=== PATIENT | female | born 1935 | race Caucasian/White ===

== ENCOUNTER 2017-10-27 17:59 | Emergency (ER) | payer MEDICARE ==
[~2017-10-27] VITALS: Ht 165.1 cm; Wt 65.8 kg
[~2017-10-27 17:59] MED LIST: ATENOLOL25 MG PO; CALCIUM + VITA1 EACH PO; MULTIVITAMINS1 EAC7 PO; NORCO 5-325 TA1 EACH PO; SIMVASTATIN10 MG PO; VISION VITAMIN1 EACH PO; VITAMIN B COMP1 EACH PO; VITAMIN C500 M1 PO; VITAMIN E100 UNI1 PO
== END 2017-10-27 19:15 | disposition home or self-care (01) ==
LOC: ED 17:59
DX: M79.605 Pain in left leg (principal); I10 Essential (primary) hypertension; Z87.891 Personal history of nicotine dependence; Z88.8 Allergy status to other drugs, medicaments and biological substances; Z79.899 Other long term (current) drug therapy
CPT/HCPCS: 93971; 99283

== ENCOUNTER 2018-04-17 13:00 | Inpatient (IN) | payer MEDICARE ==
[~2018-04-17] VITALS: Ht 165.1 cm; Wt 85.5 kg
[~2018-04-17 13:00] MED LIST changes: +ADULT ASPIRIN81 MG PO
--- OUTSIDE RECORDS SUMMARY | 2018-04-17 13:04 | XMS ---
PreManage Notification: ROBBIN TAYLOR Security Pasta Maker Events No recent Security Events currently on file CRITERIA MET - [facility] - 2 Visits in 30 Days CARE PROVIDERS Ollie Singletary Treatment Current MD PHONE: Unknown Lian has no Care Guidelines for this patient. [place] VISIT COUNT (12 MO.) 3 [facility] TOTAL 3 NOTE: Visits indicate total known visits. ED/UCC VISIT TRACKING (12 MO.) 04/17/2018 13:00 [facility] TYPE: Emergency COMPLAINT: - SOB 04/05/2018 11:09 [facility] TYPE: Emergency COMPLAINT: - SOB DIAGNOSES: - Other longterm (current) drug therapy - Personal history of transient ischemic attack (TIA), and cerebral infarction without residual deficits - terminal operator (current) use of aspirin - Unspecified atrial fibrillation - Essential (primary) hypertension - Personal history of nicotine dependence - Hyperlipidemia, unspecified - Allergy status to other drugs, medicaments and biological substances status - Shortness of breath 10/27/2017 17:59 [facility] [place] TYPE: Emergency COMPLAINT: - POSS BLOOD CLOT DIAGNOSES: - Allergy status to other drugs, medicaments and biological substances status - Essential (primary) hypertension - Other watermelon inspector (current) drug therapy - Personal history of nicotine dependence - Pain in left leg INPATIENT VISIT TRACKING (12 MO.) No inpatient visits to display in this time frame [id number]
[2018-04-17] MEDS ORDERED: WARFARIN SODIUM5 MG PO (13:14)
--- NOTE | 2018-04-17 16:57 | NUR ---
REPORT FROM ED NURSE GISELL DOUGHERTY. WAITING PTS ARRIVAL
[2018-04-17] MEDS ORDERED: SIMVASTATIN20 MG PO (17:12)
--- NOTE | 2018-04-17 17:30 | NUR ---
PT ARRIVES TO CCU ROOM 130. PT TRANSFERS TO BSC THEN BED. STEADY ON FEET
--- NOTE | 2018-04-17 18:11 | NUR ---
PT ORIENTED TO NEW ROOM. DECLINES DINNER AT THIS TIME. NEW IV SITE TO RIGHT HAND. PT GIVEN PHONE TO CALL FAMILY. DENIES NEEDS AT THIS TIME.
--- NOTE | 2018-04-17 18:39 | NUR ---
PT UP TO BEDSIDE COMMODE TO VOID. PT VERY SOB WITH EXERTION. INCREASED WORK OF BREATHING, TACHYPNIC UP TO 40 AND PULSE UP TO 160. PT RECOVERED WHEN BACK TO BED, THOUGH NOT COMPLETELY WITH OUT RESTING FOR A LONG TIME. WILL DISCUSS WITH DR BRADY
--- NOTE | 2018-04-17 18:55 | NUR ---
FULLER PLACED AFTER SPEAKING WITH DR BRADY. IMMIDEIATE RETURN OF 320 ML.
--- NOTE | 2018-04-17 18:55 | NUR ---
DILT DRIP TITRATED UP 10 MG/HR.
--- NOTE | 2018-04-17 19:22 | NUR ---
REPORT GIVEN TO JOEL
--- NOTE | 2018-04-17 19:59 | NUR ---
PATIENT RESTING IN BED WITH HOB ELEVATED, APPEARS SOB. SPO2 IS 97% ON ROOM AIR, RR IS 30. REPOSITIONED PATIENT IN BED, PATIENT STATES IT FEELS BETTER ONCE SITTING IN BETTER POSITION. STATES SHE CONTINUES TO FEEL MILDLY SOB. WHEN SITTING UP TO LISTEN TO LUNG SOUNDS, PATIENT'S SOB WORSENS, IMPROVES QUICKLY AT REST. DENIES NEEDS AT THIS TIME, DENIES PAIN. HEART RATE WELL CONTROLLED, BP WNL, CARDIZEM GTT AT 10 MG/HR. PERIPHERAL PULSES WELL FELT, HAS 1+ EDEMA IN BLE. CALL LIGHT WITHIN REACH.
--- NOTE | 2018-04-17 21:20 | NUR ---
PATIENT RESTFUL WITH EYES CLOSED, BREATHING APPEARS UNLABORED, RR IS 25, SPO2 95% ON ROOM AIR. CARDIZEM GTT AT 7.5 MG/HR, HEART RATE BETWEEN 80 AND 95. CALL LIGHT WITHIN REACH.
--- NOTE | 2018-04-17 23:47 | NUR ---
CARDIZEM GTT TITRATED TO 7.5 MG/HRR.
--- NOTE | 2018-04-17 23:55 | NUR ---
DR. BRADY NOTIFIED ABOUT PATIENT'S TACHYPNEA AND COARSE CRACKLES IN BLL OF LUNGS. X1 DOSE OF 40 MG IV LASIX ORDERED. ALSO NOTIFIED MD THAT BLOOD NOTED IN URINE AND THAT SMALL CLOTS ARE PRESENT. NO NEW ORDERS AT THIS TIME.
--- NOTE | 2018-04-18 00:20 | NUR ---
CARDIZEM GTT TITRATED TO 5 MG/HR DUE TO HEART RATE OF 73. 40 MG IV LASIX GIVEN X1. PATIENT IS RESTFUL, DENIES NEEDS. CALL LIGHT WITHIN REACH.
--- NOTE | 2018-04-18 01:34 | NUR ---
PATIENT PLACED ON 2L O2 VIA NC DUE TO SPO2 DOWN TO 85% WHILE ASLEEP.
--- NOTE | 2018-04-18 03:00 | NUR ---
PATIENT RESTFUL IN BED, BREATHING IS EVEN AND UNLABORED ON 2L O2, SPO2 95%. CARDIZEM GTT TURNED OFF. CALL LIGHT WITHIN REACH.
--- NOTE | 2018-04-18 04:00 | NUR ---
PATIENT RESTING WITH EYES CLOSED. BREATHING IS EVEN AND UNLABORED, SPO2 93% ON 2L O2. LUNG SOUNDS IMPROVED AFTER LASIX ADMINISTRATION, MINIMAL CRACKLES HEART IN LEFT LOWER LUNG. PATIENT DENIES NEEDS AT THIS TIME. CALL LIGHT WITHIN REACH.
--- NOTE | 2018-04-18 06:12 | NUR ---
PATIENT ASSISTED TO BEDSIDE COMMODE TO HAVE BM, SBA. UNABLE TO HAVE BM, NOW BACK IN BED. RR INCREASED TO 30 WITH ACTIVITY, PATIENT REPORTS FEELING MILDLY SOB. QUICKLY RECOVERS ONCE IN BED. DENIES FURTHER NEEDS. CALL LIGHT WITHIN REACH.
--- NOTE | 2018-04-18 07:16 | EKG ---
[facility] [address] [place] [address] Signed Atrial fibrillation with rapid ventricular response Left axis deviation Nonspecific intraventricular block Cannot rule out Septal infarct , age undetermined Abnormal ECG When compared with ECG of 05-APR-2018 11:26, Minimal criteria for Septal infarct are now present Confirmed by CLYDE BRADY MD ([id number]) on 04/18/2018 7:16:15 AM Electronically Signed By: CLYDE BRADY MD 04/18/18 0716 PATIENT NAME: ROBBIN TAYLOR Electrocardiogram DATE OF : 39 PHYSICIAN: CLYDE BRADY MD REPORT #: [id number] REPORT IS CONFIDENTIAL AND NOT TO BE RELEASED WITHOUT AUTHORIZATION
--- NOTE | 2018-04-18 07:30 | NUR ---
REPORT RC'D FROM NETWORK FIELD ENGINEER NURSES VIJI. REPORTS CARDIZEM GTT DC'D AT 0300, HR WELL CONTROLLED. PT CURRENTLY RESTING IN BED, RESPIRATIONS EVEN AND UNLABORED, NO ACUT DISTRESS NOTED.
--- NOTE | 2018-04-18 09:00 | NUR ---
PT UP IN BED AND REQUESTING BREAKFAST. PT A&O X4 AND RESPONDING APPROPRIATELY. CARDIZEM GTT DC'D, HR IN LOW 100'S, CONTINUE TO MONITOR. BUL CLEAR, CRACKLES TO RLL, LLL CLEAR, ON ROOOM AIR, OCCANSIONAL COUGH. TOLERATING CARDIAC DIET, DENIES NAUSEA. FULLER CATH IN PLACE DRAINING TEA COLORED URINE, BROWN SEDIMENT NOTED. PT DUE FOR BM. +1 EDEMA NOTED TO BLE. EDUCATION PROVIDED ON NEW MEDICATIONS AND POSSIBLE SIDE EFFECTS, ALL QUESTIONS ANSWERED, VERBALIZED UNDERSTANDING. PT TO TRANSFER TO MEDICAL FLOOR LATE THIS MORNING.
--- NOTE | 2018-04-18 10:20 | NUR ---
REPORT GIVEN TO MEDICAL FLOOR NURSE FRANKIE. PT SBA TO CHAIR, TOELRATED WELL. PT TRANSFERED VIA CHAIR WITH JUAN MAZARIEGOS TO MEDICAL FLOOR.
--- NOTE | 2018-04-18 10:31 | NUR ---
PT ARRIVED TO UNIT VIA CHAIR. ALERT AND ORIENTED TO ALL. DENIES PAIN OR SOB AT REST. IV SL, FLUSHES WELL, DRESSING INTACT. FULLER PATENT PUTTING OUT DARK YELLOW URINE. ASSESSMENT COMPLETED. CALL LIGHT WITHIN REACH.
--- NOTE | 2018-04-18 13:30 | NUR ---
PT SITTING UP IN CHAIR. ATE 100% OF LUNCH, FREDA WELL. PT SBA TO RESTROOM TO BRUSH HER TEETH. CAPPS BUT STATES "IT'S BETTER THAN IT WAS BEFORE." AMB BACK TO RECLINER. CALL LIGHT WITHIN REACH.
[2018-04-18] MEDS ORDERED: OMEGA 3-6-9 11200 M1 PO (13:45)
--- NOTE | 2018-04-18 14:35 | NUR ---
PATIENT IN CHAIR. FRESH WATER GIVEN. CALL LIGHT IN REACH. NO FURTHER NEEDS AT THIS TIME.
--- NOTE | 2018-04-18 14:42 | NUR ---
PT REPORTS NEED TO HAVE BM. HAS BEEN TWO DAYS SINCE PAST BM. SHE SAID SHE USUALLY EATS SOMETHING GREASY AT HOME. RN ASKED IF PRUNE JUICE MIGHT HELP, PT SAID, "YES, THAT JUST MIGHT WORK." RN ORDERED FROM KITCHEN.
--- NOTE | 2018-04-18 16:07 | NUR ---
PT IN RECLINER SLEEPING SOUNDLY. RESP EVEN AND UNLABORED.
--- NOTE | 2018-04-18 17:47 | NUR ---
PATIENT SITING UP IN CHAIR. PATIENT STANDS UP TO USE BASE COMMODE. ONE PERSON ASSISTING. PATIENT BACKS TO BED. VITAL SIGNS AND I&O DONE. CALL LIGHT WITHIN REACH. NO OTHER NEEDS AT THIS TIME
--- NOTE | 2018-04-18 17:48 | NUR ---
CALLED DUE TO SUSTAINED TACHYCARDIA 120'S 160'S HEART RATE AT REST. MD SAID SHE WOULD PUT IN ORDER
--- NOTE | 2018-04-18 18:31 | NUR ---
CHARGE NURSE NOTIFIED THIS RN THAT PT WAS HAVING ELEVATED HR 140-150. PT ASSESSED. ASYMPTOMATIC, VS WITHING NORMAL RANGE FOR PT (SEE DOCUMENTED VS). DR. BRADY NOTIFED AND NEW ORDERS WRITTEN. MEDS ADMINISTERED AT THIS TIME. PT SITTING IN BED. CALL LIGHT WITHIN REACH. WILL CONT TO MONITOR CLOSELY.
--- NOTE | 2018-04-18 19:30 | NUR ---
RECEIVED REPORT FROM DAY SHIFT RN. PATIENT IS RESTING IN BED. PATIENT DENIES ANY NEEDS AT THIS TIME. CALL LIGHT IN REACH.
--- NOTE | 2018-04-18 20:20 | NUR ---
PATIENT ASSESMENT COMPLETED. VITALS TAKEN AND RECORDED. PATIENTS EVENING MEDICATIONS GIVEN PER ORDER. PATIENT IS RESTING IN BED. PATIENT DENIES ANY SOB AT THIS TIME. PATIENT IS ON TELE #4, IRREFGULAR RHYTHM, HR 83. PATIENT DENIES ANY COMMENTS, QUESTIONS, OR CONCERNS. NO NEEDS NOTED. CALL LIGHT IN REACH.
--- NOTE | 2018-04-18 22:59 | NUR ---
PATIENT IS RESTING IN BED WITH EYES CLOSED. PATIENTS BREATHING IS EVEN AND UNLABORED. TELE #4, IRREGULAR RHYTM, HR 91. CALL LIGHT IN REACH.
--- NOTE | 2018-04-19 00:08 | NUR ---
PATIENT IS RESTING IN BED WITH EYES CLSOED, RR 17. TELE #4, HR 88. CALL LIGHT IN REACH.
--- NOTE | 2018-04-19 02:33 | NUR ---
PATIENTS VITALS TAKEN AND RECORDED. PATIENTS FULLER EMPTIED. PATIENTS 0200 MEDICATIONS GIVEN PER ORDER. PATIENT DENIES ANY FURTHER NEEDS. CALL LIGHT IN REACH.
--- NOTE | 2018-04-19 03:52 | NUR ---
PATIENT IS RESTING IN BED WITH EYES CLSOED, RR 18. TELE #4, IRREGULAR RHYTHM, HR 81. CALL LIGHT IN REACH.
--- NOTE | 2018-04-19 05:37 | NUR ---
PATIENT RESTED WELL THROUHGOUT THE SHIFT. PATIENT IS ON A CARDIAC DIET AND IS TOLERATING IT WELL, NO COMPLAINTS OF NAUSEA. PATIENT IS ON RA. FULLER IN PLACE-NOT CHRONIC. PATIENT IS A SBA AND IS STEADY ON HER FEET. PATIENT IS SL AND IV FLUSHES WELL. PATIENT IS ON TELE #4, IRREGULAR RHYTHM, HR IN BETWEEN 90-105. PATIENT IS AAOX3 AND USES CALL LIGHT APPROPRIATELY.
--- NOTE | 2018-04-19 06:02 | NUR ---
PATIENTS VITALS TAKEN AND RECORDED. PATIENTS DAILY WEIGHT TAKEN AND RECORDED. FULLER EMPTIED. PATIENTS ICE WATER REFILLED. PATIENT DENIES ANY FURTHER NEEDS. PATIENT REMAINS ON TELE #4, IRREGULAR, HR 88. NO NEEDS NOTED. CALL LIGHT IN REACH.
--- NOTE | 2018-04-19 07:35 | NUR ---
Patient was awake, face washed, call light n reach and fresh water given. Patient will take a shower after Breakfast.
--- NOTE | 2018-04-19 08:46 | NUR ---
PATIENT WAS UP TO THE BATHROOM WHEN I ENTERED THE ROOM, SHE HAD A LOOSE BM SO SHE REFUSED THE STOOL SOFTNERS AND MIRALAX ORDERED THIS AM. SHE IS STEADY ON HER FEET AND WAS ABLE TO WALK FROM THE BATHROOM TO THE CHAIR WITHOUT ANY ASSISTANCE. SHE HAS NO C/O CHEST PAIN OR FEELING OF HEART RACING ALTHOUGHT THE TELE PER CCU STATES THAT HR IN THE BR IS 180 DOCTOR CAITLYN NOTIFIED AND AM MEDICATION GIVEN. PATIENT VITALS DONE AND SHE IS UP TO THE CHAIR.
--- NOTE | 2018-04-19 08:48 | NUR ---
FULLER REMOVED, 200 MLS EMPTIED OF YELLOW URINE.
--- NOTE | 2018-04-19 09:53 | NUR ---
PATIENT ASLEEP UP IN THE CHAIR, CALL LIGHT IN HER LAP, TELE #4 ON HR 108
--- NOTE | 2018-04-19 10:52 | NUR ---
PATIENT BACK TO BED AFTER TAKING A SHOWER WITH THE ASSIST OF THE BOILING TUB OPERATOR. PATIENT STATES THAT SHE FEELS 100% BETTER AFTER SHOWERING. HOB ELEVATED AND SHE REMAINS ON RA. NO C/O PAIN OR SOB AT THIS TIME
[2018-04-19] MEDS ORDERED: CEPHALEXIN250 MG PO (11:43)
[2018-04-19] MEDS ORDERED: COUMADIN2 MG PO (11:43)
[2018-04-19] MEDS ORDERED: DILTIAZEM 24HR120 MG PO (11:44)
[2018-04-19] MEDS ORDERED: COREG3.125 MG PO (11:44)
--- NOTE | 2018-04-19 11:56 | NUR ---
Patient ate breakfast than wanted a shower,patient did her own oral care, and did most of her body wash. Patient is STB A. Patient is now back in her bed. call light in reach.
[2018-04-19] MEDS ORDERED: WARFARIN SODIUM1 MG PO (11:58)
--- NOTE | 2018-04-19 12:03 | NUR ---
PATIENT'S IV IN THE RIGHT HAND DC'D TIP INTACT, TELE ALSO DC'D PATIENT DENIES OTHER NEEDS AT THIS TIME
--- NOTE | 2018-04-19 12:52 | NUR ---
PATIENT GIVEN D/C INSTRUCTIONS, QUESTIONS ANSWERED AND CAREGIVER WEB SITE INSTRUCTIONS FOR [place] GIVEN TO HER FOR HELP AT HOME PER HER REQUEST. PATIENT REMAINS STEADY ON HER FEET WITHOUT ANY CHEST PAIN.
--- NOTE | 2018-04-20 12:24 | NUR ---
Heart failure follow up call #1 DC diagnosis of heart failure likely reduced EF, echo was deferred due to holiday. To follow up with Dr. Jensen today at 1345. Spoke to patient concerning heart failure home care and DC orders. She states she has stopped one BB and started the new one. Has all of her new medications. She does not have a working scale. Does not feel she understands what she is suppose to eat on low salt diet. She lives alone and her sister will be bringing her to today's cardiology visit. I have taken a Medline digital scale and heart failure packet, including low sodium shopping list and lower salt dining options, to Dr. Jensen's office for patient to corn picker today.
[2018-04-21] MEDS ORDERED: FUROSEMIDE20 MG PO (11:53)
[2018-04-28] MEDS ORDERED: WARFARIN SODIUM5 MG PO (09:13)
[2018-05-10] MEDS ORDERED: WARFARIN SODIU2.5 MG PO (13:23)
[2018-05-31] MEDS ORDERED: AMIODARONE HCL200 MG PO (10:09)
== END 2018-04-19 15:11 | disposition home or self-care (01) | DRG 291 ==
LOC: ED 13:00 → CCU 16:41 → MS 16:41
PROVIDERS: ADMIT Internal Medicine
DX: I11.0 Hypertensive heart disease with heart failure (principal); I50.21 Acute systolic (congestive) heart failure; D68.9 Coagulation defect, unspecified; N39.0 Urinary tract infection, site not specified; I48.91 Unspecified atrial fibrillation; E78.5 Hyperlipidemia, unspecified; I44.7 Left bundle-branch block, unspecified; B96.20 Unspecified Escherichia coli [E. coli] as the cause of diseases classified elsewhere; E55.9 Vitamin D deficiency, unspecified; T45.515A Adverse effect of anticoagulants, initial encounter; Z79.01 Long term (current) use of anticoagulants; Z86.73 Personal history of transient ischemic attack (TIA), and cerebral infarction without residual deficits; Z79.82 Long term (current) use of aspirin; Z87.891 Personal history of nicotine dependence
CPT/HCPCS: 36415; 71045; 80048; 80053; 81001; 83735; 83880; 84484; 85025; 85610; 85730; 87077; 87088; 87186; 93005; 93010; 99285-25

== ENCOUNTER 2018-05-25 13:03 | Emergency (ER) | payer MEDICARE ==
[~2018-05-25] VITALS: Ht 165.1 cm; Wt 85.5 kg
[~2018-05-25 13:03] MED LIST changes: +CEPHALEXIN250 MG PO; +COREG3.125 MG PO; +COUMADIN2 MG PO; +DILTIAZEM 24HR120 MG PO; +FUROSEMIDE20 MG PO; +OMEGA 3-6-9 11200 M1 PO; +SIMVASTATIN20 MG PO; +WARFARIN SODIU2.5 MG PO; +WARFARIN SODIUM1 MG PO; +WARFARIN SODIUM5 MG PO
--- OUTSIDE RECORDS SUMMARY | 2018-05-25 13:06 | XMS ---
PreManage Notification: ROBBIN TAYLOR Security Gas Station Manager Events No recent Security Events currently on file CRITERIA MET - [facility] - Has Care Guidelines CARE PROVIDERS DIVINE SOLITARIO [facility] 04/27/2018-Current PHONE: [phone] Chandan Solitario Internal Medicine: Pulmonary Disease 04/20/2018-Current PHONE: Unknown Ollie Singletary Current PHONE: Unknown Lian has no Care Guidelines for this patient. Care History Medical/Surgical 04/20/2018 [facility] - Patient is currently established with [facility]. If patient is seen in the ED during business hours. Please contact CHWs at [facility]. Care Recommendation: This patient has had 5 or more Emergency Department visits in the last 12 months.\T\nbsp; Patient requires education on the scope and purpose of the ED as an acute care provider not a Primary Care Provider and should not be utilized for chronic conditions.\T\nbsp; These are guidelines and the provider should exercise clinical judgment when providing care. E.D. VISIT COUNT (12 MO.) 4 [facility] TOTAL 4 NOTE: Visits indicate total known visits. ED/UCC VISIT TRACKING (12 MO.) 05/25/2018 13:04 [facility] TYPE: Emergency COMPLAINT: - CHEST PAIN 04/17/2018 13:00 [facility] TYPE: Emergency COMPLAINT: - SOB 04/05/2018 11:09 [facility] TYPE: Emergency COMPLAINT: - SOB DIAGNOSES: - Other nursing home (current) drug therapy - Personal history of transient ischemic attack (TIA), and cerebral infarction without residual deficits - half-way (current) use of aspirin - Unspecified atrial [...] status - Essential (primary) hypertension - Other terminal computer operator (current) drug therapy - Personal history of nicotine dependence - Pain in left leg INPATIENT VISIT TRACKING (12 MO.) 04/17/2018 16:[address] [facility] [place] TYPE: Medical Surgical COMPLAINT: - A-FIB,RVR,COAGULOPATHY DIAGNOSES: - Coagulation defect, unspecified - Personal history of nicotine dependence - buttermaker continuous churn (current) use of aspirin - Adverse effect of anticoagulants, initial encounter - Hypertensive heart disease with heart failure - Unspecified atrial fibrillation - Left bundle-branch block, unspecified - Acute systolic (congestive) heart failure - Urinary tract infection, site not specified - Hyperlipidemia, unspecified - Vitamin D deficiency, unspecified - Personal history of transient ischemic attack (TIA), and cerebral infarction without residual deficits - buttermaker continuous churn (current) use of anticoagulants - Unspecified Escherichia coli [E. coli] as the cause of diseases classified elsewhere [email or web address]
--- NOTE | 2018-05-26 00:33 | EKG ---
[facility] [address] [place] [address] Signed Atrial fibrillation with rapid ventricular response Left axis deviation Left bundle branch block Abnormal ECG When compared with ECG of 17-APR-2018 13:06, No significant change was found Confirmed by MIKKI JONAS MD ([id number]) on 05/26/2018 12:33:49 AM Electronically Signed By: MIKKI JONAS MD 05/26/18 0033 PATIENT NAME: CLAUDIAROBBIN RACHEL Electrocardiogram DATE OF : 39 PHYSICIAN: MIKKI JONAS MD REPORT #: [id number] REPORT IS CONFIDENTIAL AND NOT TO BE RELEASED WITHOUT AUTHORIZATION
--- NOTE | 2018-05-26 00:34 | EKG ---
[facility] [address] [place] [address] Signed Atrial fibrillation Left axis deviation Left bundle branch block Abnormal ECG When compared with ECG of 25-MAY-2018 13:12, (Unconfirmed) Vent. rate has decreased BY 70 BPM Confirmed by MIKKI JONAS MD ([id number]) on 05/26/2018 12:33:57 AM Electronically Signed By: MIKKI JONAS MD 05/26/18 0034 PATIENT NAME: ROBBIN TAYLOR Electrocardiogram DATE OF : 39 PHYSICIAN: MIKKI JONAS MD REPORT #: [id number] REPORT IS CONFIDENTIAL AND NOT TO BE RELEASED WITHOUT AUTHORIZATION
--- NOTE | 2018-05-26 00:34 | EKG ---
[facility] [address] [place] [address] Signed Normal sinus rhythm Left axis deviation Left bundle branch block Abnormal ECG When compared with ECG of 25-MAY-2018 13:49, (Unconfirmed) Sinus rhythm has replaced Atrial fibrillation Confirmed by MIKKI JONAS MD ([id number]) on 05/26/2018 12:34:08 AM Electronically Signed By: MIKKI JONAS MD 05/26/18 0034 PATIENT NAME: ROBBIN TAYLOR Electrocardiogram DATE OF : 39 PHYSICIAN: MIKKI JONAS MD REPORT #: [id number] REPORT IS CONFIDENTIAL AND NOT TO BE RELEASED WITHOUT AUTHORIZATION
[2018-05-31] MEDS ORDERED: AMIODARONE HCL200 MG PO (10:09)
== END 2018-05-25 16:57 | disposition home or self-care (01) ==
LOC: ED 13:03
DX: I48.91 Unspecified atrial fibrillation (principal); I10 Essential (primary) hypertension; E78.5 Hyperlipidemia, unspecified; Z87.891 Personal history of nicotine dependence; Z88.8 Allergy status to other drugs, medicaments and biological substances; Z79.899 Other long term (current) drug therapy; Z79.01 Long term (current) use of anticoagulants; Z79.82 Long term (current) use of aspirin
CPT/HCPCS: 80048; 84484; 85025; 85610; 85730; 93005; 93010; 96374; 96375; 99152; 99285-25; J0282; J2704; J7060

== ENCOUNTER 2019-07-18 08:50 | Emergency (ER) | payer MEDICARE ==
[~2019-07-18] VITALS: Ht 165.1 cm; Wt 85.3 kg
[~2019-07-18 08:50] MED LIST changes: +ACYCLOVIR400 MG PO; +AMIODARONE HCL200 MG PO; +CARVEDILOL12.5 MG PO; +CARVEDILOL6.25 MG PO
--- OUTSIDE RECORDS SUMMARY | 2019-07-18 08:52 | XMS ---
PreManage Notification: ROBBIN OJEDA Security Log Check Scaler Events No recent Security Events currently on file CRITERIA MET - [facility] - Has Care Guidelines CARE PROVIDERS DIVINE COOPER [facility] 04/27/2018-Current PHONE: [phone] ALLISON ALVAREZ Internal Medicine: Pulmonary Disease 04/20/2018-Current PHONE: Unknown Ollie Singletary Current PHONE: Unknown Lian has no Care Guidelines for this patient. Care History Medical/Surgical 04/20/2018 [facility] - Patient is currently established with [facility]. If patient is seen in the ED during business hours. Please contact CHWs at [facility]. Care Recommendation: This patient has had 5 [...] providing care. E.D. VISIT COUNT (12 MO.) 1 [facility] TOTAL 1 NOTE: Visits indicate total known visits. ED/C VISIT TRACKING (12 MO.) 07/18/2019 08:50 [facility] TYPE: Emergency COMPLAINT: - RAPID HEART BEAT INPATIENT VISIT TRACKING (12 MO.) No inpatient visits to display in this time frame [email or web address]
== END 2019-07-18 10:44 | disposition home or self-care (01) ==
LOC: ED 08:50
DX: I48.0 Paroxysmal atrial fibrillation (principal); I10 Essential (primary) hypertension; E78.5 Hyperlipidemia, unspecified; Z87.891 Personal history of nicotine dependence; Z79.899 Other long term (current) drug therapy
CPT/HCPCS: 80053; 83735; 84484; 85025; 85610; 99285-25

== ENCOUNTER 2020-05-22 11:31 | Emergency (ER) | payer MEDICARE ==
[~2020-05-22] VITALS: Ht 165.1 cm; Wt 85.3 kg
[~2020-05-22 11:31] MED LIST changes: +ADULT ASPIRIN R81 MG PO; +AMIODARONE HCL100 MG PO; -CARVEDILOL6.25 MG PO; +VITAMIN D325 MCG; +VITAMIN D325 MCG PO
--- OUTSIDE RECORDS SUMMARY | 2020-05-22 11:34 | XMS ---
PreManage Notification: ROBBIN OJEDA Security Stuntman Events No recent Security Events currently on file CRITERIA MET - [facility] - Has Care Guidelines CARE PROVIDERS DIVIEN SOLITARIO [facility] 04/27/2018-Current PHONE: [phone] ALLISON ALVAREZ Internal Medicine: Pulmonary Disease 04/20/2018-Current PHONE: Unknown Lian has no Care Guidelines for this patient. Care History Medical/Surgical 07/19/2019 [facility] Patient has scheduled appointment with Dr. Solitario on 08/16/2019.\T\nbsp; Patient stated she was not able to get in earlier for follow up visit as PCP is booked.\T\nbsp; Sent request for 7-10 day follow up visit. 04/20/2018 [facility] - Patient is currently established with [facility]. If patient is seen in the ED during business hours. Please contact CHWs at [facility]. Care Recommendation: This patient has had [...] providing care. E.D. VISIT COUNT (12 MO.) 2 [facility] TOTAL 2 NOTE: Visits indicate total known visits. ED/UCC VISIT TRACKING (12 MO.) 05/22/2020 11:32 [facility] [place] TYPE: Emergency COMPLAINT: - CHEST PAIN 07/18/2019 08:[address] [facility] [place] TYPE: Emergency COMPLAINT: - RAPID HEART BEAT DIAGNOSES: - Hyperlipidemia, unspecified - Unspecified atrial fibrillation - Paroxysmal atrial fibrillation - Personal history of nicotine dependence - Other buttermaker (current) drug therapy - Essential (primary) hypertension - Paroxysmal atrial fibrillation INPATIENT VISIT TRACKING (12 MO.) No inpatient visits to display in this time frame [id number]
--- NOTE | 2020-05-22 23:53 | EKG ---
[facility] [address] [place] [address] Signed Sinus bradycardia Left axis deviation Left bundle branch block Abnormal ECG When compared with ECG of 22-MAY-2020 11:39, (Unconfirmed) Vent. rate has decreased BY 70 BPM Confirmed by CLYDE BRADY MD ([id number]) on 05/22/2020 11:53:40 PM Electronically Signed By: CLYDE BRADY MD 05/22/20 2353 PATIENT NAME: ROBBIN OJEDA Electrocardiogram DATE OF : 39 PHYSICIAN: CLYDE BRADY MD REPORT #: [id number] REPORT IS CONFIDENTIAL AND NOT TO BE RELEASED WITHOUT AUTHORIZATION
--- NOTE | 2020-05-22 23:53 | EKG ---
[facility] [address] [place] [address] Signed Sinus tachycardia Left axis deviation Left bundle branch block Abnormal ECG Confirmed by CLYDE BRADY MD ([id number]) on 05/22/2020 11:53:15 PM Electronically Signed By: CLYDE BRADY MD 05/22/20 2353 PATIENT NAME: SEGUNDO ROBBIN BOWEN Electrocardiogram DATE OF : 39 PHYSICIAN: CLYDE BRADY MD REPORT #: [id number] REPORT IS CONFIDENTIAL AND NOT TO BE RELEASED WITHOUT AUTHORIZATION
--- NOTE | 2020-05-23 16:46 | NUR ---
ED follow up call completed. Feb 2020 echocardiogram EF 60%. She is feeling, just a little short of breath. Reports her heart seems to be beating regularly. Home BP 126/72 HR 56 and upon recheck 117/62 HR 59. No dizziness. Has all of her medications and knows what furosemide is for. Has a cardiology appointment on July 10. I encouraged her to make an appointment with Dr Solitario for ED follow up.
[2020-07-30] MEDS ORDERED: CARVEDILOL3.125 MG PO (13:21)
[2020-08-09] MEDS ORDERED: TORSEMIDE10 MG PO (20:17)
[2020-08-27] MEDS ORDERED: SOTALOL80 MG PO (13:07)
[2020-08-27] MEDS ORDERED: SPIRONOLACTONE25 MG PO (13:07)
[2020-08-27] MEDS ORDERED: MAG-OXIDE400 MG PO (13:08)
[2020-08-27] MEDS ORDERED: KLOR-CON M1010 MEQ PO (13:09)
[2020-08-27] MEDS ORDERED: MOMETASONE FURO15 GM TOP (13:17)
== END 2020-05-22 14:45 | disposition home or self-care (01) ==
LOC: ED 11:31
DX: I48.0 Paroxysmal atrial fibrillation (principal); I10 Essential (primary) hypertension; E78.5 Hyperlipidemia, unspecified; Z87.891 Personal history of nicotine dependence; Z88.8 Allergy status to other drugs, medicaments and biological substances; Z79.899 Other long term (current) drug therapy; Z79.01 Long term (current) use of anticoagulants
CPT/HCPCS: 71045; 80053; 83735; 83880; 84484; 85025; 85610; 85730; 93005; 93010; 96374; 99285-25

== ENCOUNTER 2020-07-07 03:09 | Inpatient (IN) | payer MEDICARE ==
[~2020-07-07] VITALS: Ht 165.1 cm; Wt 72.7 kg
--- OUTSIDE RECORDS SUMMARY | 2020-07-07 05:19 | XMS ---
PreManage Notification: ROBBIN TAYLOR Security Steel Analyst Events No recent Security Events currently on file CRITERIA MET - Group Notification - [facility] - Has Care Guidelines CARE PROVIDERS DIVINE SOLITARIO [facility] 05/23/2020-Current PHONE: [phone] ALLISON ALVAREZ Internal Medicine: Pulmonary Disease 04/20/2018-Current PHONE: Unknown Lian has no Care Guidelines for this patient. Care History Medical/Surgical 07/19/2019 [facility] Patient has scheduled appointment with Dr. Solitario on 08/16/2019.\T\nbsp; Patient stated she was not able to get in earlier for follow up visit as PCP is booked.\T\nbsp; Sent request for 7-10 day follow up visit. 04/20/2018 [facility] - Patient is currently established with [facility]. If patient is seen in the ED during business hours. Please contact CHWs at [facility]. Care Recommendation: This patient has had [...] providing care. E.D. VISIT COUNT (12 MO.) 3 [facility] TOTAL 3 NOTE: Visits indicate total known visits. ED/UCC VISIT TRACKING (12 MO.) 07/07/2020 03:10 [facility] TYPE: Emergency COMPLAINT: - SOB 05/22/2020 11:32 [facility] TYPE: Emergency COMPLAINT: - CHEST PAIN DIAGNOSES: - Other keno terminal operator (current) drug therapy - Personal history of nicotine dependence - Chest pain, unspecified - Allergy status to other drugs, medicaments and biological substances - Paroxysmal atrial fibrillation - shelter (current) use of anticoagulants - Essential (primary) hypertension - Hyperlipidemia, unspecified 07/18/2019 08:50 [facility] [place] TYPE: Emergency COMPLAINT: - RAPID HEART BEAT DIAGNOSES: - Hyperlipidemia, unspecified - Unspecified atrial fibrillation - Paroxysmal atrial fibrillation - Personal history of nicotine dependence - Other keno terminal operator (current) drug therapy - Essential (primary) hypertension - Paroxysmal atrial fibrillation INPATIENT VISIT TRACKING (12 MO.) No inpatient visits to display in this time frame [id number]
--- NOTE | 2020-07-07 05:46 | NUR ---
PATIENT ARRIVED FROM ER VIA STRETCHER WITH RN TRANSPORTING. PATIENT IS BREATHING BETTER AFTER THE LASIX FROM THE ER. PATIENT'S LUNGS ARE CLEAR, BOWEL TONES ACTIVE, VS STABLE. PATIENT IS HARD OF HEARING, BUT HAS NO HEARING AIDES, USES NO AMBULATION DEVICES, IS STEADY ON HER FEET IN THE ROOM, BUT HAS DYSPNEA WITH EXERTION. PATIENT RESTING IN BED, TAUGHT ABOUT THE USE OF THE CALL LIGHT, BED CONTROLS, AND TV REMOTE. PATIENT HAS ICE WATER AND SOME POP SHE REQUESTED. CALL LIGHT IS IN REACH.
--- NOTE | 2020-07-07 06:27 | NUR ---
PT ARRIVED TO THE FLOOR VIA STRETCHER AT 0546. ORIENTED PT TO ROOM AND CALL LIGHT. PT STATES HER BREATHING IS ALREADY MUCH BETTER AFTER RECEIVING LASIX. SHE USED THE [facility] SBA. COMPLETED ADMISSTION HX WITH PT AND SHE HAS TELE IN PLACE. [place] AT BEDSIDE. PT USED RESTROOM AGAIN AND DENIES SOB WITH AMBULATION. CALL LIGHT IS CLOSE AND PT DENIES FURTHER NEEDS.
--- NOTE | 2020-07-07 07:06 | NUR ---
RN ROUNDING ON PT DUE TO ELEVATED HR ON TELE MONITOR, PT FOUND STANDING IN ROOM THIS COIN ROLLING MACHINE OPERATOR IN TO ASST PT AND GET PT WEIGHT VIA STANDING SCALE, NO FURTHER NEEDS
--- NOTE | 2020-07-07 07:15 | NUR ---
REPORT TO ERASTO MILLER RN.
--- NOTE | 2020-07-07 09:47 | NUR ---
PATIENT IS SITTING UP IN HER CHAIR. VITALS AND I&OS ARE DONE AND DOCUMENTED. FRESH WATER GIVEN. CALL LIGHT IS IN REACH. NO FURHTER NEEDS AT THIS TIME.
--- NOTE | 2020-07-07 10:30 | NUR ---
Patient resting in bed, alert and oriented x4. Patient denies pain and or chest pain. No needs. Personal supplies and call light within reach. Bed alarm intact.
--- NOTE | 2020-07-07 12:36 | EKG ---
[facility] [address] [place] [address] Signed Atrial fibrillation with rapid ventricular response Left axis deviation Left bundle branch block Abnormal ECG Confirmed by CLYDE BRADY MD ([id number]) on 07/07/2020 12:36:09 PM Electronically Signed By: CLYDE BRADY MD 07/07/20 1236 PATIENT NAME: ROBBIN TAYLOR Electrocardiogram DATE OF : 39 PHYSICIAN: CLYDE BRADY MD REPORT #: [id number] REPORT IS CONFIDENTIAL AND NOT TO BE RELEASED WITHOUT AUTHORIZATION
--- NOTE | 2020-07-07 14:05 | NUR ---
FRESH WATER GIVEN. VITALS AND I&OS ARE DONE AND DOCUMENTED. CALL LIGHT IS IN REACH. NO FURTHER NEEDS AT THIS TIME.
--- NOTE | 2020-07-07 14:25 | NUR ---
Patient in bed resting, eyes closed with no notable distress. Call light within reach.
--- NOTE | 2020-07-07 17:33 | NUR ---
PATIENT SITTING UP IN BED. FRESH WATER GIVEN. VITALS AND I&OS ARE DONE AND DOCUMENTED. CALL LIGHT IS IN REACH. NO FURTHER NEEDS AT THIS TIME.
--- NOTE | 2020-07-07 18:53 | NUR ---
Patient tachycardic with ambulation to the restroom. Heart rate increased to 155bpm per tele, sustained 120-130's. Patient reports sob with activity, denies chest pain. Pt back to bed. Dr. Aries robledoied; new order obtained for one time dose of lopressor 5mg IVP.
--- NOTE | 2020-07-07 19:37 | NUR ---
PATIENT RESTING IN BED AND WATCHING TV. HR=92 IN A-FIB ON THE TELE. PATIENT HAS NO CURRENT CARE NEEDS.
--- NOTE | 2020-07-07 20:18 | NUR ---
PATIENT HAVING NO PAIN AT THIS TIME. VS ARE STABLE, PATIENT'S ICE WATER REFILLED. ASSESSMENT COMPLETE. NO OTHER CARE NEEDS AT THIS TIME. CALL LIGHT IN REACH.
--- NOTE | 2020-07-07 21:20 | NUR ---
WENT INTO THE ROOM TO CHECK PATIENT'S TELE. PATIENT NEEDED TO USE THE BEDSIDE COMMODE. 1 PA. PATIENT VOIDED SCANT URINE AROUND 25CC. PATIENT IS BACK IN BED. WARM BLANKET PROVIDED. BED ALARM ON FOR SAFETY.
--- NOTE | 2020-07-07 22:05 | NUR ---
PATIENT CALLED AND FELT THE NEED TO HAVE A BOWEL MOVEMENT. UP TO BEDSIDE COMMODE WITH 1PSBA. PATIENT HAD A MEDIUM BROWN STOOL. BACK TO BED 1PSBA. PATIENT'S ICE WATER REFILLED. NO OTHER NEEDS AT THIS TIME. CALL LIGHT IN REACH.
--- NOTE | 2020-07-07 23:54 | NUR ---
PATIENT RESTING QUIETLY ON HER LEFT SIDE, EYES CLOSED, RESPIRATIONS REGUALR AND EVEN, CALL LIGHT IN REACH.
--- NOTE | 2020-07-08 00:10 | NUR ---
CALL LIGHT ANSWERED. 1 PA TO BEDSIDE COMMODE. PATIENT IS BACK IN BED. DECAF COFFEE PROVIDED PER PATIENT'S REQUEST.
--- NOTE | 2020-07-08 02:12 | NUR ---
PT UP TO BSC TO VOID. SM BM AND UNMEASURED URINE. PT ASSISTED BACK TO BED. REPORTS SOME NAUSEA AND REQUESTS SALTINE CRACKERS. EMESIS BAG PROVIDED. VITALS PERFORMED. TELE READS A-FIB RHYTHM AND HR 100-130. DECAF COFFEE PROVIDED; CALL LIGHT WITHIN REACH.
--- NOTE | 2020-07-08 03:18 | NUR ---
pt C/O NAUSEA. NIO NAUSEA MEDICATION ADMINISTERED. EDUCATION PROVIDED TO pt. QUESTIONS ANSWERED. SPRITE PROVIDED REQUESTED. CALL LIGHT IN REACH.
--- NOTE | 2020-07-08 03:20 | NUR ---
SBA. BEDSIDE COMMODE. PATIENT IS BACK IN BED. HOSE BUILDER CAESAR WAS WITH PATIENT. CALL LIGHT WITHIN REACH.
--- NOTE | 2020-07-08 06:19 | NUR ---
IN ROOM FOR MORNING VITALS AND DAILY WEIGHT. VSS EXCEPT HR WHICH REMAINS TACHYCARDIC, AFIB RHYTHYM. PT IS ALERT, ORIENTED AND IN GOOD SPIRITS TODAY. PT IS EXPERIENCING URINE FREQUENCY WITH SMALL OUPUT AMOUNTS. BODY COMPONENT ENGINEER IN ROOM THIS NURSE LEFT ROOM.
--- NOTE | 2020-07-08 07:27 | NUR ---
Patient resting in bed, alert and oriented x4. Patient's heart rate is 100-120bpm, afib. Patient denies chest pain, sob and palpitations. Patient reports she is doing fine at this time. Bed alarm intact.
--- NOTE | 2020-07-08 09:20 | NUR ---
PATIENT IN BED RESTING. WARM WASHCLOTH GIVEN. FRESH WATER GIVEN. VITALS AND I&O'S CHARTED. CALL LIGHT IN REACH. NO FURTHER NEEDS AT THIS TIME. PATIENT WANTS TO USE WARM BATH WIPES TONIGHT BEFORE BED.
--- NOTE | 2020-07-08 09:20 | NUR ---
Pt states she lives alone in a 1 story house with a weiner dog. She does not use dme except for a shower bench. Sons live out of state. Older sister lives in town and the check on each other. They both drive. She would like some help in the home to mop and do cleaning. Helping hands brochure given. Denies other needs. Pt states she has been referred for pace maker to [facility], but has not gone as she cannot afford the cost of transportation. Spoke with Belen Piper. She suggests to ask if pt belongs to a gnosticist, if not they may be able to assist pt with cost of transportation, if her gnosticist is unable to do so.
--- NOTE | 2020-07-08 12:10 | NUR ---
Certified Heart Failure Nurse Notes: Diagnosis: Atrial fibrillation and CHF Billing Representative Dr Jensen- pt reports having a visit scheduled this 07/10/20 at 1415 PCP: Dr Solitario EF 49% per Nuc Stress test record October 2018 Admit Wt.: 81.4 kg Admit BNP: Social support system: Lives alone. Reports neighbors don't check on her. Weight monitoring: Scale present in home. Discussed how to weigh daily/ identifies when to notify PCP. Patient recognizes that she was gaining weight but did not associate it with heart failure at the time. Symptom management: Addressed monitoring and reporting changes in weight or symptoms. Transportation mode: Drives self. Reports that lately it felt as if her feet were slipping of pedals. She assumes it is from feet swelling that she was not acknowledging. Diet: Patient reports cooking very little fresh foods. Eats lunch meats and TV dinners (lean cuisine). She does read the label on the frozen dinners but is not diligent about looking at other process foods. Does not use table salt, does use a lot of pepper. Encouraged patient to read labels and become familiar with foods she usually buys for sodium content. Usual physical activity: Self-care and housework. Reports having difficulty with housekeeping tasks requiring higher METS such as mopping or vacuuming. She may consider having someone come in to assist with those. She has asked about exercise to keep her strength. Recommended, after acute issues resolved, to initiate slow progressive walks (start at 5 minutes several times a day) and add on minutes weekly. She has resistance bands at home and will consider getting them back out to use while watching TV. Medication routine: Declines using 7 day reminder box, states it is too much trouble. She has her own method and denies problems remembering or running out of medications. Has been counseled on minimizing/avoiding use of NSAIDs Advanced directive: Not discussed at this visit Recommendations prior to discharge: Document ambulation oxygen saturations prior to discharge Absence of orthostatic hypotension. Discharge weight less than admit weight. Discharge BNP less than admit (as per [facility] Heart Failure DC Bundle) Perhaps physical therapy due to self-reporting multiple falls in her yard over the past year. Follow-up plans: Conferred with fiber heel piece shaper. Patient agrees to receive follow up call from this service. Patient does not currently qualify for cardiac rehabilitation but would be welcome for complimentary outpatient heart failure education. Teaching materials given today: [facility] contact information Low Sodium Shopping list. Frozen meals what to look for.
--- NOTE | 2020-07-08 13:01 | NUR ---
Patien alert and oriented x4. Patient sitting up eating lunch at this time. Patient denies sob at rest. No needs. Call light within reach.
--- NOTE | 2020-07-08 13:47 | NUR ---
PATIENT IN BED RESTING. VITALS AND I&O'S CHARTED. CALL LIGHT IN REACH. NO FURTHER NEEDS AT THIS TIME.
--- NOTE | 2020-07-08 15:26 | NUR ---
Assisted patient to bedside commode for an attempted bm. Patient voided and back to bed. Patient reports sob with activity.
--- NOTE | 2020-07-08 18:27 | NUR ---
PATIENT IN BED RESTING. VITALS AND I&O'S CHARTED. WANTS WARM BATHWIPES BEFORE BED. CALL LIGHT IN REACH. NO FURTHER NEEDS AT THIS TIME.
--- NOTE | 2020-07-08 19:17 | NUR ---
SHIFT REPORT FROM NURSE MAURER. PT LAYING IN BED, TALKING ON THE PHONE. NO APPARENT NEEDS AT THIS TIME. CALL LIGHT WITHIN REACH.
--- NOTE | 2020-07-08 19:35 | NUR ---
SBA TO BEDSIDE COMMODE. PATIENT VOIDED 3OO ML. PATIENT IS BACK IN BED. CALL LIGHT WITHIN REACH.
--- NOTE | 2020-07-08 21:16 | NUR ---
CALL LIGHT ANSWERED, pt DIAPHORETIC. COOL CLOTH PROVIDED, TEMPERATURE IN ROOM ADJUSTED. pt STATES "I DON'T FEEL RIGHT, I FEEL WEAK LIKE I'M GOING TO PASS OUT AND SICK TO MY STOMACH". PRIMARY RN IN ROOM ASSESSING pt CBG, VS. pt UP TO BSC AT THIS TIME.
--- NOTE | 2020-07-08 21:33 | NUR ---
CALL LIGHT ANSWERED. PT REPORTS FEELING "SWEATY AND SICK". PT IS FOUND TO BE DIAPHORETIC LAYING IN BED. PT REQUESTS TO USE COMMODE. PT WAS ASSISTED BY JUAN ACUNA TO COMMODE. VS 121/74 MAP84, SPO2 96% T 97.6ORALLY, HR 90S RR 30S. THIS NURSE PERFORMED CBG WHICH WAS 172. PT REPORTS FEELING BETTER WHEN SITTING UPRIGHT, NO LONGER FEELING SWEATY. LUNG SOUNDS CLEAR, BOWEL TONES ACTIVE. TELE READS IN AN AFIB RHYTHYM. CALL IN TO DR JONAS TO UPDATE HIM. PER DR JONAS CONTINUE TO MONITOR.
--- NOTE | 2020-07-08 22:28 | NUR ---
CHECKED ON PT, PT SITTING UP IN BED WATCHING TV. REPORTS NO PROBLEMS AT THIS TIME. TELE MONITOR SHOWS HR LOW 90S, AFIB RHYTHM. CALL LIGHT WITHIN REACH.
--- NOTE | 2020-07-08 23:11 | NUR ---
CALL LIGHT ANSWERED. PT UP TO BSC. PT REPORTS A "STOMACHACHE" ALTHOUGH OVERALL FEELS BETTER. PT PASSES A LOT OF GAS ON BSC. PT HAS A MED/LARGE SOFT BM. PT TO SINK TO BRUSH TEETH AND RETURNS TO BED. CALL LIGHT WITHIN REACH
--- NOTE | 2020-07-09 00:15 | NUR ---
SBA. PATIENT WAS UP TO BEDSIDE COMMODE. PATIENT HAD MEDIUM SOFT BOWEL MOVEMENT. PATIENT IS BACK IN BED. 3 CRACKERS PROVIDED PER REQUEST. CALL LIGHT WITHIN REACH.
--- NOTE | 2020-07-09 00:37 | NUR ---
IN ROOM FOR SCHEDULED MEDS. PT AWAKE AND WATCHING TV. VSS. PT DENIES FURTHER NEEDS AT THIS TIME.
--- NOTE | 2020-07-09 02:33 | NUR ---
CALL LIGHT ANSWERED. PT REQUESTS HOT PACK FOR ABDOMEN. FRESH HOT PACK PROVIDED. PT DECLINES NEEDS FOR PRN PAIN MEDS AT THIS TIME. STATES HER STOMACH FEELS "ACIDY".
--- NOTE | 2020-07-09 03:14 | NUR ---
PT CONTINUES TO C/O LOWER ABDOMINAL PAIN. WHEN ASKED TO POINT TO THE MOST PAINFUL AREA, PT POINTS TO LLQ, NEARLY GROIN. PT REQUESTS ANOTHER WARM PACK FOR HER ABDOMEN STATING THAT THE HOT PACK DOES RELIEVE SOME OF THE DISCOMFORT. PT DECLINES TRYING TYLENOL FOR THE PAIN. WITH FURTHER DISCUSSION, PT REPORTS THAT SHE ALSO HAS BEEN TOLD BY A PREVIOUS DOCTOR THAT SHE HAS INTERNAL HEMORRHOIDS. CALL LIGHT WITHIN REACH, HOT PACK TO ABDOMEN
--- NOTE | 2020-07-09 04:20 | NUR ---
JUAN ACUNA NOTED THAT PT HAS NOT HAD URINE OUTPUT THIS SHIFT. BLADDER SCAN REVEALS 457ML. CALL IN TO DR JONAS; ORDER FOR ONE TIME STRAIGHT CATH. STRAIGHT CATH PERFORMED. APPROX 500ML DARK YELLOW URINE DRAINED. PT IMMEDIATELY FELT RELIEF FROM LOWER ABDOMINAL PAIN. PT RETURNED TO BED, CALL LIGHT WITHIN REACH.
--- NOTE | 2020-07-09 06:39 | NUR ---
IN ROOM FOR MORNING MANUFACTURING CHIEF ENGINEER. PT REPORTS STILL A BIT OF NAUSEA AND SOB THAT IS UNCHANGED. HR 90S. CALL LIGHT WITHIN REACH.
--- NOTE | 2020-07-09 07:21 | NUR ---
Spoke with JANI High for assist with transportation funds. She has worked with pt in the past and attempted to set up with Senior Artillery Officer. She also suggests for pt to contact her advent for assistance. Will review with pt.
--- NOTE | 2020-07-09 08:10 | NUR ---
Patient resting on side, respirations even and non labored. Patient has no notable distress. Personal supplies and call light within reach.
--- NOTE | 2020-07-09 09:12 | NUR ---
Patient walked 150ft in hallway standby assist. Patient took several breaks, she reported shortness of breath with ambulation. Highest heart rate noted to be 114bpm per tele. Back to bed. No chest pain reported. Call light within reach.
--- NOTE | 2020-07-09 10:47 | NUR ---
PATIENT IN BED RESTING. VITALS AND I&O'S CHARTED. WARM WASH CLOTH GIVEN EARLIER. CALL LIGHT IN REACH. NO FURTHER NEEDS AT THIS TIME.
--- NOTE | 2020-07-09 14:15 | NUR ---
PATIENT SITTING UP IN CHAIR VISITING WITH VISITOR. CALL LIGHT IN REACH. NO FURTHER NEEDS AT THIS TIME.
--- NOTE | 2020-07-09 14:44 | NUR ---
VISITED WITH LADONNA ARRIAZA REGARDING TRANSPORTATION TO [facility] IN [place]. WILL WORK TOGETHER ON OPTIONS TO GET PT THERE.
--- NOTE | 2020-07-09 15:00 | NUR ---
Spoke with Ramandeep and her sister. Per pt she will stay 2-3 more days. Discussed need to go to [facility] for work up. Pt does not belong to a jew. I did speak with Zeus from Spiritual care and he will also check for resources for transportation so pt can get further treatment.
--- NOTE | 2020-07-09 16:11 | NUR ---
Zofran 4mg odt admin for reports of nausea.
--- NOTE | 2020-07-09 18:52 | NUR ---
PATIENT IN BED TALKING ON PHONE. VITALS AND I&O'S CHARTED. BED BATH GIVEN. NEW GOWN PROVIDED. LINENS CHANGED. CALL LIGHT IN REACH. NO FURTHER NEEDS AT THIS TIME.
--- NOTE | 2020-07-09 19:21 | NUR ---
REPORT RECEIVED FROM DAY SHIFT RN. PT LYING IN BED ALERT AND ORIENTED. DENIES NEEDS AT THIS TIME. WHITE BOARD UPDATED. CALL LIGHT IN REACH.
--- NOTE | 2020-07-09 20:34 | NUR ---
EVENING ASSESSMENT COMPLETE. VS WNL. PT DENIES CP OR SOB. DENIES PAIN. C/O SLIGHT NAUSEA THAT HAS BEEN ONGOING FOR SEVERAL DAYS. WILL MEDICATE WITH PRN WHEN AVAILABLE. EDEMA NOTED IN BLE, FEET ELEVATED AT THIS TIME. TELE #5 AFIB. HR 90'S-LOW 100'S. PT DENIES QUESTIONS OR CONCERNS. CALL LIGHT IN REACH.
--- NOTE | 2020-07-09 20:55 | NUR ---
CALL LIGHT ANSWERED. PT REPORTS GETTING UP TO BR INDEPENDENTLY TO HAVE LARGE FORMED BM AND BACK TO BED. SOB NOTED. DISCUSSED WITH PT TO USE NURSE CALL LIGHT FOR SAFETY. PT VERBALIZES UNDERSTANDING. REPORTS NAUSEA SLIGHTLY IMPROVED AFTER BM. BED ALARM FOR SAFETY. CALL LIGHT IN REACH.
--- NOTE | 2020-07-09 22:42 | NUR ---
BED ALARM SOUNDING. PT SITTING ON SIDE OF BED. SBA TO BR TO ATTEMPT A VOID BUT NOT SUCCESSFUL. GAIT STEADY. BACK TO BED, FREDA WELL. SLIGHT CAPPS NOTED. HOB ELEVATED. BED ALARM FOR SAFETY.
--- NOTE | 2020-07-10 00:33 | NUR ---
CALL LIGHT ANSWERED. PT UP TO BR WITH MINIMAL SBA TO HAVE AN UNMEASURED VOID. BACK TO BED, FREDA WELL. SCHEDULED MEDS ADMINISTERED. AT REST PT HR 80'S, UP TO 90'S-100'S WITH AMBULATION. INCREASED RESPIRATIONS NOTED WITH ACTIVITY. PT DENIES CP OR SOB. BED ALARM FOR SAFETY.
--- NOTE | 2020-07-10 01:09 | NUR ---
CHECKED PATIENT'S TELE. PATIENT IS AWAKE. PATIENT NEEDS TO USE THE BATHROOM. BEDSIDE COMMODE PROVIDED. PATIENT VOIDED 1OO ML. PATIENT IS BACK IN BED. CALL LIGHT WITHIN REACH. BED ALARM ON.
--- NOTE | 2020-07-10 02:33 | NUR ---
ACCOMPANIED PATIENT AMBULATE 1 LAP FROM ROOM TO HALLWAY X1. PATIENT STATED SHE IS OKAY. PATIENT NOTICED A LITTLE SHORT OF BREATH. PATIENT DID A "STOP AND GO" WALK. PATIENT'S HEART RATE MOSTLY IN UPPER 90'S AND THE HIGHEST WAS 110. PATIENT IS BACK IN BED. BED ALARM ON FOR SAFETY.
--- NOTE | 2020-07-10 02:43 | NUR ---
PT WALKED FROM ROOM TO FBC DOORS, TO BACK NURSES STATION, AND THEN BACK TO ROOM WITH SBA FROM CNC LATHE MACHINE OPERATOR. PT TOOK OCCASIONAL BREAK, CAPPS NOTED. HR 80'S TO 110 BEING THE HIGHEST NOTED ON MONITOR.
--- NOTE | 2020-07-10 04:14 | NUR ---
PT RESTING IN BED WITH EYES CLOSED, NAD.
--- NOTE | 2020-07-10 06:05 | NUR ---
PT UP TO BSC TO VOID 15 ML. REPORTS SHE FELT LIKE SHE NEEDED TO GO. AFTER VOID DOES NOT FEEL THE URGE TO VOID MORE. BLADDER SCANNED FOR 527 ML. PT DENIES PRESSURE OR THE URGE TO VOID. 0630- PT UP TO BR TO VOID 100 ML YELLOW URINE AND HAVE SMALL BM. DENIES PAIN OR BURNING WITH URINATION. DENIES PRESSURE OR THE URGE TO VOID. URINE IS NOTED TO BE CLOUDY AND HAVE SLIGHT ODOR.
--- NOTE | 2020-07-10 07:30 | NUR ---
SHIFT REPORT FROM NURSE BLANCO. PT AWAKE AND SITTING UP IN BED. REPORTS HUNGER, NO NAUSEA AT THIS TIME. DENIES NEEDS AT THIS TIME. CALL LIGHT WITHIN REACH.
--- NOTE | 2020-07-10 08:14 | NUR ---
PATIENT EATING BREAKFAST IN BED. CALL LIGHT WITHIN REACH NO FUTHER NEEDS AT THIS TIME.
--- NOTE | 2020-07-10 09:17 | NUR ---
PATIENT UP IN CHAIR. LINENS CHANGED. I&O'S DOCUMENTED AND VITAL SIGNS CALL LIGHT WITHIN REACH NO FUTHER NEEDS AT THIS TIME.
--- NOTE | 2020-07-10 10:00 | NUR ---
ASSESSMENT COMPLETE. PT UP IN CHAIR; BREAKFAST FINISHED. APPETITE IMPROVING. PT REPORTS FEELING SOB STILL ALTHOUGH FEELS THAT IT IS BETTER THAN WHEN SHE GOT ADMITTED. TELE STATES THAT HR IS IN 80-90S. BLE EDEMA 2+. PT REPORTS NO PAIN, SLIGHT NAUSEA, OVERALL PT STATES SHE IS TIRED. IV LASIX ADMINISTERED AT INCREASED ORDERED DOSE. PT DENIES FURTHER NEEDS AT THIS TIME. CALL LIGHT WITHIN REACH.
--- NOTE | 2020-07-10 12:00 | NUR ---
IN TO CLEAR PT LUNCH TRAY. PT ATE APPROX 75-80% LUNCH; NO REPORTED NAUSEA. PT WOULD LIKE TO TAKE AN UNINTERUPPTED NAP. NAP SIGN HUNG ON DOOR. NO FURTHER NEEDS AT THIS TIME. CALL LIGHT WITHIN REACH.
--- NOTE | 2020-07-10 12:31 | NUR ---
ADMINISTERED SCHEDULED MEDS. PT HAD JUST BEEN UP TO RESTROOM. TOLERATED WELL. HR BOUNCING BETWEEN 46-92. BP STABLE.
--- NOTE | 2020-07-10 13:06 | NUR ---
Pt sitting chair. Will not dc today. Spiritual care is working to find transportation for this pt to cardiology at [facility].
--- NOTE | 2020-07-10 13:28 | NUR ---
AFTER CONNECTING WITH IVY ARRIAZA, I HAD A GOOD VISIT WITH PT. SHE SAID SHE IS FEELING SOMEWHAT BETTER, BUT SEEMED TO BE STRESSING OVER GETTING TO TRICITIES TO KEEP APPTS. PT GAVE PERMISSION TO CONTACT A LOCAL SIKH TO SEE IF THEY CAN ASSIST. THE SIKH MAY BE ABLE TO HELP-NEED DATES TO HELP ARRANGE. I WILL LET SIKH KNOW SOON WE KNOW. HAD PRAYER WITH PT AND LEFT A G.POST. WILL FOLLOW NEEDED
--- NOTE | 2020-07-10 14:41 | NUR ---
PATIENT GETTING READY TO SHOWER. VITAL SIGNS DOCUMENTED AND I&O'S. CALL LIGHT WITHIN REACH NO FUTHER NEEDS AT THIS TIME.
--- NOTE | 2020-07-10 14:45 | NUR ---
PT PREPARING FOR A SHOWER. SCHEDULED IV MEDS ADMINISTERED. PT REPORTS HAVING A GOOD NAP. JUAN CANALES IN ROOM WITH PT. NO FURTHER NEEDS AT THIS TIME.
--- NOTE | 2020-07-10 16:39 | NUR ---
IN ROOM FOR SCHEDULED MEDS. PT TAKING A NAP BUT AWAKES FOR MACHINE CLOTHING MAN. ASSESSMENT COMPLETE. URINE OUTPUT INCREASING.; NO FURTHER NEEDS AT THIS TIME. CALL LIGHT WITHIN REACH.
--- NOTE | 2020-07-10 17:54 | NUR ---
PATIENT DONE WITH DINNER RESTING IN BED. VITAL SIGNS AND I&O'S DOCUMENTED. CALL LIGHT WITHIN REACH NO FUTHER NEEDS AT THIS TIME.
--- NOTE | 2020-07-10 19:15 | NUR ---
RECEIVED REPORT, PT IS IN RESTROOM AT THIS TIME.
--- NOTE | 2020-07-10 20:40 | NUR ---
IN ROOM TO ASSESS PT. SHE DENIES PAIN AND DENIES SOB AT THIS TIME. SHE STATES SHE HAS SOME SOB WHILE UP AND GOING TO THE BATHROOM. SHE DENIES DIZZINES WHILE AMBULATING TO THE RESTROOM. PT CONTINUES TO HAVE PITTING EDEMA IN BILAT FEET AND EDEMA IN BILAT LE. SHE IS ON TELE #5 IN A-FIB. PT DENIES FURTHER NEEDS AT THIS TIME. CALL LIGHT IS CLOSE.
--- NOTE | 2020-07-11 00:25 | NUR ---
ASSISTED PT TO RESTROOM AND BACK TO BED. SHE HAS VOIDED 1000MLS SINCE LAST RECORDED I&O'S. ADMINISTERED METOPROLOL, PT'S HR WHILE UP TO THE RESTROOM WAS IN THE 80'S. PT DENIES FURTHER NEEDS AT THIS TIME. CALL LIGHT IS CLOSE.
--- NOTE | 2020-07-11 02:47 | NUR ---
PT IS RESTING WITH EYES CLOSED, RR IS EVEN AND NONLABORED. CALL LIGHT IS CLOSE HR ON TELE IS 71.
--- NOTE | 2020-07-11 03:51 | NUR ---
PT AWAKE IN BED, REQUESTED COFFEE FROM JUAN SOLITARIO. DENIES FURTHER NEEDS.
--- NOTE | 2020-07-11 05:48 | NUR ---
IN ROOM TO ADMINISTER LOPRESSOR, VS AND I&O'S ENTERED. DAILY WEIGHT DOWN 2.7KG TODAY FROM YESTERDAY. PT CONTINUES TO HAVE EDEMA BILAT LE'S AND SOB WHILE UP UP TO THE RESTROOM. PT DENIES NEEDS AT THIS TIME CALL LIGHT IS CLOSE.
--- NOTE | 2020-07-11 07:30 | NUR ---
SHIFT REPORT FROM NURSE TONY. PT AWAKE AND SITTING UP IN BED. PT DENIES NEEDS AT THIS TIME. REPORTS THAT SHE IS FEELING BETTER. TELE HR 70-80S. CALL LIGHT WITHIN REACH.
--- NOTE | 2020-07-11 09:00 | NUR ---
ASSESSMENT COMPLETE. PT SITTING UP IN BED EATING BREAKFAST. PT REPORTS STILL SOME MALAISE/LIGHT NAUSEA HOWEVER IS ABLE TO EAT MEALS NOW. DENIES NEEDS FOR ANTIEMETICS. URINE OUTPUT REMAINS GOOD. PT FOLLOWS FLUID RESTRICTION WELL. TELE HR 70-90S AT REST. BLE EDEMA REMAINS. LUNG SOUNDS CLEAR. NO FURTHER NEEDS AT THIS TIME. CALL LIGHT WITHIN REACH.
--- NOTE | 2020-07-11 09:55 | NUR ---
in room for emergency medical dispatcher. pt up in bed, talking on phone. takes meds willingly. no further needs at this time. call light within reach
--- NOTE | 2020-07-11 10:30 | NUR ---
Spoke with Ramandeep and discussed appt yesterday which was cancelled. She states Cristiana [facility] the [facility] rescheduled and brought her a letter. New appt is for 07/17/20 at 0930. Copied letter and left for clerk Michaela. We also discussed her appt for a pace maker. She states this is what her appt with Dr. Jensen is for on the . Discussed with pt, spiritual care is attempting to find transport for her if she needs to go to [facility]. Asked her to please call Zeus Kulkarni when she has a date set. She states they have been friends for years and she will call him.
--- NOTE | 2020-07-11 12:00 | NUR ---
IN ROOM FOR UPDATED MANAGER SHIPPING. PT GETTING READY FOR LUNCH. STATES SHE FEELS WELL AND IS PLANNING HER LOW SODIUM DIET FOR AT HOME. URINE HATS EMPTIED 1200ML CLEAR YELLOW URINE. CALL LIGHT WITHIN REACH.
--- NOTE | 2020-07-11 13:24 | NUR ---
PT HAD FINISHED AMBULATING IN [place], SITTING IN BED RESTING AND WATCHING TV. PT HAS FIRST APPT WITH [facility] HERE NEXT WEEK. INSTRUSTED TO CALL IF SHE IS IN NEED OF HELP FOR RIDES-SHE ACKNOWLEDGED. GAVE BLESSING
--- NOTE | 2020-07-11 14:30 | NUR ---
IN ROOM FOR ELEMENTARY VOCAL MUSIC TEACHER. PT NAPPING, LAYING RIGHT LATERAL. AWAKES FOR ELEMENTARY VOCAL MUSIC TEACHER AND NOW WANTS TO NAP. NAP TIME CARD PUT ON DOOR. CALL LIGHT WITHIN REACH.
--- NOTE | 2020-07-11 15:23 | NUR ---
PATIENT SET UP IN THE CHAIR FOR A LITTLE BIT THIS MORNING WHILE I CHANGED THE SHEETS SHE ALSO WANTS TO TAKE A SHOWER SOMETIME TODAY.
--- NOTE | 2020-07-11 16:40 | NUR ---
in room for medical administrative and assessment. pt leg edema appears to be improving. pt up to shower at this time with dilshad grimes. lung sounds clear. urine output excellent.
--- NOTE | 2020-07-11 19:28 | NUR ---
SHIFT REPORT RECEIVED FROM CORRINA DOUGHERTY. PT RESTING IN BED. NO NEEDS AT THIS TIME. CALL LIGHT IN REACH.
--- NOTE | 2020-07-11 21:44 | NUR ---
ASSESSMENT COMPLETED. GCS 15,A&O X4. LUNGS CLEAR, HEART TONES IRREGULAR. ABD SOFT, NONTENDER, PT STATES NORMAL, BOWEL TONES ACTIVE. CMS INTACT. BLE EDEMA 2+. IV WNL, CDI, FLUSHED WELL. NO OTHER NEEDS AT THIS TIME. CALL LIGHT IN REACH.
--- NOTE | 2020-07-11 22:25 | NUR ---
SCHEDULED MEDS PROVIDED.
--- NOTE | 2020-07-11 23:41 | NUR ---
SCHEDULED MED PROVIDED.
--- NOTE | 2020-07-12 00:05 | NUR ---
PT RESTIN GIN BED, IV MED INFUSING. NO NEEDS AT THIS TIME. CALL LIGHT IN REACH.
--- NOTE | 2020-07-12 01:41 | NUR ---
CALL LIGHT ON, IN TO PLUG CALL LIGHT BACK IN TO THE WALL AFTER GETTING PULLED
--- NOTE | 2020-07-12 02:32 | NUR ---
ASSESSMENT COMPLETED. LUNGS CLEAR, HEART TONES REGULAR. ABD SOFT, NONTENDER, BOWEL TONES ACTIVE. PT DENIES SOB WITH WALKING TO BR AND BACK. CMS INTACT. 2+ BLE EDEMA. NO OTHER NEEDS AT THIS TIME. CALL LIGHT IN REACH.
--- NOTE | 2020-07-12 04:20 | NUR ---
PT RESTING IN BED, EYES CLOSED. RR EVEN, UNLABORED. CALL LIGHT IN REACH.
--- NOTE | 2020-07-12 06:05 | NUR ---
IN TO GET PT VITALS, DAILY WEIGHT TAKEN, ABLE TO PROVIDE PT WITH 150 MLs OF COFFEE TO TIDE PT OVER TILL BREAKFAST
--- NOTE | 2020-07-12 06:34 | NUR ---
PT DID NOT SLEEP UNTIL AFTER 0100 DUE TO MEDICATION ADMINISTRATION. IVs WNL. NO NAUSEA OR PAIN. BLE 2+ EDEMA. NO SOB NOTED WHEN GOING TO BR AND BACK TO BED. DW 75.3kg. PT TOLERATED FLUID RESTRICTION FAIR. VSS. UOS.
--- NOTE | 2020-07-12 07:57 | NUR ---
PT AWAKE SITTING UP IN BED W/ BREAKFAST. IN TO GIVE MORNING MEDICATIONS. LUNG SOUNDS CLEAR BUL, DIMINISHED IN BASES W/ CRACKLES IN LEFT LOWER LOBE. BLE EDEMA HAS IMPROVED TO 1+. PT DENIES PAIN OR NAUSEA THIS MORNING. HR 70'S AND IRREGULAR. 200 MG PO METOPROLOL GIVEN. BP 115/54. PT HAS NO OTHER NEEDS AT THIS TIME. CALL LIGHT IN REACH.
--- NOTE | 2020-07-12 10:50 | NUR ---
DR JONAS IN TO SEE PT. NEW ORDERS FOR 250 MG DIAMOX IV, 60 MG IV LASIX, AND PO POTASSIUM 20 MEQ. MEDICATIONS GIVEN BY THIS RN. PT UP TO WALK WITH DAMARIS MARTINEZ.
--- NOTE | 2020-07-12 11:00 | NUR ---
SPOKE WITH PATIENT IN ROOM. PATIENT IS VERY PLEASANT, [place]. PATIENT IS HOPING TO GO HOME, BUT STATES "IT DEPENDS ON MY POTASSIUM TODAY". WE SPOKE AT LENGTH ABOUT HER LIFE, SHE STATES THE APPOINTMENT WITH DR MULLINS ON THE IS IN [place] SO SHE WILL BE ABLE TO GET THERE WITHOUT PROBLEMS HER FAMILY CAN TAKE HER LOCALLY. SHE STATES SHE ISN'T SURE HOW TO GET THERE FOR SURGERY AND HOME. I DISCUSSED THAT OUR CASE MANAGEMENT TEAM IS GOING TO TRY AND HELP HER FIGURE THAT OUT. SHE IS GLAD FOR THE HELP. WILL ASK HALLEY GUNTER TO LOOK AT THIS NEXT WEEK. EMAIL SENT TO HER.
--- NOTE | 2020-07-12 11:50 | NUR ---
PATIENT ON A 2 GRAM SODIUM. SHE IS EATING WELL. SHE STATES JOHN CAME IN TO TALK TO HER ABOUT A LOW SODIUM DIET. PATIENT SHOWED ME THE HANDOUTS SHE RECEIVED ON A LOW SODIUM DIET. SHE HAS MADE NOTES ON THEM AND HAS BEEN READING THEM. SAID SHE MAY TAKE THEM TO THE GROCERY STORE WHEN SHE GOES. SHE SAID IT WILL TAKE HER SOME TIME TO LEARN IT, BUT SHE WILL KEEP TRYING. SHE GROCERY SHOPS TWICE A MONTH. I SAID THAT'S GOOD THAT SHE IS LEARNING. EATING LOWER SODIUM FOODS WILL HELP PREVENT FLUID ACCUMULATION. SHE SAID SHE REALIZES THAT. LUNCH ARRIVED AND PATIENT NEEDED TO GO TO THE BATHROOM. I HELPED HER CHANGE INTO A DIFFERENT GOWN WITH PANTS PER HER REQUEST. WILL CONTINUE TO BE AVAILABLE FOR ANY NUTRITION NEEDS.
--- NOTE | 2020-07-12 12:00 | NUR ---
PT UP TO BATHROOM TO VOID. 2 HATS EMPTIED OF 1400 MLS. SITTING UP TO EAT LUNCH. PT EATING AND DRINKING WELL. DENIES SOB W/ ACTIVITY. CALL LIGHT IN REACH.
--- NOTE | 2020-07-12 12:10 | NUR ---
WILLI NURSE ORTHOPAEDIC IN WITH PT. WILL CHECK BACK
--- NOTE | 2020-07-12 14:22 | NUR ---
IN TO ADMINISTER IV LASIX AND PO POTASSIUM. PT ALSO GIVEN LACTULOSE FOR CONSTIPATION PER NEW ORDER FROM DR. JONAS. PT WAS C/O NEED TO HAVE BM, STATES SHE HAS NOT HAD ONE FOR A COUPLE DAYS WHICH IS NOT NORMAL FOR HER. VITALS TAKEN, STABLE. PT UP TO BATHROOM TO VOID 900 MLS. HAT EMPTIED. PT SITTING UP IN CHAIR. TALKING ON TELEPHONE. CALL LIGHT IN REACH.
--- NOTE | 2020-07-12 17:27 | NUR ---
PT C/O ABDOMINAL CRAMPING SINCE RECEIVING LACTULOSE THIS AFTERNOON. STATES SHE HAS BEEN "RUNNING TO THE TOILET" WITH SMALL BM'S AND FEELS NO RELIEF. STATES "I DON'T WANT THAT MEDICATION EVER AGAIN". PT GIVEN HER EVENING MEDS W/ NGOC ANDRES TO AIDE IN STOMACH RELIEF. SITTING UP ON SIDE OF BED TO EAT DINNER. BACK TO BATHROOM TO HAVE ANOTHER BM.
--- NOTE | 2020-07-12 18:45 | NUR ---
C. DIFF STOOL SAMPLE OBTAINED AND SENT TO LAB. PT GIVEN IMODIUM. TOLERATED DINNER WELL SO FAR. PT REPORTS PAIN IS MINIMAL AT THIS TIME AND DOES NOT REQUIRE MEDICATION. AMBULATED 2 LAPS THIS EVENING, SBA. LR DECREASED TO 60 MLS/HR. IN ROOM TO VISIT. NO OTHER NEEDS AT THIS TIME. CALL [place] IN REACH.
--- NOTE | 2020-07-12 19:00 | NUR ---
PT BACK IN BED RESTING. ABD PAIN HAS SUBSIDED FOR NOW. PT DID NOT EAT HER DINNER D/T ABD PAIN. CALL LIGHT IN REACH. HOB ELEVATED.
--- NOTE | 2020-07-12 19:05 | NUR ---
SHIFT REPORT RECIEVED FROM THANG DOUGHERTY. PT RESTING IN BED. CALL LIGHT IN REACH.
--- NOTE | 2020-07-12 20:42 | NUR ---
FUEL CONVERSION TECHNICIAN ROUNDING NOTE. PT UTILIZES GIACOMO LIGHT, REQUESTS FRESH PILLOW CASE, PROVIDED. PT REPOTS HAVING HAD LG BM AFTER LACTULOSE. DOGMAN/WOMAN NOTED BM AND EMPTIED STOOL COLLECTION HAT. PT DENIES FURTHER NEEDS AT THIS TIME. CALL LIGHT IN REACH. WHITE BOARD UPDATED.
--- NOTE | 2020-07-13 | NUR ---
PT RESTING IN BED, EYES CLOSED. RR EVEN, UNLABORED. CALL LIGHT IN REACH.
--- NOTE | 2020-07-13 04:01 | NUR ---
PT AWAKE IN ROOM. ASSESSMENT COMPLETED. GCS 15, A&OX4 BUT FORGETFUL AT TIMES. LUNGS CLEAR, HEART TONES IRREGULAR. ABD SOFT, NONTENDER, PT STATES NORMAL, BOWEL TONES ACTIVE. CMS INTACT. NO EDEMA NOTED. NO OTHER NEEDS. CALL LIGHT IN REACH.
--- NOTE | 2020-07-13 04:11 | NUR ---
IN TO CHART PT OUTPUT, CHANGED PT LINENS ON BED, DAILY WEIGHT DONE, VITALS DONE, NO FURTHER NEEDS AT THIS TIME
--- NOTE | 2020-07-13 07:00 | NUR ---
BEDSIDE HANDOFF REPORT RECEIVED FROM DIRECTOR OPERATIONS BROADCAST RN. PT SLEEPING, LEFT UNDISTURBED.
--- NOTE | 2020-07-13 09:15 | NUR ---
PT WALKING AROUND ROOM, INDEPENDENT. PT ON ROOM AIR, DENEIS SOB, LUNG SOUNDS CLEAR. PT DENIES DIZZINESS. PT WITH TRACE TO 1+ EDEMA IN BLE. PT WITH GOOD APPETITE, FOLLOWING FLUID RESTRICTION, BOWEL TONES ACTIVE. CMS INTACT. VSS. PT DENIES OTHER NEEDS AT THIS TIME.
--- NOTE | 2020-07-13 09:58 | NUR ---
DR. JONAS TO BEDSIDE TO EVALUATE PT. PLAN FOR DISCHARGE TODAY.
[2020-07-13] MEDS ORDERED: TORSEMIDE10 MG PO (10:03)
[2020-07-13] MEDS ORDERED: POTASSIUM CHLO10 MEQ PO (10:04)
[2020-07-13] MEDS ORDERED: METOPROLOL SUC200 MG PO (10:05)
[2020-07-13] MEDS ORDERED: MAGNESIUM OXID400 M1 PO (10:06)
--- NOTE | 2020-07-13 12:30 | NUR ---
DISCHARGE INSTRUCTIONS COMPLETD WITH PT. DETAILED REVIEW IF MEDICATIONS. PT GOING TO EAT LUNCH AND WANTS TO SHOWER BEFORE DISCHARGE.
--- NOTE | 2020-07-15 12:53 | NUR ---
Heart failure follow up call. DC'd 07/13 , States was up all night with ill dog whom she had to take to vet this am. She did get blood work done on way home. But she did take her pills late today. Went shopping with friend this weekend and read labels. Purchased some low sodium Aimees soups. She is looking forward to f/u with Dr Jensen on . She agrees to call this service PRN.
== END 2020-07-13 14:50 | disposition home or self-care (01) | DRG 308 ==
LOC: ED 03:09 → MS 03:11
PROVIDERS: ADMIT Internal Medicine; ATTEND Internal Medicine
DX: I48.21 Permanent atrial fibrillation (principal); I50.33 Acute on chronic diastolic (congestive) heart failure; I11.0 Hypertensive heart disease with heart failure; Z20.822 Contact with and (suspected) exposure to COVID-19; I44.7 Left bundle-branch block, unspecified; E78.5 Hyperlipidemia, unspecified; E55.9 Vitamin D deficiency, unspecified; R73.03 Prediabetes; Z87.891 Personal history of nicotine dependence; Z88.1 Allergy status to other antibiotic agents; Z86.73 Personal history of transient ischemic attack (TIA), and cerebral infarction without residual deficits
CPT/HCPCS: 36415; 51798; 71045; 80048; 80053; 80076; 81001; 83735; 83880; 84484; 85025; 85610; 93005; 93010; C9803; J1120; J1940; J2405; J3475; J3480; U0003

== ENCOUNTER 2020-12-27 10:39 | Inpatient (IN) | payer OTHER, MEDICARE ==
[~2020-12-27] VITALS: Ht 165.1 cm; Wt 90.8 kg
[~2020-12-27 10:39] MED LIST changes: +CARVEDILOL3.125 MG PO; +KLOR-CON M1010 MEQ PO; +MAG-OXIDE400 MG PO; +MAGNESIUM OXID400 M1 PO; +METOPROLOL SUC200 MG PO; +MOMETASONE FURO15 GM TOP; +POTASSIUM CHLO10 MEQ PO; +SOTALOL80 MG PO; +SPIRONOLACTONE25 MG PO; +TORSEMIDE10 MG PO
--- OUTSIDE RECORDS SUMMARY | 2020-12-27 10:44 | XMS ---
PreManage Notification: ROBBIN TAYLOR Security Cq Developer Events No recent Security Events currently on file CRITERIA MET - Group Notification - [facility] - Has Care Guidelines [facility]Current PHONE: [phone] ALLISON ALVAREZ Internal Medicine: Pulmonary Disease 04/20/2018-Current PHONE: Unknown Lian has no Care Guidelines for this patient. Care History Medical/Surgical 07/31/2020 [facility] - PATIENT HAS AN APT WITH [facility] DR BELTRE 09/04/2020. - PATIENT HAS BEEN REFERRED TO DR CONTRERAS FOR PACEMAKER. - PATIENT HAS DECLINED RECENT HOME VISIT WITH CHW AND CARDIAC GUEST EXPERIENCE MANAGER. ATTEMPTS TO RESCHEDULE HAS BEEN MADE. - PATIENT HAS AN APT WITH DR SOLITARIO ON 07/29/2020 BUT MISSED THE APT DUE TO SLEEPING- PATIENT BLAMES DROWSINESS ON MEDICATIONS. 07/19/2019 [facility] Patient has scheduled appointment with Dr. Solitario on 08/16/2019.\T\nbsp; Patient stated she was not able to get in earlier for follow up visit as PCP is booked.\T\nbsp; Sent request for 7-10 day follow up visit. 04/20/2018 [facility] - Patient is currently established with [facility]. If patient is seen in the ED during business hours. Please contact CHWs at [facility]. Care Recommendation: This patient has had 5 [...] care. E.D. VISIT COUNT (12 MO.) 4 [facility]. TOTAL 4 NOTE: Visits indicate total known visits. ED/UCC VISIT TRACKING (12 MO.) 12/27/2020 10:40 [facility] TYPE: Emergency COMPLAINT: - FALL 08/09/2020 19:54 [facility] TYPE: Emergency COMPLAINT: - DIARRHEA DIAGNOSES: - Noninfective gastroenteritis and colitis, unspecified - Other detention (current) drug therapy - meterman (current) use of anticoagulants - Essential (primary) hypertension - Unspecified atrial fibrillation - Hyperlipidemia, unspecified - Allergy status to other drugs, medicaments and biological substances - Diarrhea, unspecified 07/07/2020 03:10 [facility] TYPE: Emergency COMPLAINT: - SOB 05/22/2020 11:32 [facility] TYPE: Emergency COMPLAINT: - CHEST PAIN DIAGNOSES: - Other detention (current) drug therapy - Personal history of nicotine dependence - Chest pain, unspecified - Allergy status to other drugs, medicaments and biological substances - Paroxysmal atrial fibrillation - retirement (current) use of anticoagulants - Essential (primary) hypertension - Hyperlipidemia, unspecified INPATIENT VISIT TRACKING (12 MO.) 07/07/2020 07:53 [facility] TYPE: Medical Surgical COMPLAINT: - A-FIB / CHF DIAGNOSES: - Acute on chronic diastolic (congestive) heart failure - Allergy status to other antibiotic agents - Hypertensive heart disease with heart failure - Acute on chronic diastolic (congestive) heart failure - Hyperlipidemia, unspecified - Personal history of transient ischemic attack (TIA), and cerebral infarction without residual deficits - Left bundle-branch block, unspecified - Prediabetes - Paroxysmal atrial fibrillation - Permanent atrial fibrillation - Personal history of transient ischemic attack (TIA), and cerebral infarction without residual deficits - Personal history of nicotine dependence - Hyperlipidemia, unspecified - Hypertensive heart disease with heart failure - Prediabetes - Allergy status to other antibiotic agents - Vitamin D deficiency, unspecified - Permanent atrial fibrillation - Personal history of nicotine dependence - Left bundle-branch block, unspecified - Vitamin D deficiency, unspecified [email or web address]
[2020-12-27] MEDS ORDERED: POTASSIUM CHLO10 MEQ PO (14:18)
--- NOTE | 2020-12-27 14:29 | NUR ---
12/27/20 1428 Jaylene Carrasco 1421- PT ARRIVES TO PACU NONAROUSABLE TO NOXIOUS STIMULI WITH AN OPA IN PLACE. RESP EVEN AND UNLABORED. OXYGEN SAT HIGH 90'S ON 10L VIA MASK. 1427- PT WAKING UP ON HER OWN. PT INSTRUCTED TO OPEN HER MOUTH TO REMOVE THE OPA. PT IS ABLE TO FOLLOW THIS COMMAND AND OPA REMOVED. OXYGEN MASK REPLACED.
--- NOTE | 2020-12-27 14:56 | EKG ---
[facility] [address] [place] [address] Signed Atrial-paced rhythm with prolonged AV conduction Left axis deviation Left bundle branch block Abnormal ECG When compared with ECG of 07-JUL-2020 03:15, Electronic atrial pacemaker has replaced Atrial fibrillation Vent. rate has decreased BY 43 BPM Confirmed by WILFREDO OTERO DO ([id number]) on 12/27/2020 2:56:44 PM Electronically Signed By: WILFREDO OTERO DO 12/27/20 1456 PATIENT NAME: ROBBIN TAYLOR Electrocardiogram DATE OF : 39 PHYSICIAN: WILFREDO OTERO DO REPORT #: [id number] REPORT IS CONFIDENTIAL AND NOT TO BE RELEASED WITHOUT AUTHORIZATION
--- NOTE | 2020-12-27 16:04 | NUR ---
NOTIFIED OF CONSULT FOR
--- NOTE | 2020-12-27 16:45 | NUR ---
PT CAME TO FLOOR AT 1555. PT IS ON 3L O2 NC, BP SOMEWHAT ELEVATED, OTHER V/S WDL. LOBES ARE CLEAR, ABD SOUNDS PRESENT, BILATERAL LOWER LEG EDEMA NOTED +1,PEDIS PULSES +2, PACED RHYTHM. AT 1525 PT STATED THAT SHE HAS HAD NEW ONSET LEFT ARM NUMBNESS SINCE THIS MORNING BEFORE HER FALL AND IT IS STILL PERSISTING. PT THEN ALSO STATED THAT SHE HAS NEW ONSET LEFT LEG NUMBNESS WHICH SHE DID NOT HAVE PRIOR TO SX. MD OTERO WAS CALLED AT 1630 AND INFORMED ABOUT THIS SITUATION AND HAS LOOKED AT THE PT. CT SCAN ORDERED. MD OLIVO WAS CALLED AND INFORMED OF SITUATION AND PLANS AT 1645. WILL HOLD TXA FOR NOW.
--- NOTE | 2020-12-27 17:38 | NUR ---
PT IN ROOM. WAITING FOR CT.
[2020-12-27] MEDS ORDERED: MULTI VITAMIN1 EACH PO (18:34)
--- NOTE | 2020-12-27 18:34 | NUR ---
MED REC COMPLETE
--- NOTE | 2020-12-27 19:00 | NUR ---
SHIFT REPORT RECEIVED FROM CHESTER DOUGHERTY. PT RESTING IN BED, CPOX 96% ON 2L NC. FULLER WNL. DRESSING WNL. NO NEEDS AT THIS TIME. CALL LIGHT IN REACH.
--- NOTE | 2020-12-27 19:14 | NUR ---
BACK FROM CT AT 1855. PT AT THIS TIME IS EATING DINNER. URINE OUTPUT IS WDL SO FAR. RIGHT LEG DRESSING IS D/I WITH A SCANT AMOUNT OF SANGENOUS DRAINAGE PRESENT. PT NOW ON 2L O2 NC. V/S WDL WITH SOME ELEVATED BP'S.
--- NOTE | 2020-12-27 19:16 | NUR ---
PT CAME TO MS AT 1555. PAIN CONTTOL HAS BEEN SOMEWHAT AN ISSUE. PT AT 1630 STATED THAT SHE HAD NEW ONSET NUMBNESS IN HER LEFT ARM AND LEG. MD OTERO AND PALLAVI WERE NOTIFIED AND HEAD CT ORDERED. RESULTS PENDING... PT DOES USE C-PAP AT HOME AND NEEDS ONE HERE TONIGHT. RIGHT HIP DRESSING IS INTACT WITH A SCANT AMOUNT OF SANG. DRAINAGE PRESENT. PREDIS PULSES +2. IT WAS ALSO NOTED THAT PT HAS +1 PITTING EDEMA IN BILATERAL LOWER LEGS.
--- NOTE | 2020-12-27 20:03 | NUR ---
ASKED CO-MEDICAL MANAGEMENT MD TO CLARIFY FLUID ORDER. MD REFERRED ME TO PRIMARY MD OLIVO. NOTIFIED MD OLIVO OF FLUID ORDERS FROM ER STILL BEING ON MAR AND ASKED IF HE WANTED TO CONTINUE THAT ORDER. STATES THAT THE ORDER SHOULD HAVE FALLEN OFF THE MAR AFTER SURGERY. GIVES VERBAL ORDER TO SL PT. ORDER REPEATED BACK. NO OTHER ORDERS.
--- NOTE | 2020-12-27 20:46 | NUR ---
ASSESSMENT, VS AND I&O COMPLETED. SCHEDULED MEDS PROVIDED. R HIP PAIN 7/10, SCHEDULED PAIN MED PROVIDED.GCS 15, A&O X4, PT IS FORGETFUL. LUNGS CLEAR, HEART TONES REGULAR WITH PACER. ABD SOFT, NONTENDER, ACTIVE BOWEL TONES. PT REPORTS NAUSEA, MED PROVIDED. INCISION COVERED IN FOAM DRESSING, SCANT SHADOWING. GENERALIZED EDEMA IN RIGHT HIP/UPPER LEG. IV WNL, CDI, FLUSHED WELL. PT DENIES NUMBNESS AND TINGLING, CMS INTACT. JIMMY QUINTANILLA, SCDs, HEEL SUPPORTS, ICE PACK IN PLACE. PT RESTING IN BED, EATING CRACKERS. NO OTHER NEEDS. CALL LIGHT IN REACH.
--- NOTE | 2020-12-27 22:50 | NUR ---
SCHEDULED MEDS PROVIDED. CPOX 96% ON 2L NC. PT SPO2 DROPS INTO THE 80s WITH SLEEP SO SHE IS WEARING THE NC. NO OTHER NEEDS AT THIS TIME. CALL LIGHT IN REACH.
--- NOTE | 2020-12-27 23:00 | NUR ---
IN TO PROVIDE ICE PACK AND JELLO
--- NOTE | 2020-12-27 23:42 | NUR ---
PT RESTING IN BED, EYES CLOSED. NC @ 2L, CPOX 97%. CALL LIGHT IN REACH.
--- NOTE | 2020-12-28 01:45 | NUR ---
PT REPORTS 8/10 R HIP PAIN, PAIN MED PROVIDED. PT REPOSITIONED, ICE PACK PROVIDED. ICE WATER PROVIDED. PT REPORTS FLATUS. VS AND I&O COMPLETED. NO OTHER NEEDS AT THIS TIME. CALL LIGHT REACH.
--- NOTE | 2020-12-28 02:15 | NUR ---
PT ASSISTED ONTO BEDPAN
--- NOTE | 2020-12-28 03:30 | NUR ---
ASSESSMENT COMPLETED. GCS 15, A&O X4. LUNGS CLEAR, HEART TONES REGULAR. ABD SOFT, NONTENDER, BOWEL TONES ACTIVE, PT REPORTS FLATUS. RIGHT HIP DRESSING UNCHANGED FROM START OF SHIFT WITH SMALL AMOUNTS OF SHADOWING AND GENERALIZED EDEMA. PT REPORTS CHRONIC LEFT HAND NUMBNESS AND TINGLING. CMS INTACT IN ALL OTHER EXTREMITIES. NO OTHER NEEDS AT THIS TIME.CALL LIGHT IN REACH.
--- NOTE | 2020-12-28 04:03 | NUR ---
PT REPORTS LOWER RIGHT LEG PAIN. SCD SND JIMMY HOSE REMOVED. 2+ EDEMA, NO REDNESS, NO WARM AREAS. PT STATES PAIN IS "ALL OVER" THE LOWER LEG. PRN PAIN MED PROVIDED. ICE WATER PROVIDED. NO OTHER NEEDS. CALL LIGHT IN REACH.
--- NOTE | 2020-12-28 05:30 | NUR ---
PATIENT IS AND OS AND VITALS CHARTED. PATIENT ROOM TIDIED, TRASH EMPTIED, FRESH ICE WATER PROVIDED. NO OTHER IMMEDIATE NEEDS AT THIS TIME.
--- NOTE | 2020-12-28 05:46 | NUR ---
SCHEDULED MEDS PROVIDED. FULLER WNL. IV WNL. RLE PAIN DECREASED TO 5/10 AND OCCASSIONAL. NO REDNESS OR WARMTH, JIMMY HOSE AND SCD REPLACED. RIGHT HIP DRESSING WNL. NO OTHER NEEDS , CALL LIGHT IN REACH.
--- NOTE | 2020-12-28 07:45 | NUR ---
REPORT RECEIVED FROM NIGHT RN AND PT. CARE RESUMED. PT. IS ALERT AND ORIENTED TO ALL. SHE REPORTS LOWER RIGHT LEG PAIN THAT IS ACHING. [place] ADMIN BY CHARGE. +1 EDEMA PRESENT BLE AND RIGHT THIGH. PT. STATES EDEMA IS CHRONIC IN BLE. IV SITE WNL AND FLUSHES WELL. RT HIP ACTICOAT DRESSING HAS A SMALL AMOUNT OF RED SHADOWING BUT IS DRY AND INTACT. PT. TAKEN OFF 02 AND NOW ON RA. O2 SAT IS 90% AND CPOX IN PLACE. DISCUSSED POC AND SAFETY. PT DENIES NAUSEA AFTER BREAKFAST. LEFT RESTING WITH CALL LIGHT IN REACH.
--- NOTE | 2020-12-28 12:09 | NUR ---
RT. HIP ACTICOAT DRESSING REMAINS UNCHANGED. EDEMA BLE UNCHANGED. PT. DENIES PAIN AT THIS TIME AND IS SEATED IN CHAIR WITH LEGS ELEVATED. ICE PACK IN PLACE. PT. TOLERATING REGULAR DIET WELL. LEFT RESTING WITH CALL LIGHT IN REACH.
--- NOTE | 2020-12-28 14:30 | NUR ---
PT. USED CALL LIGHT APPROPRIATELY FOR ASSISTANCE WITH AMBULATING TO THE COMMODE. 2PA WITH FWW. PATIENT REPORTS VERY SHARP SHOOTING PAIN IN LOWER LEG BELOW THE RIGHT KNEE WITH AMBULATION. SCHEDULED PAIN MEDS. ADMIN. PT. COULD NOT HAVE A BOWEL MOVEMENT. ASSISTED BACK TO BED. PT. GIVEN FRESH ICEPACKS AND WARM BLANKETS. RT. LEG DRESSING REMAINS UNCHANGED. DISCUSSED PAIN MANAGEMENT. PT. LEFT RESTING WITH CALL LIGHT IN REACH.
--- NOTE | 2020-12-28 16:41 | NUR ---
Jhon MARQUEZ CALLED TO CLARIFY WHETHER FULLER CATH SHOULD BE DC'D. ORDER GIVEN TO LEAVE CATH IN PLACE FOR TONIGHT.
--- NOTE | 2020-12-28 16:46 | NUR ---
ROUNDING ON PT. SHE REPORTS THAT SHE IS NO LONGER NAUSEOUS AND PAIN IS TOLERABLE AT THIS TIME. DENIED FURTHER NEEDS.
--- NOTE | 2020-12-28 19:05 | NUR ---
SHIFT REPORT RECEIVED FROM ALYCE DOUGHERTY. JAMES GARCIA IN BED, REPORTS R HIP PAIN OF 5/10, REPOSITIONED. NO OTHER NEEDS AT THIS TIME. CALL LIGHT IN REACH.
--- NOTE | 2020-12-28 21:32 | NUR ---
ASSESSMENT, VS AND I&O COMPLETED. GCS 15, A&O X4. LUNGS CLEAR, HEART TONES REGULAR. PT REPORTS NUMBNESS IN LEFT HAND AND ANTERIOR RIGHT LOWER LEG, PULSE AND MOTOR INTACT. CMS INTACT IN FEET AND RIGHT ARM. BLE EDEMA 1+, RIGHT THIGH/HIP EDEMA GENERALIZED. DRESSING WNL WITH ABOUT 20% OF DRESSING HAVING SHADOWING. IV WNL, CDI, FLUSHED WELL. ABD SOFT, NONTENDER, BOWEL TONES ACTIVE, PT REPORTS FLATUS. PT REPORTS 5/10 PAIN, ICE PACK PROVIDED. SCDs AND JIMMY HOSE ON. PT DECLINES TOWELS UNDER ANKLES. ICE WATER PROVIDED. NO OTHER NEEDS. CALL LIGHT IN REACH.
--- NOTE | 2020-12-28 23:00 | NUR ---
PT RESTING IN BED, EYES CLOSED. RR EVEN, UNLABORED. CALL LIGHT IN REACH.
--- NOTE | 2020-12-29 01:00 | NUR ---
PT RESTING IN BED, EYES CLOSED. RR EVEN, UNLABORED. CALL LIGHT IN REACH.
--- NOTE | 2020-12-29 02:40 | NUR ---
SCHEDULED MED PROVIDED. PT REPORTS 5/10 RIGHT HIP PAIN, ICE PACK PROVIDED. ASSESSMENT COMPLETED. IV WNL. ICE WATER PROVIDED. NO OTHER NEEDS AT THIS TIME. CALL LIGHT IN REACH.
--- NOTE | 2020-12-29 04:27 | NUR ---
PT RESTING INE BED, EYES CLOSED. RR EVEN, UNLABORED. CALL LIGHT IN REACH.
--- NOTE | 2020-12-29 06:04 | NUR ---
VS AND I&O COMPLETED. FULLER WNL. IV WNL. DRESSING INTACT. COFFEE AND ICE WATER PROVIDED. SCHEDULED MED PROVIDED FOR 11/26, PAIN. ICE PACK PROVIDED. NO OTHER NEEDS. CALL LIGHT IN REACH.
--- NOTE | 2020-12-29 09:00 | NUR ---
REPORT RECEIVED FROM NIGHT RN AND PT. CARE RESUMED. PT. IS UP IN THE CHAIR AND WORKING WITH P.T. SHE IS ALERT AND ORIENTED. REPORTS SHARP PAIN THROUGHOUT RIGHT LEG WITH AMBULATION. ADMIN. PRN PAIN MED. PT. DEMONSTRATES LEG EXERCISES. LUNGS CLEAR THROUGHOUT AND PT. OR ROOM AIR. RIGHT LEG DRESSING IS DRY AND INTACT WITH A SMALL AMOUNT OF SHADOWING. JIMMY HOSE IN PLACE AND SCDs OF DURING P.T. IV SITE FLUSHES WELL. DISCUSSED POC AND PAIN MANAGEMENT. PT. LEFT RESTING WITH CALL LIGHT IN REACH.
--- NOTE | 2020-12-29 15:49 | NUR ---
PT. DENIES PAIN AT THIS TIME. SHE HAD A LARGE BM, BUT LADONNA MAURER REPORTS FEELING HARDENED STOOL IN RECTUM WHILE WIPING. WILL CONTINUE TO MONITOR.
--- NOTE | 2020-12-29 17:35 | NUR ---
ROUNDING ON PT. SHE STATES HER PAIN IS TOLERABLE WHILE NOT AMBULATING AND DENIES NEED FOR PAIN MEDICATION AT THIS TIME. SHE IS RESTING IN BED AND FINISHED DINNER. DENIES NAUSEA. LEFT RESTING WITH CALL LIGHT IN REACH.
--- NOTE | 2020-12-29 19:15 | NUR ---
REPORT RECEIVED FROM OFFGOING RNALYCE.
--- NOTE | 2020-12-29 19:53 | NUR ---
PT ASSESSMENT COMPLETE. PT UTLIZES CALL LIGHT, REQUESTS BED LOPEZ. PT PLACED ON BED LOPEZ WITH 2PA. PAIN WITH MOVEMENT. PT SCREAMS OUT WHEN MOVED. DRESSING TO R HIP D/I, SMALL AMOUNT OF SHADOWING PRESENT. PT REPORTS CONTINUED NUMBNESS TO RLE AND LUE. CMS INTACT TO ALL EXTREMITIES. EDEMA PRESENT TO BLE, 1+. FULLER CATH DRAINING YELLOW URINE. PT DENIES FURTHER NEEDS AT THIS TIME. STATES SHE WILL CALL WHEN FINISHED ON THE BED LOPEZ. CALL LIGHT IN REACH.
--- NOTE | 2020-12-29 20:08 | NUR ---
PT UTILIZES CALL LIGHT. FINISHED WITH BEDPAN. 2 PA FOR BED MOBILITY. PT REPOSITIONED IN BED, PROPPED WITH PILLOWS. FULLER CATH PERFORMED. ICE PACK PROVIDED FOR R HIP. PT DENIES FURTHER NEEDS AT THIS TIME. CALL LIGHT IN REACH.
--- NOTE | 2020-12-29 21:15 | NUR ---
NURSES' ASSOCIATION EXECUTIVE DIRECTOR TO ROOM FOR SCHEDULED MED ADMINISTRATION. PT SITTING UP IN BED DRINKING DECAF COFFEE AND EATING CAKE. PT REPORTS INCREASED HIP PAIN, SCHEDULED MEDS ADMINISTERED. PT TALKATIVE. DISCUSSES SNF PLACEMENT WITH THIS NURSES' ASSOCIATION EXECUTIVE DIRECTOR. UNSURE WHICH SNF SHE WILL GO TO .DENIES FURTHER NEEDS AT THIS TIME. CALL LIGHT IN REACH.
--- NOTE | 2020-12-29 23:06 | NUR ---
PT RESTINGIN BED WITH EYES CLOSED. RESPIRATIONS EVEN AND UNLABORED. PT APPEARS TO BE SLEEPING. DOES NOT WAKE WHILE PLANT PROTECTION GUARD AT BEDSIDE. CALL LIGHT IN REACH.
--- NOTE | 2020-12-30 00:29 | NUR ---
PT RESTING IN BED WITH EYES CLOSED. DOES NOT WAKE WHILE TANK MAKER WOOD AT DOORWAY. APPEARS TO BE SLEEPING. CALL LIGHT IN REACH.
--- NOTE | 2020-12-30 01:55 | NUR ---
PT UTLIZES CALL LIGHT, REPORTS INCREASED PAIN 8/10 TO R HIP. SCHEDULED AND PRN MEDS ADMINISTERED. PT ASSESSMENT COMPLETE. PT DENIES NAUSEA OR SOB AT THIS TIME. DRESSING TO R HIP WITH SHADOWING PRESENT, UNCHANGED FROM PREVIOUS ASSESSMENT. BLE EDEMA 1+. PT CONTINUES TO REPORT TINGLING TO RLE, L HAND. UNCHANGED FROM PREVIOUS. PEDAL PULSES PALPABLE. CMS INTACT. TEDS, SCDS, HEEL PROTECTORS IN PLACE. FULLER CATH DRAINING CLEAR YELLOW URINE. IV FLUSHED, WNL. WARM BLANKET PROVIDED. PT DENIES FURTHER NEEDS AT THIS TIME. CALL LIGHT IN REACH.
--- NOTE | 2020-12-30 07:10 | NUR ---
REPORT RECIEVED FROM LADONNA ORTEGA. PT ON PHONE.
--- NOTE | 2020-12-30 09:14 | NUR ---
PATIENT TO [facility] AND THEN TO CHAIR, 2PA FWW PIVOT TRANSFER. PATIENT TOLERATED IT WELL. ZENA CARE DONE. LINENS CHANGED. AM CARE DONE. VITALS AND I&O'S CHARTED. CALL LIGHT IN REACH. NO FURTHER NEEDS AT THIS TIME.
--- NOTE | 2020-12-30 09:30 | NUR ---
SPOKE WITH PATIENT AT LENGTH FOR ASSESSMENT. PATIENT IS FAMILIAR WITH ME FROM ED VISITS. PATIENT IS UP IN CHAIR, ORIENTED. PATIENT LIVES IN HOME ALONE. HAS 2 STEPS IN FRONT AND 4 STEPS IN BACK. SHE HAS A TUB/SHOWER COMBO AND A SHOWER CHAIR. SHE HAS GRAB BARS. SHE DRIVES. SHE NORMALLY USES NO DME FOR AMBULATION. SHE WILL NEED A FWW. SHE HAS AN OLD 4WW BUT IS AWARE THAT CAN'T BE USED AFTER HIP SURGERY. SHE STATES SHE WILL NEED REHAB BEFORE RETURNING HOME. SHE HAS SPOKE WITH HER SURGEON AND IS AGREEABLE TO THIS. DISCUSSED POSSIBLE REHAB IN [facility]. HER FIRST CHOICE IS [facility] IN [place]. DISCUSSED THAT THEY ARE NOT TAKING PATIENTS AT THIS TIME. ALSO DISCUSSED THAT M-F IS NOT TAKING PATIENTS AT THIS TIME. SHE STATES TO TRY [facility]. SHE STATES SHE WOULD BE INTERESTED IN GOING TO A PLACE BY [place] WHERE HER SON SAMMIE LIVES. HE IS POA. SHE STATES HE DOESN'T WORK AND HAS ROOM FOR HER TO STAY AFTER THE REHAB IF NEEDED. DISCUSSED [email or web address] S[employer] THAT HAS A RATING SYSTEM FOR FACILITIES. SHE STATES SHE WOULD LOOK AT IT IF WE PROVIDED A PRINT OUT, BUT MOSTLY "I WOULD JUST LIKE TO STAY CLOSE TO [place] POSSIBLE". DISCUSSED HER [employer] ADVANTAGE INSURANCE THROUGH [employer] AND THAT AN AUTH WOULD BE NEEDED PRIOR TO HER GOING. SHE STATES UNDERSTANDING. PATIENT DENIES HAVING MAJOR ISSUES WITH COST OF MEDS/FOOD/UTILITIES. "SO FAR I HAVEN'T HAD TOO MANY ISSUES". SHE DOES NOT THINK SHE NEEDS RESOURCES FOR THESE. DISCUSSED I WILL SEND REFERRALS OUT TO SEE IF WE CAN SECURE A PLACE FOR REHAB.
--- NOTE | 2020-12-30 10:03 | NUR ---
PT SITTING UP IN CHAIR. CALCULUS TUTOR IN ROOM FOR THERAPY.
--- NOTE | 2020-12-30 10:03 | NUR ---
PT had visitor and did not respond to knock. Did not interrupt ongoing conversation.
--- NOTE | 2020-12-30 11:42 | NUR ---
ROUNDING ON PT AFTER FACTORY MANAGER. SHE STATED SHE NEEDS A PAIN PILL. ADMINISTERED NORCO AND TOOK THE NEXT DOSE OF TYLENOL OFF FOR THE ACETAMENIN.
--- NOTE | 2020-12-30 12:00 | NUR ---
SPOKE WITH [facility] FACILITIES, [facility], [facility], AND [facility]. ONLY [facility] HAS AVAILABILITY AT THIS TIME. DISCUSSED WITH PATIENT, SHE LOOKED OVER CMS COMPARE LIST AND SHE IS OK WITH [facility] IN [place]. ASKED IF SHE WANTED ME TO PURSUE [place] PASS TO SEE CHOICES, SHE STATES "IF I CAN GO TO [place] I JUST WANT TO STAY CLOSE TO HOME". CHART SENT TO [facility] IN [place] AND TO [facility] IN [place] PER REQUEST OF DR OLIVO OFFICE.
--- NOTE | 2020-12-30 12:57 | NUR ---
PATIENT UP TO BSC AND BACK TO CHAIR, 2PA FWW PIVOT TRANSFER. VITALS AND I&O'S CHARTED. CALL LIGHT IN REACH. NO FURTHER NEEDS AT THIS TIME. ZENA CARE WAS DONE.
--- NOTE | 2020-12-30 14:00 | NUR ---
ADMINISTERED SCHED MEDS. REMOVED FULLER WNL. PT TOLERATED WELL.
--- NOTE | 2020-12-30 14:01 | NUR ---
PT SITTING UP IN CHAIR. PLACED PILLOW UNDER KNEE FOR SUPPORT WITH ICE PACK PER PT REQUEST. ADMINISTERED SCHEDULED MEDS. PT RATES PAIN 9\10.
--- NOTE | 2020-12-30 16:00 | NUR ---
RECEIVED CALL FROM PABLO AT [facility], THEY HAVE A WAITING LIST. THEY WILL PLACE PATIENT ON LIST AND SHE WILL BE 3RD IN LINE. SHE STATES THEY DO NOT HAVE ANY PLANNED DISCHARGES WITHIN A WEEK AT THIS TIME. RECEIVED A CALL FROM SOL AT [facility]. THEY WILL ACCEPT PATIENT AND HAVE SUBMITTED FOR INSURANCE AUTHORIZATION. PATIENT UPDATED. SHE IS AGREEABLE TO [facility] STILL.
--- NOTE | 2020-12-30 17:58 | NUR ---
ASSISTED PT TO BSC AND BACK TO BED. HAD ANOTHER SMALL BOWEL MOVEMENT. PT ABLE TO SHIFT IN BED WITH MINIMAL ASSISTANCE.
--- NOTE | 2020-12-30 18:38 | NUR ---
PATIENT CALLED TO GET OFF BED LOPEZ. RN IN ROOM, PATENT VOIDED 350 mL, FIRST VOID SINCE FULLER WAS DC'D. LINENS CHANGED. BED BATH GIVEN. NEW GOWN PROVIDED. ZENA CARE DONE. CALL LIGHT IN REACH. NO FURTHER NEEDS AT THIS TIME.
--- NOTE | 2020-12-30 18:42 | NUR ---
PT MISSED BED LOPEZ. FULL BED BATH AND BEDDING CHANGE DONE WITH ASSISTANCE OF JUAN CALHOUN. PT TOLERATED WELL AND HELPED WITH ROLLING.
--- NOTE | 2020-12-30 19:07 | NUR ---
REPORT RECEIVED FROM DAY SHIFT RN. PT LYING IN BED ALERT AND ORIENTED. DENIES NEEDS THIS TIME. WHITE BOARD UPDATED. CALL LIGHT IN REACH.
--- NOTE | 2020-12-30 19:40 | NUR ---
PATIENT CALLED [facility]URSES STATION REQUESTING BR ASSISTANCE. PATIENT BED TIDIED, ROOM TIDIED, FRESH ICE WATER PROVIDED ALONG WITH FRESH ICE PACKS. VITALS AND IS AND OS CHARTED ACCORDINGLY.
--- NOTE | 2020-12-30 19:40 | NUR ---
PT CALLED, WITH ASSISTANCE OF GERM DRIER, AND THIS RN, PT UP TO BSC, MAX ASSIST OFF BED, PT ABLE TO TTWB, LEFT, EXTREMELY SLOW, FOLLOWED INSTRUCTIONS WELL. PAINFUL WITH SOME "YELPING" OUTLOUD. BACK TO BED, REPOSITIONED, ALL PERSONAL ITEMS WITHIN REACH. GERM DRIER REMAINED IN ROOM
--- NOTE | 2020-12-30 19:47 | NUR ---
PATIENT REQUESTED WARM BLANKET.
--- NOTE | 2020-12-30 19:57 | NUR ---
DR. GONZALEZ ON THE PHONE FOR UPDATE ON PT. NEW TELEPHONE ORDERS RECEIVED. VERIFIED WITH READ BACK METHOD.
--- NOTE | 2020-12-30 20:30 | NUR ---
EVENING ASSESSMENT COMPLETE. SCHEDULED MEDS ADMINISTERED PER EMAR. PT REPORTS RIGHT HIP PAIN 10/26. SCHEDULED PAIN MEDICINE ADMINISTERED. DRESSING TO RIGHT HIP DRESSING INTACT WITH OLD DRAINAGE. GENERALIZED EDEMA NOTED. PT REPORTS "SOME NUMBNESS" IN RIGHT LEG. SCD'S/TEDS/HP IN PLACE. FRESH ICE TO INCISION. ASSISTED PT TO REPOSITION IN BED. NO FURTHER NEEDS AT THIS TIME. CALL LIGHT IN REACH.
--- NOTE | 2020-12-30 23:08 | OR ---
[facility] [address], [place] [address] Signed DATE OF OPERATION: 12/27/2020 SURGEON: Zhao Singletary MD PREOPERATIVE DIAGNOSIS: Right basicervical femoral neck fracture. POSTOPERATIVE DIAGNOSIS: Right basicervical femoral neck fracture. PROCEDURE PERFORMED: Right hip ORIF. LOG DECK TENDER: Nora Olivares PA-C. Nora was present and critical for all portions of procedure. ANESTHESIA: General. BLOOD LOSS: 75 mL. IMPLANTS: Four-hole DHS with 90 mm lag screw and four 4.5 screws. BRIEF HISTORY: Robbin is an 85-year-old female who was walking on a patch of rough road during construction and caught her foot and fell landing directly on the hip. She had immediate pain and was unable to bear weight. She was transported by ambulance to the emergency department, where radiographs showed a nondisplaced basicervical neck fracture. Risks and benefits of operative treatment were discussed with her and she elected to proceed. DESCRIPTION OF PROCEDURE: Once consent was obtained, she was taken to the operating room. After adequate anesthesia, she was placed on the fracture bed. Both feet were placed in traction boots. No traction was applied, however. The hip was prepped and draped in a standard sterile fashion. Using a guide pin, we located the incision laterally, made the incision through the skin and subcutaneous tissue. The IT band was divided longitudinally. The Electronically Signed By: ZHAO SINGLETARY MD 12/30/20 2308 PATIENT NAME: ROBBIN TAYLOR OPERATIVE REPORT DATE OF : 39 REPORT #: [id number] PHYSICIAN: ZHAO SINGLETARY MD PCP: DIVINE COOPER MD REPORT IS CONFIDENTIAL AND NOT TO BE RELEASED WITHOUT AUTHORIZATION [facility] [address] [place], [place] [address] Signed vastus lateralis was then split using a Oseguera elevator and elevated off the lateral femur. The 135 degree guide was then placed on the lateral femur and aligned with the femoral neck under image intensifier guidance. The guide pin was advanced until it was in the center posterior position in the femoral head. The guide pin was then measured to a 90. Triple reamer was then used to ream over the guide pin and a 90 mm lag screw was advanced until it was well-seated in the femoral head. The 4-hole DHS was then slid over this and advanced until it was flat against the lateral femur. The four 4.5 mm screws were drilled and appropriate length screws were placed. The guide pin was removed. Final radiographs showed good position of the implant. Fracture was anatomically reduced. The wound was copiously irrigated with normal saline. The IT band was closed using #2 Stratafix, 0 Stratafix for subcutaneous tissue and radha for the skin. The wound was dressed with an Acticoat dressing. She was awakened, taken to the recovery room in satisfactory condition. All sponge, needle, and instrument counts were correct. Zhao Singletary MD BA/GRABIELL /[id number] Copies: ~ Electronically Signed By: ZHAO SINGLETARY MD 12/30/20 2308 PATIENT NAME: TAYLORROBBIN RACHEL OPERATIVE REPORT DATE OF : 39 REPORT #: [id number] PHYSICIAN: ZHAO SINGLETARY MD PCP: DIVINE COOPER MD REPORT IS CONFIDENTIAL AND NOT TO BE RELEASED WITHOUT AUTHORIZATION
--- NOTE | 2020-12-30 23:40 | NUR ---
PATIENT CALLED REQUESTING BR ASSISTANCE. PATIENT SUCCESSFULLY USED BED LOPEZ. URINE MEASURED AND CHARTED. CALL LIGHT LEFT WITHIN REACH, NO OTHER IMMEDIATE NEEDS AT THIS TIME.
--- NOTE | 2020-12-31 01:34 | NUR ---
PATIENT CALLED REQUESTING BR ASSISTANCE. PATIENT WAS PUT ON BED LOPEZ. PATIENT WAS CLEANED AND CHANGED APPROPRIATELY. FRESH ICE WATER PROVIDED, ROOM TIDIED, TRASH EMPTIED, CALL LIGHT LEFT WITHIN REACH. NO OTHER IMMEDIATE NEEDS AT THIS TIME.
--- NOTE | 2020-12-31 03:23 | NUR ---
CALL LIGHT ANSWERED. 2PA TO BED LOPEZ TO VOID. ZENA CARE DONE BY STAFF. PRN FOR PAIN ADMINISTERED PER EMAR. ASSISTED TO REPOSITION IN BED. CALL LIGHT IN REACH.
--- NOTE | 2020-12-31 05:23 | NUR ---
VSS. PT RESTING IN BED. PT REQUESTING COFFEE AND ICE WATER, PROVIDED. PT GIVEN PAPER AND PEN. PT DENIES OTHER NEEDS AT THIS TIME.
--- NOTE | 2020-12-31 06:30 | NUR ---
SCHEDULED MEDS ADMINISTERED PER EMAR. 2PA TO USE BED LOPEZ TO VOID. ZENA CARE DONE BY STAFF. ASSISTED TO REPOSITION WITH PILLOWS. SCD'S/TEDS/HP IN PLACE. PT DENIES FURTHER NEEDS. CALL LIGHT IN REACH.
--- NOTE | 2020-12-31 07:00 | NUR ---
Report received from Bonnie DOUGHERTY. Pt sitting up in bed, A+O, states has no needs or pain at this time. Call light in reach, will continue plan of care.
--- NOTE | 2020-12-31 08:35 | NUR ---
Scheduled medications administered, assessment complete. Dressing to R hip C/D/I with small amount shadowing noted, 1-2+ edema to R hip/leg noted. CMS intact. Pt requests to use bedpan for void, refuses BSC at this time, states would like to wait for physical therapy. AUTOMOTIVE DIAGNOSTIC TECHNICIAN assists, pt able to roll self well with little assistance. Call light in reach
--- NOTE | 2020-12-31 08:50 | NUR ---
Called Diana at [facility] to confirm they have accepted pt. She has not received auth from pts managed medicare and is awaiting auth. She states she will call them at 11:00 if she has not heard from them
--- NOTE | 2020-12-31 09:43 | NUR ---
PATIENT SITTING UP IN BED. VITALS AND I&O'S CHARTED. WARM WASHCLOTH GIVEN. FRESH WATER GIVEN. CALL LIGHT IN REACH. NO FURTHER NEEDS AT THIS TIME.
--- NOTE | 2020-12-31 10:35 | NUR ---
HELPED PT GET PATIENT TO CHAIR FROM BED, 2PA FWW. PATIENT THEN CALLED A FEW MINS AFTER TO GO TO BSC. TO BSC AND BACK TO CHAIR, 1PA FWW. PATIENT DID VERY WELL. ZENA CARE DONE. CALL LIGHT IN REACH. ICE PACKS PLACED. NO FURTHER NEEDS AT THIS TIME.
--- NOTE | 2020-12-31 10:40 | NUR ---
Received message from [employer], they have received auth and will pick pt up at 12:30. Called and faxed orders for SNF to Nora Villalba at Dr. Singletary office. Also requested RX hard copy if they plan on sending with pain pills.
--- NOTE | 2020-12-31 10:55 | NUR ---
Requested RN to enter covid rapid test for placement to snf on this pt.
--- NOTE | 2020-12-31 11:15 | NUR ---
both nares swabbed for covid-19 without complication. sample taken to lab.
--- NOTE | 2020-12-31 11:40 | NUR ---
Nora arrives and delivered orders and RX for [facility]. PASSR completed and faxed orders, Passr to [facility] at [facility]. Left message covid test may not be completed by the time they tow picker the pt. Received return call from [facility] and their racecar driver will bring a rapid 15 min test and swab if our covid test is not complete by transport. Chart copied and original placed at desk in manila envelope for transporter.
--- NOTE | 2020-12-31 12:09 | NUR ---
Discharge teaching provided to patient who verbalizes understanding. Pt up to BSC with 1PA and FWW, able to pivot transfer back to chair. Assisted pt with dressing, vitals taken and IV removed WNL. Pt has no needs at this time, awaiting [facility] transport wheelchair, call light in reach
--- NOTE | 2020-12-31 12:34 | NUR ---
Covid test complete, printed and taken to nurses station. Transporter from [facility] present and test placed in packet.
== END 2020-12-31 12:42 | DRG 481 ==
LOC: ED 10:39 → MS 10:41
PROVIDERS: ADMIT Specialist; ATTEND Specialist
PROC: 0QS604Z Reposition Right Upper Femur with Internal Fixation Device, Open Approach (ICD-10-PCS; principal; 2020-12-27 13:14)
DX: S72.041A Displaced fracture of base of neck of right femur, initial encounter for closed fracture (principal); I50.32 Chronic diastolic (congestive) heart failure; I48.0 Paroxysmal atrial fibrillation; Z20.822 Contact with and (suspected) exposure to COVID-19; K52.9 Noninfective gastroenteritis and colitis, unspecified; M79.602 Pain in left arm; I25.10 Atherosclerotic heart disease of native coronary artery without angina pectoris; R20.0 Anesthesia of skin; I11.0 Hypertensive heart disease with heart failure; E78.5 Hyperlipidemia, unspecified; E55.9 Vitamin D deficiency, unspecified; M85.80 Other specified disorders of bone density and structure, unspecified site; Z86.73 Personal history of transient ischemic attack (TIA), and cerebral infarction without residual deficits; Z90.49 Acquired absence of other specified parts of digestive tract; Z90.710 Acquired absence of both cervix and uterus; Z98.890 Other specified postprocedural states; Z88.8 Allergy status to other drugs, medicaments and biological substances; Z79.899 Other long term (current) drug therapy; W01.0XXA Fall on same level from slipping, tripping and stumbling without subsequent striking against object, initial encounter; Y92.512 Supermarket, store or market as the place of occurrence of the external cause
CPT/HCPCS: 01210; 70450; 71045; 72170; 73502; 73560; 73700; 80048; 80053; 85025; 85610; 86850; 86900; 86901; 93005; 93010; 96374; 96375; 96376; 97110; 97163; 97530; 99285-25; A9270; C1713; C9803; J0131; J0330; J0690; J1170; J1885; J2405; J2704; J3010; J7030; J7121; U0003

== ENCOUNTER 2021-12-25 10:16 | Emergency (ER) | payer MEDICARE ==
[~2021-12-25] VITALS: Ht 165.1 cm; Wt 87.5 kg
[~2021-12-25 10:16] MED LIST changes: +MULTI VITAMIN1 EACH PO; +NEURONTIN400 MG PO; +XARELTO20 MG PO
--- OUTSIDE RECORDS SUMMARY | 2021-12-25 10:18 | XMS ---
PreManage Notification: ROBBIN TAYLOR Security Barrel Loader And Cleaner Events No recent Security Events currently on file CRITERIA MET - Group Notification - PDMP CARE PROVIDERS DIVINE SOLITARIO [facility] 05/23/2020-Current PHONE: Unknown ALLISON ALVAREZ Internal Medicine: Pulmonary Disease 04/20/2018-Current PHONE: Unknown Lian has no Care Guidelines for this patient. Care History Medical/Surgical 07/31/2020 [facility] - PATIENT HAS AN APT WITH JOB PLACEMENT OFFICER DR BELTRE 09/04/2020. - PATIENT HAS BEEN REFERRED TO DR CONTRERAS FOR PACEMAKER. - PATIENT HAS DECLINED RECENT HOME VISIT WITH CHW AND CARDIAC PLEATING SUPERVISOR. ATTEMPTS TO RESCHEDULE HAS BEEN MADE. - PATIENT HAS AN APT WITH DR SOLITARIO ON 07/29/2020 BUT MISSED THE APT DUE TO SLEEPING- PATIENT BLAMES DROWSINESS ON MEDICATIONS. 07/19/2019 [facility] Patient has scheduled appointment with Dr. Solitario on 08/16/2019.\T\nbsp; Patient stated she was not able to get in earlier for follow up visit as PCP is booked.\T\nbsp; Sent request for 7-10 day follow up visit. 04/20/2018 [facility] - Patient is currently established with [facility]. If patient is seen in the ED during business hours. Please contact CHWs at [facility]. Care Recommendation: This patient has [...] care. E.D. VISIT COUNT (12 MO.) 2 [facility]. TOTAL 2 NOTE: Visits indicate total known visits. ED/UCC VISIT TRACKING (12 MO.) 12/25/2021 10:16 [facility] TYPE: Emergency COMPLAINT: - DIFFICULTY BREATHING, IRREGULAR HEART RATE 12/27/2020 10:40 [facility] TYPE: Emergency COMPLAINT: - FALL INPATIENT VISIT TRACKING (12 MO.) 12/27/2020 14:16 [facility] TYPE: Medical Surgical COMPLAINT: - R HIP FRACTURE DIAGNOSES: - Acquired absence of both cervix and uterus - Hyperlipidemia, unspecified - Noninfective gastroenteritis and colitis, unspecified - Pain in left arm - Supermarket, store or market as the place of occurrence of the external cause - Fall on same level from slipping, tripping and stumbling without subsequent striking against object, initial encounter - Noninfective gastroenteritis and colitis, unspecified - Allergy status to other drugs, medicaments and biological substances - Displaced fracture of base of neck of right femur, initial encounter for closed fracture - Personal history of transient ischemic attack (TIA), and cerebral infarction without residual deficits - Allergy status to other drugs, medicaments and biological substances - Other specified disorders of bone density and structure, unspecified site - Supermarket, store or market as the place of occurrence of the external cause - Vitamin D deficiency, unspecified - Hypertensive heart disease with heart failure - Other specified postprocedural states - Anesthesia of skin - Chronic diastolic (congestive) heart failure - Personal history of transient ischemic attack (TIA), and cerebral infarction without residual deficits - Hypertensive heart disease with heart failure - Paroxysmal atrial fibrillation - Chronic diastolic (congestive) heart failure - Atherosclerotic heart disease of [place] coronary artery without angina pectoris - Acquired absence of other specified parts of digestive tract - Other specified disorders of bone density and structure, unspecified site - Anesthesia of skin - Other intermediate (current) drug therapy - Atherosclerotic heart disease of [place] coronary artery without angina pectoris - Fall on same level from slipping, tripping and stumbling without subsequent striking against object, initial encounter - Hyperlipidemia, unspecified - Pain in left arm - Paroxysmal atrial fibrillation - Vitamin D deficiency, unspecified - Other intermediate card tender (current) drug therapy - Other specified postprocedural states - Acquired absence of other specified parts of digestive tract - Acquired absence of both cervix and uterus [email or web address]
--- NOTE | 2021-12-27 15:48 | EKG ---
[facility] [address] [place] [address] Signed Atrial fibrillation with premature ventricular or aberrantly conducted complexes Right axis deviation Left bundle branch block Abnormal ECG No previous ECGs available Confirmed by CLYDE BRADY MD ([id number]) on 12/27/2021 3:48:31 PM Electronically Signed By: CLYDE BRADY MD 12/27/21 1548 PATIENT NAME: ROBBIN TAYLOR Electrocardiogram DATE OF : 39 PHYSICIAN: CLYDE BRADY MD REPORT #: [id number] REPORT IS CONFIDENTIAL AND NOT TO BE RELEASED WITHOUT AUTHORIZATION
--- NOTE | 2021-12-27 15:50 | EKG ---
[facility] [address] [place] [address] Signed Atrial fibrillation with occasional ventricular-paced complexes Left axis deviation Left bundle branch block Abnormal ECG When compared with ECG of 25-DEC-2021 10:35, (Unconfirmed) Electronic ventricular pacemaker has replaced Atrial fibrillation Confirmed by CLYDE BRADY MD ([id number]) on 12/27/2021 3:49:50 PM Electronically Signed By: CLYDE BRADY MD 12/27/21 1550 PATIENT NAME: ROBBIN TAYLOR Electrocardiogram DATE OF : 39 PHYSICIAN: CLYDE BRADY MD REPORT #: [id number] REPORT IS CONFIDENTIAL AND NOT TO BE RELEASED WITHOUT AUTHORIZATION
--- NOTE | 2021-12-27 15:50 | EKG ---
[facility] [address] [place] [address] Signed Atrial-paced rhythm with premature atrial complexes Left axis deviation Left bundle branch block Abnormal ECG When compared with ECG of 25-DEC-2021 15:18, (Unconfirmed) premature atrial complexes are now present Confirmed by CLYDE BRADY MD ([id number]) on 12/27/2021 3:50:28 PM Electronically Signed By: CLYDE BRADY MD 12/27/21 1550 PATIENT NAME: ROBBIN TAYLOR Electrocardiogram DATE OF : 39 PHYSICIAN: CLYDE BRADY MD REPORT #: [id number] REPORT IS CONFIDENTIAL AND NOT TO BE RELEASED WITHOUT AUTHORIZATION
== END 2021-12-25 17:25 | disposition home or self-care (01) ==
LOC: ED 10:16
DX: I48.91 Unspecified atrial fibrillation (principal); I10 Essential (primary) hypertension; E78.5 Hyperlipidemia, unspecified; Z88.8 Allergy status to other drugs, medicaments and biological substances; Z79.899 Other long term (current) drug therapy
CPT/HCPCS: 36415; 71045; 80053; 83880; 85025; 93005; 93010; 96374; 99285-25; J1940; J2704

== ENCOUNTER 2021-12-30 12:35 | Emergency (ER) | payer MEDICARE ==
[~2021-12-30] VITALS: Ht 165.1 cm; Wt 87.5 kg
--- OUTSIDE RECORDS SUMMARY | 2021-12-30 12:38 | XMS ---
PreManage Notification: ROBBIN TAYLOR Security Quality Assurance Supervisor Body Events No recent Security Events currently on file CRITERIA MET - [facility] - 2 Visits in 30 Days - Group Notification - [facility]ARE [facility]Current PHONE: Unknown ALLISON ALVAREZ Internal Medicine: Pulmonary Disease 04/20/2018-Current PHONE: Unknown Lian has no Care Guidelines for this patient. Care History Medical/Surgical 07/31/2020 [facility] - PATIENT HAS AN APT WITH EQUIPMENT MONITOR PHOTOTYPESETTING DR BELTRE 09/04/2020. - PATIENT HAS BEEN REFERRED TO DR CONTRERAS FOR PACEMAKER. - PATIENT HAS DECLINED RECENT HOME VISIT WITH CHW AND CARDIAC SHEET METAL ERECTOR. ATTEMPTS TO RESCHEDULE HAS BEEN MADE. - PATIENT HAS AN APT WITH DR SOLITARIO ON 07/29/2020 BUT MISSED THE APT DUE TO SLEEPING- PATIENT BLAMES DROWSINESS ON MEDICATIONS. 07/19/2019 [facility] Patient has scheduled appointment with Dr. Solitario on 08/16/2019.\T\nbsp; Patient stated she was not able to get in earlier for follow up visit as PCP is booked.\T\nbsp; Sent request for 7-10 day follow up visit. 04/20/2018 [facility] - Patient is currently established with [facility]. If patient is seen in the ED during business hours. Please contact CHWs at [facility]. Care Recommendation: This patient has had [...] care. E.D. VISIT COUNT ([address] MO[address] [facility]. TOTAL 2 NOTE: Visits indicate total known visits. ED/UCC VISIT TRACKING (12 MO.) 12/30/2021 12:36 [facility] TYPE: Emergency COMPLAINT: - SOB 12/25/2021 10:16 [facility] TYPE: Emergency COMPLAINT: - DIFFICULTY BREATHING, IRREGULAR HEART RATE DIAGNOSES: - Allergy status to other drugs, medicaments and biological substances - Other alf (current) drug therapy - Unspecified atrial fibrillation - Palpitations - Essential (primary) hypertension - Hyperlipidemia, unspecified INPATIENT VISIT TRACKING (12 MO.) No inpatient visits to display in this time frame [email or web address]
[2021-12-30] MEDS ORDERED: TORSEMIDE10 MG PO (12:48)
== END 2021-12-30 17:18 | disposition home or self-care (01) ==
LOC: ED 12:35
DX: I11.0 Hypertensive heart disease with heart failure (principal); I50.9 Heart failure, unspecified; R06.00 Dyspnea, unspecified; E78.5 Hyperlipidemia, unspecified; I48.91 Unspecified atrial fibrillation; Z88.8 Allergy status to other drugs, medicaments and biological substances; Z79.899 Other long term (current) drug therapy
CPT/HCPCS: 36415; 80053; 83735; 83880; 84484; 85025; 99285-25

== ENCOUNTER 2023-12-07 08:49 | Emergency (ER) | payer MEDICARE ==
[~2023-12-07] VITALS: Ht 165.1 cm; Wt 74.2 kg
[2023-12-07] MEDS ORDERED: VALACYCLOVIR500 MG PO (08:58)
[2023-12-07] MEDS ORDERED: METOPROLOL SUCC25 MG PO (08:59)
[2023-12-07 09:23] LABS: BASOPHILS 0.9 % (0-2); EOSINOPHILS 0.8 % (0-6); HEMATOCRIT 47.8 % (35.0-50.0); HEMOGLOBIN 15.6 g/dL (12.0-18.0); LYMPHOCYTES 18.2 % (24-44); MCH 29.7 (27-36); MCHC 32.7 g/dl (30-36); MCV 90.6 fl (81-99); NEUTROPHILS 71.1 % (39-80); PLATELET COUNT 228 K/uL (140-440); RBC 5.27 M/ul (4.3-5.7); RDW 13.7 (10.5-15.0)
[2023-12-07 09:39] LABS: ALBUMIN 4.2 g/dL (3.4-5.0); ALBUMIN/GLOBULIN RATIO 1.24 (1.1-2.4); ANION GAP 17.9 (7-21); BILIRUBIN, TOTAL 0.9 ng/dL (0.2-1.0); BUN/CREATININE RATIO 30.23 (6.0-28.6); CALCIUM 10.6 mg/dL (8.5-10.1); CREATININE, SERUM 0.86 mg/dL (0.55-1.02); POTASSIUM 3.9 mmol/L (3.5-5.1); PROTEIN, TOTAL 7.6 g/dL (6.4-8.2)
[2023-12-07] MEDS ORDERED: SODIUM CHLORIDE 0.9% 500 ML IV ONE (10:00)
[2023-12-07] MEDS ORDERED: MECLIZINE HCL25 MG PO (11:18)
[2023-12-07 11:34] VITALS: BP 140/61
--- NOTE | 2023-12-07 12:58 | EKG ---
[facility] [address] [place] [address] Signed Atrial-paced rhythm Left axis deviation Left bundle branch block Abnormal ECG When compared with ECG of 25-DEC-2021 15:19, premature atrial complexes are no longer present Confirmed by Malou Tucker ([id number]) on 12/07/2023 12:58:40 PM Electronically Signed By: MALOU TUCKER MD 12/07/23 1258 PATIENT NAME: TAYLORROBBINMICHAEL RAMOS Electrocardiogram DATE OF : 39 PHYSICIAN: MALOU TUCKER MD REPORT #: [id number] REPORT IS CONFIDENTIAL AND NOT TO BE RELEASED WITHOUT AUTHORIZATION
== END 2023-12-07 11:35 | disposition home or self-care (01) ==
LOC: ED 08:49
PROVIDERS: Emergency Medicine
DX: R42 Dizziness and giddiness (principal); I10 Essential (primary) hypertension; R73.03 Prediabetes; E78.5 Hyperlipidemia, unspecified; I48.91 Unspecified atrial fibrillation; Z95.0 Presence of cardiac pacemaker; Z88.1 Allergy status to other antibiotic agents; Z88.8 Allergy status to other drugs, medicaments and biological substances; Z79.899 Other long term (current) drug therapy
CPT/HCPCS: 36415; 70496; 70498; 71045; 80053; 84484; 85025; 93005; 93010; 99284-25; J7040; Q9967

== ENCOUNTER 2024-05-23 10:11 | Emergency (ER) | payer MEDICARE ==
[~2024-05-23] VITALS: Ht 165.1 cm; Wt 74.4 kg
[2024-05-23 10:34] LABS: BASOPHILS 0.8 % (0-2); EOSINOPHILS 1.4 % (0-6); HEMOGLOBIN 14.8 g/dL (12.0-18.0); LYMPHOCYTES 21.4 % (24-44); MCH 30.4 (27-36); MCHC 33.5 g/dl (30-36); MCV 90.8 fl (81-99); MONOCYTES 7.6 % (0-12); NEUTROPHILS 68.8 % (39-80); PLATELET COUNT 221 K/uL (140-440); RBC 4.85 M/ul (4.3-5.7); RDW 14.3 (10.5-15.0)
[2024-05-23 10:56] LABS: ALBUMIN 4.1 g/dL (3.4-5.0); ALBUMIN/GLOBULIN RATIO 1.24 (1.1-2.4); ANION GAP 15.3 (7-21); BILIRUBIN, TOTAL 0.7 ng/dL (0.2-1.0); BUN/CREATININE RATIO 27.9 (6.0-28.6); CALCIUM 10.3 mg/dL (8.5-10.1); CREATININE, SERUM 0.86 mg/dL (0.55-1.02); POTASSIUM 4.3 mmol/L (3.5-5.1); PROTEIN, TOTAL 7.4 g/dL (6.4-8.2)
[2024-05-23] MEDS ORDERED: ETOMIDATE 40 MG/20 ML VIAL IV ONE ×2 (13:15)
[2024-05-23] MEDS ORDERED: SODIUM CHLORIDE 0.9% 1,000 ML IV PRN (13:30)
[2024-05-23 14:55] VITALS: BP 135/59
[2024-05-24 08:54] LABS: CALCIUM IONIZED PH 7.4 1.33 mmol/L (1.09-1.30); CALCIUM,IONIZED SERUM 1.33 mmol/L (1.09-1.30)
== END 2024-05-23 14:30 | disposition home or self-care (01) ==
LOC: ED 10:11
PROVIDERS: Emergency Medicine
DX: I48.91 Unspecified atrial fibrillation (principal); I10 Essential (primary) hypertension; E78.5 Hyperlipidemia, unspecified; R73.03 Prediabetes; H91.8X9 Other specified hearing loss, unspecified ear; Z95.0 Presence of cardiac pacemaker; Z86.73 Personal history of transient ischemic attack (TIA), and cerebral infarction without residual deficits; Z88.1 Allergy status to other antibiotic agents; Z79.01 Long term (current) use of anticoagulants; Z79.899 Other long term (current) drug therapy
CPT/HCPCS: 36415; 71045; 80053; 83735; 83880; 84484; 85025; 92960; 93005; 93010; 94799; 99285-25; J7030

== ENCOUNTER 2024-12-22 19:20 | Emergency (ER) | payer MEDICARE ==
[~2024-12-22] VITALS: Ht 165.1 cm; Wt 78.0 kg
[~2024-12-22 19:20] MED LIST changes: +MECLIZINE HCL25 MG PO; +METOPROLOL SUCC25 MG PO; +TOPROL XL50 MG PO; +VALACYCLOVIR500 MG PO
[2024-12-22 20:12] LABS: BASOPHILS 0.6 % (0.1-1.2); EOSINOPHILS 1.0 % (0.7-5.8); LYMPHOCYTES 21.0 % (19.3-51.7); MCH 25.2 PG (25.6-32.2); MCHC 30.5 g/dL (32.2-35.5); MCV 82.4 fL (79.4-94.8); MONOCYTES 7.5 % (4.7-12.5); NEUTROPHILS 69.6 % (34.0-71.1); RBC 4.77 M/uL (3.93-5.22)
[2024-12-22 20:28] LABS: ALT (SGPT) 50.0 U/L (14-59); AST (SGOT) 41.0 U/L (15-37); GLOMERULAR FILTRATION RATE,EST 59.0 mL/min (>60); PROTEIN, TOTAL 7.0 g/dL (6.4-8.2); UREA NITROGEN 21.0 mg/dL (7-18)
[2024-12-22] MEDS ORDERED: FUROSEMIDE 40 MG/4 ML VIAL IV ONE (20:45)
[2024-12-22 21:42] VITALS: BP 135/100
[2024-12-22] MEDS ORDERED: LASIX40 MG PO (21:42)
== END 2024-12-22 22:22 | disposition home or self-care (01) ==
LOC: ED 19:20
PROVIDERS: Family Medicine
DX: I11.0 Hypertensive heart disease with heart failure (principal); I50.9 Heart failure, unspecified; Z86.73 Personal history of transient ischemic attack (TIA), and cerebral infarction without residual deficits; Z95.0 Presence of cardiac pacemaker; Z88.8 Allergy status to other drugs, medicaments and biological substances; Z79.899 Other long term (current) drug therapy; Z79.02 Long term (current) use of antithrombotics/antiplatelets
CPT/HCPCS: 36415; 71045; 80053; 83880; 85025; 96374; 99285-25; J1938

== ENCOUNTER 2025-02-01 11:32 | Emergency (ER) | payer MEDICARE ==
[~2025-02-01] VITALS: Ht 165.1 cm; Wt 81.6 kg
[~2025-02-01 11:32] MED LIST changes: +LASIX40 MG PO
[2025-02-01 12:09] LABS: BASOPHILS 0.6 % (0.1-1.2); EOSINOPHILS 0.5 % (0.7-5.8); LYMPHOCYTES 15.9 % (19.3-51.7); MCH 22.7 PG (25.6-32.2); MCHC 29.6 g/dL (32.2-35.5); MCV 76.6 fL (79.4-94.8); MONOCYTES 8.5 % (4.7-12.5); NEUTROPHILS 74.1 % (34.0-71.1); RBC 5.56 M/uL (3.93-5.22)
[2025-02-01 12:31] LABS: GLOMERULAR FILTRATION RATE,EST 50.0 mL/min (>60); UREA NITROGEN 17.0 mg/dL (7-18)
[2025-02-01] MEDS ORDERED: ONDANSETRON 4 MG TAB ODT SL ONE (13:00)
--- NOTE | 2025-02-01 13:52 | EKG ---
[facility] [address] [place], [place] [address] Signed Atrial fibrillation Nonspecific intraventricular block Possible Lateral infarct , age undetermined Abnormal ECG Confirmed by WILBERTO HARRINGTON MD ([id number]) on 02/01/2025 1:51:55 PM Electronically Signed By: WILBERTO HARRINGTON 02/01/25 1352 PATIENT NAME: ROBBIN OJEDA Electrocardiogram DATE OF : 39 PHYSICIAN: WILBERTO HARRINGTON REPORT #: [id number] REPORT IS CONFIDENTIAL AND NOT TO BE RELEASED WITHOUT AUTHORIZATION
[2025-02-01] MEDS ORDERED: REGLAN10 MG PO (13:54)
[2025-02-01] MEDS ORDERED: OMEPRAZOLE20 MG PO (13:54)
[2025-02-01 14:25] VITALS: BP 122/79
== END 2025-02-01 14:20 | disposition home or self-care (01) ==
LOC: ED 11:32
PROVIDERS: Emergency Medicine
DX: R60.0 Localized edema (principal); I10 Essential (primary) hypertension; R73.03 Prediabetes; E78.5 Hyperlipidemia, unspecified; Z88.8 Allergy status to other drugs, medicaments and biological substances; Z79.01 Long term (current) use of anticoagulants; Z79.899 Other long term (current) drug therapy
CPT/HCPCS: 36415; 71045; 80048; 83880; 85025; 93005; 93010; 99284-25; A9270

== ENCOUNTER 2025-02-22 11:30 | Inpatient (IN) | payer MEDICARE ==
[~2025-02-22] VITALS: Ht 165.1 cm; Wt 84.2 kg
[~2025-02-22 11:30] MED LIST changes: +OMEPRAZOLE20 MG PO; +REGLAN10 MG PO
[2025-02-22] MEDS ORDERED: FAMOTIDINE40 MG PO (11:53)
[2025-02-22] MEDS ORDERED: FARXIGA10 MG PO (11:53)
[2025-02-22 12:22] LABS: BASOPHILS 0.9 % (0.1-1.2); EOSINOPHILS 0.3 % (0.7-5.8); LYMPHOCYTES 14.2 % (19.3-51.7); MCH 21.5 PG (25.6-32.2); MCHC 29.3 g/dL (32.2-35.5); MCV 73.2 fL (79.4-94.8); MONOCYTES 7.5 % (4.7-12.5); NEUTROPHILS 76.8 % (34.0-71.1); RBC 5.68 M/uL (3.93-5.22)
[2025-02-22 12:44] LABS: ALT (SGPT) 40.0 U/L (14-59); AST (SGOT) 41.0 U/L (15-37); GLOMERULAR FILTRATION RATE,EST 47.0 mL/min (>60); PROTEIN, TOTAL 6.5 g/dL (6.4-8.2); UREA NITROGEN 26.0 mg/dL (7-18)
[2025-02-22] MEDS ORDERED: ONDANSETRON 4 MG TAB ODT SL ONE (13:15)
[2025-02-22] MEDS ORDERED: ACETAMINOPHEN 325 MG TAB PO PRN (14:00)
[2025-02-22] MEDS ORDERED: FUROSEMIDE40 MG PO (14:14)
[2025-02-22] MEDS ORDERED: FUROSEMIDE 40 MG/4 ML VIAL IV SCH (14:15)
[2025-02-22] MEDS ORDERED: FARXIGA5 MG PO (14:20)
[2025-02-22 14:52] VITALS: BP 160/81
--- NOTE | 2025-02-22 15:20 | NUR ---
ASSISTED PT IN ORDERING DINNER, REPOSITIONED WITH PILLOW UNDER KNEES. NO OTHER NEEDS AT THIS TIME, CALL LIGHT WITHIN REACH.
--- NOTE | 2025-02-22 15:52 | NUR ---
In with pt in response to call light to use the bathroom. Pt states her legs were just wrapped today by [facility]. Pt states she normally gets around at home with her FWW independently. No-slip socks applied to both feet. SBA as pt transfers from bed to BSC with FWW to void. Pt tolerated well, and call light placed in reach. Instructed pt on how to use the call light to let us know when she is finished. Reminded pt not to get up until we are present to assist her. Pt verbalized understanding.
--- NOTE | 2025-02-22 16:40 | NUR ---
PT UP TO BATHROOM WITH FWW AND SBA, PT BACK TO BED, NO NEEDS AT THIS TIME, CALL LIGHT WITHIN REACH.
[2025-02-22] MEDS ORDERED: SPIRONOLACTONE25 MG PO (17:14)
--- NOTE | 2025-02-22 17:14 | NUR ---
MED REC COMPLETE
[2025-02-22 17:56] VITALS: BP 105/80
--- NOTE | 2025-02-22 17:56 | NUR ---
PATIENT REQUESTING GABAPENTIN WITH HER NIGHT MEDICATIONS DUE TO HER "TAKING 400MG AT NIGHT EVERY NIGHT FOR MY PAIN AND SLEEP". PATIENT ALSO REPORTS CHRONIC NUMBNESS AND TINGLING. DR GAN NOTIFIED AND STATES HE WILL ADD ORDER. WITH NO FURTHER ORDERS AT THIS TIME. CALL ENDED.
--- NOTE | 2025-02-22 17:57 | NUR ---
PATIENT IN BED AT THIS TIME. MAIL TECHNICIAN CHARTED VITALS AND I&O'S. CALL LIGHT WITHIN REACH, NO FURTHER NEEDS.
[2025-02-22 18:16] VITALS: BP 105/80
--- NOTE | 2025-02-22 19:24 | NUR ---
REPORT RECEIVED FROM LADONNA HARMON AND LADONNA CARO. PT LAYING IN BED, ASLEEP. RESPIRATIONS EVEN AND UNLABORED. NO APPARENT NEEDS NOTED AT THIS TIME.
[2025-02-22 20:21] VITALS: BP 115/61
--- NOTE | 2025-02-22 20:26 | NUR ---
PT BOOSTED IN BED WITH HELP OF RT. PERIPHERAL VASCULAR TECH OBTAINED VITALS AND I&O. PT STATES NO FURTHER NEEDS AT THIS TIME. CALL LIGHT WITHIN REACH.
[2025-02-22] MEDS ORDERED: GABAPENTIN 400 MG CAP PO SCH (21:00)
[2025-02-22] MEDS ORDERED: AMIODARONE HCL 200 MG TAB PO SCH (21:00)
[2025-02-22 21:49] VITALS: BP 115/67
--- NOTE | 2025-02-22 23:45 | NUR ---
PT SITTING ON THE RECLINER, C/O 10/10 BACK PAIN, TYLENOL GIVEN ORDERED. HELPED REPOSITIONED PT, ICE PACK APPLIED PER PT REQUEST. CHAIR ALARM ON. ENCOURAGED PT TO CALL IF SHE NEEDS TO USE THE BATHROOM. CALL LIGHT WITHIN REACH.
[2025-02-23] VITALS (10 sets, daily range): BP systolic 98–144; BP diastolic 58–77
--- NOTE | 2025-02-23 00:12 | NUR ---
CALL LIGHT ANSWERED. PT NEEDED TO USE BATHROOM. BRASSWIND INSTRUMENT REPAIRER SBA WITH FWW TO BATHROOM. PT VOIDED AND WASHED HANDS. PT ASSISTED BACK TO CHAIR WITH CHAIR ALARM ON. NO FURTHER NEEDS STATED AT THIS TIME. CALL LIGHT WITHIN REACH.
--- NOTE | 2025-02-23 01:25 | NUR ---
bed alarm going off, pt restless and reports feeling uncomfortable. recently medicated per michael womack, pt up to stand with walker and stretched back. back in bed, pillow under right side, pt states, "oh that feels a lot better". bed alarm resumed and call light in reach.
--- NOTE | 2025-02-23 01:44 | NUR ---
VETERINARY ANATOMIST OBTAINED VITALS AND I&O. PT STATES NO NEEDS AT THIS TIME. CALL LIGHT WITHIN REACH AND BED ALARM ON.
--- NOTE | 2025-02-23 02:27 | NUR ---
PT LAYING IN BED ASLEEP. RESPIRATIONS EVEN AND UNLABORED. NO APPARENT NEEDS NOTED AT THIS TIME. CALL LIGHT WITHIN REACH.
--- NOTE | 2025-02-23 03:46 | NUR ---
ROBBIN BEGAN THE EVENING WEARING A HOSPITAL OWNED CPAP. AFTER 0100, SHE AWOKE AND DECIDED THAT SHE DID NOT LIKE THE FULL FACE MASK COVERING HER NOSE AND MOUTH AND WANTED THE CPAP OFF.
--- NOTE | 2025-02-23 04:36 | NUR ---
PT AMBULATED TO THE BATHROOM AND BACK WITH FWW 1PA TOLERATED WELL. PT LAYING IN BED WATCHING TV, RESPIRATIONS UNLABORED. NO APPARENT NEEDS NOTED AT THIS TIME. CALL LIGHT IN REACH.
[2025-02-23 05:25] LABS: BASOPHILS 0.8 % (0.1-1.2); EOSINOPHILS 0.6 % (0.7-5.8); LYMPHOCYTES 23.7 % (19.3-51.7); MCH 21.6 PG (25.6-32.2); MCHC 30.0 g/dL (32.2-35.5); MCV 71.9 fL (79.4-94.8); MONOCYTES 9.8 % (4.7-12.5); NEUTROPHILS 64.8 % (34.0-71.1); RBC 5.24 M/uL (3.93-5.22)
--- NOTE | 2025-02-23 05:36 | NUR ---
BED ALARM ANSWERED. PT STATED SHE WANTED TO SIT IN THE CHAIR. PHLEBOTOMIST MEDICAL LAB ASSISTANT SBA WITH FWW TO CHAIR. PT STATES NO FURTHER NEEDS AT THIS TIME. CALL LIGHT WITHIN REACH AND CHAIR ALARM ON.
[2025-02-23 05:39] LABS: ALT (SGPT) 53.0 U/L (14-59); AST (SGOT) 47.0 U/L (15-37); GLOMERULAR FILTRATION RATE,EST 47.0 mL/min (>60); PHOSPHORUS, INORGANIC 3.2 mg/dL (2.5-4.9); PROTEIN, TOTAL 5.5 g/dL (6.4-8.2); UREA NITROGEN 26.0 mg/dL (7-18)
--- NOTE | 2025-02-23 06:46 | NUR ---
PT RESTING IN THE CHAIR. RESPIRATIONS EVEN AND UNLABORED, SPO2 AT 97% ON RA. PT'S WEIGHT IS 84.1 KG THIS MORNING. AMBULATED TO THE BATHROOM WITH FWW 1PA TOLERATED WELL. DENIES SOB. DENIES NEEDS AT THE MOMENT. CALL LIGHT IN REACH.
--- NOTE | 2025-02-23 07:10 | NUR ---
REPORT RECEIVED FROM ANGELICA DOUGHERTY. PT ALERT AND AWAKE, CALL LIGHT WITHIN REACH.
[2025-02-23] MEDS ORDERED: METOPROLOL SUCCINATE 25 MG TABCR PO SCH (09:00)
[2025-02-23] MEDS ORDERED: EMPAGLIFLOZIN 25 MG TAB PO SCH (09:00)
[2025-02-23] MEDS ORDERED: SPIRONOLACTONE 25 MG TAB PO SCH (09:00)
[2025-02-23] MEDS ORDERED: PANTOPRAZOLE SODIUM 40 MG TABEC PO SCH (09:00)
--- NOTE | 2025-02-23 09:00 | NUR ---
INTO SEE PATIENT. PERSONAL HEALTH INFORMATION REVIEWED. PATIENT LIVES ALONE. HAS A FRIEND THAT HELPS HER A COUPLE TIMES A WEEK. SHE HAS TWO SONS ONE LIVES IN [place] AND THE OTHER LIVES IN [place]. PATIENT HAS STEPS INTO HER HOUSE AND RECENTLY HAD RAILING. CANE AND WALKER AT BASELINE. HAS CPAP THROUGH [facility]. DOES DRIVE BUT RARELY. FRIEND DRIVES HER MOSTLY. DENIES ANY DIFFCULTY PAYING UTLITIES OR OBTAINING FOOD. PT WORKED WITH PATIENT AND RECCOMENDING SNF. PATIENT AGREEABLE TO SNF. PATIENT CHOICE LETTER GIVEN. PATIENT REALLY WANTS TO STAY IN TOWN AND GO TO [facility]. CHART FAXED TO [facility]. PENDING ACCEPTANCE TO [facility].
--- NOTE | 2025-02-23 09:00 | NUR ---
PT AMBULATED TO RESTROOM WITH 1 PA FWW, VOIDED AND DID AM CARE. PT TOLERATED WELL, DENIED ANY SOB. PT BACK TO BED WITH LEGS ELEVATED AND CALL LIGHT WITHIN REACH. CASE MANAGEMENT IN TO SEE PT.
--- NOTE | 2025-02-23 10:49 | NUR ---
PATIENT WORKED WITH PT WITH ASSISTANCE FROM THIS MULTIMEDIA SERVICES COORDINATOR. PATIENT IS CURRENTLY SITTING UP IN THE WHEELCHAIR WITH THE BRAKES LOCKED AND CHAIR ALARM SET. LADONNA DOUGHERTY NOTIFIED AND UPDATED. CALL LIGHT AND PERSONAL ITEMS ARE WITHIN REACH. A HEAT PACK WAS PROVIDED FOR THEIR LOWER BACK. MO OTHER CARES WERE REQUESTED.
[2025-02-23] MEDS ORDERED: PHARMACY RENAL DOSE ADJUSTMENT 1 DOSE MISC PO SCH (12:00)
--- NOTE | 2025-02-23 13:09 | NUR ---
PT NOTES FAXED TO [facility].
--- NOTE | 2025-02-23 13:24 | NUR ---
Patient awake, alert and oriented x3, no acute distress. Patient reports 5/10 low back pain, admin tylenol 650mg po at this time. Patient encouraged to elevate her legs as much as possible, pt receptive. Patient reports shortness of breath has improved, sp02 96% on room air.
[2025-02-23] MEDS ORDERED: PROCHLORPERAZINE EDISYLATE 10 MG/2 ML VIAL IV PRN (13:45)
[2025-02-23] MEDS ORDERED: POTASSIUM CHLORIDE 10 MEQ TABCR PO ONE (13:45)
--- NOTE | 2025-02-23 15:01 | NUR ---
Patient receiving a bed bath with cooker chip. Will come back to admin her ordered kcl.
--- NOTE | 2025-02-23 15:11 | NUR ---
BEDBATH COMPLETE. UNDERWEAR, GOWN, AND BED LINENS CHANGED. PATIENT IS NOW SITTING UP IN THE RECLINER WITH CALL LIGHT AND PERSONAL ITEMS ARE WITHIN REACH. LADONNA MAURER ENTERED THE ROOM.
--- NOTE | 2025-02-23 16:22 | NUR ---
UR CLINICAL REVIEW: 2 MN FOR VERSALUS-PER INK TECHNICIAN MEETS INPT FOR CHF WITH NEED FOR SERIAL LABS, MONITORING AND DAILY WEIGHTS [facility] INPT 02/22/25 @ 8403 ORDER MATCHES REG CLINICALS FAXED TO [facility] FOR AUTH REVIEW DISCHARGE TO SNF WHEN STABLE
--- NOTE | 2025-02-23 19:30 | NUR ---
RECEIVED REPORT FROM LADONNA MAURER. PT ASLEEP ON LEFT SIDE. CPOX IN PLACE. CALL LIGHT WITHIN REACH.
--- NOTE | 2025-02-23 20:02 | NUR ---
ROBBIN IS ON ROOM AIR. SHE DOES NOT WANT TO WEAR THE CPAP AT THIS TIME BUT WOULD LIKE IT LEFT IN THE ROOM JUST IN CASE SHE CHANGES HER MIND.
--- NOTE | 2025-02-23 21:11 | EKG ---
[facility] [address] [address] [place] [address] Signed Atrial fibrillation Left axis deviation Left bundle branch block Abnormal ECG When compared with ECG of 01-FEB-2025 11:55, Left bundle branch block is now present Confirmed by Terrence Gan MD () on 02/23/2025 9:11:44 PM Electronically Signed By: TERRENCE GAN MD 02/23/252110 PATIENT NAME: ROBBIN OJEDA Electrocardiogram DATE OF : 39 PHYSICIAN: TERRENCE GAN MD REPORT #: [id number] REPORT IS CONFIDENTIAL AND NOT TO BE RELEASED WITHOUT AUTHORIZATION
--- NOTE | 2025-02-23 21:17 | NUR ---
DR. GAN NOTIFIED OF HS PACERONE BEING HELD.
--- NOTE | 2025-02-23 21:55 | NUR ---
bed alarm going off, pt reports needing to possibly go to the bathroom. pt up 1pa with fww to bathroom, no bm. pt did void 100mls. pt back in bed, educated to use call light before getting oob and to wait for staff. pt verbalized understanding. call light in reach. bed alarm on.
--- NOTE | 2025-02-23 22:44 | NUR ---
PT UP IN ROOM UNASSISTED, PT REPORTS BEING DISORIENTED TO SURROUNDINGS. PT ASSISTED TO BR, SBA W/ FWW. PT IS ORIENTED X 3, NOT TO SURROUNDINGS. DENIES PAIN. LSC DIM TO BASES. DENIES SOB, REPORTS CAPPS AFTER AMBULATION TO BR. CPOX IN PLACE, RA. HRIR. TELEMETRY IN PLACE. 3+ EDEMA TO BLE, PT HAS COMPRESSION WRAPS TO BLE. BLE ELEVATED. BTA, LBM TODAY. VOIDS WNL. BASELINE NEUROPATHY TO BLE. SL RAC WNL. LARGE BRUISING TO NECK AREA. CAP REFILL TO BLE > 3 SECS. CALL LIGHT WITHIN REACH. BED ALARM PLACED FOR SAFETY.
--- NOTE | 2025-02-23 23:00 | NUR ---
LADONNA HARMON TOOK PT TO BR. HEAT PAD GIVEN FOR C/O BACK ACHE.
[2025-02-24] VITALS (11 sets, daily range): BP systolic 103–144; BP diastolic 54–83
--- NOTE | 2025-02-24 00:10 | NUR ---
PT MEDICATED W/ PRN TYLENOL FOR 10/10 BACK PAIN. ASSISTED PT TO BR, VOIDS WNL. PT UP IN RECLINER CURRENTLY, CHAIR ALARM IN PLACE. CALL LIGHT WITHIN REACH.
--- NOTE | 2025-02-24 01:01 | NUR ---
CALL LIGHT ANSWERED. PT NEEDED TO GO TO THE BATHROOM AND WAS READY TO GET BACK INTO BED. RECRUITMENT DIRECTOR SBA WITH FWW TO BATHROOM. PT VOIDED AND WASHED HANDS. PT THEN ASSISTED TO BED. VITALS AND I&O OBTAINED. PT STATES NO FURTHER NEEDS AT THIS TIME. CALL LIGHT WITHIN REACH AND BED ALARM OPN.
--- NOTE | 2025-02-24 01:08 | NUR ---
PT ASLEEP, APPEARS COMFORTABLE.
--- NOTE | 2025-02-24 02:48 | NUR ---
PT ASLEEP, APPEARS COMFORTABLE.
--- NOTE | 2025-02-24 05:22 | NUR ---
CALL LIGHT ANSWERED. PT NEEDED TO USE BATHROOM. BAKERY CLERK SBA WITH FWW TO BATHROOM. PT VOIDED AND ASSISTED BACK TO BED. VITALS AND I&O OBTAINED. PT STATES NO FURTHER NEEDS AT THIS TIME. CALL LIGHT WITHIN REACH AND BED ALARM ON.
[2025-02-24 05:29] LABS: BASOPHILS 1.0 % (0.1-1.2); EOSINOPHILS 1.3 % (0.7-5.8); LYMPHOCYTES 24.5 % (19.3-51.7); MCH 21.3 PG (25.6-32.2); MCHC 29.6 g/dL (32.2-35.5); MCV 72.0 fL (79.4-94.8); MONOCYTES 11.3 % (4.7-12.5); NEUTROPHILS 61.4 % (34.0-71.1); RBC 5.11 M/uL (3.93-5.22)
[2025-02-24 05:47] LABS: ALT (SGPT) 74.0 U/L (14-59); AST (SGOT) 71.0 U/L (15-37); GLOMERULAR FILTRATION RATE,EST 37.0 mL/min (>60); PROTEIN, TOTAL 5.3 g/dL (6.4-8.2); UREA NITROGEN 30.0 mg/dL (7-18)
--- NOTE | 2025-02-24 05:55 | NUR ---
PT AWAKE, REPORTS SLEEPING WELL. FRESH ICE WATER, ICE CHIPS AND COFFEE PROVIDED PER REQUEST. LS DIM TO BASES, REMAINS ON RA. DENIES SOB. CPOX IN PLACE.
[2025-02-24] MEDS ORDERED: HYDROCODONE/ACETA 5/325 TAB PO PRN (07:45)
--- NOTE | 2025-02-24 08:10 | NUR ---
PATIENT AWAKE SITTING UP IN CHAIR, ALERT AND ORIENTED X3, NO ACUTE DISTRESS. PATIENT REPORTS CONTINUED 8/10 BACK PAIN, TWO TABS NORCO 5/325MG PO ADMIN AT THIS TIME. PATIENT IS ON ROOM AIR, RESPIRATIONS NON LABORED, PT DENIES SHORTNESS OF BREATH AT REST.
--- NOTE | 2025-02-24 08:29 | NUR ---
SBA TO THE BATHROOM. PATIENT WASHED THEIR FACE AND BRUSHED THEIR TEETH INDEPENDENTLY. RETURNED BACK TO BED AFTER EATING BREAKFAST IN THE RECLINER. CPOX REATTACHED. CALL LIGHT AND PERSONAL ITEMS ARE WITHIN REACH.
--- NOTE | 2025-02-24 15:24 | NUR ---
Patient awake, alert and oriented x3, no acute distress. Call light within reach.
--- NOTE | 2025-02-24 15:36 | NUR ---
PATIENT STATES FRIEND FROM [employer] MAY BRING IN HER CPAP IN A DAY OR TWO.
--- NOTE | 2025-02-24 16:25 | NUR ---
Patient awake in bed on her phone, no distress. Patient reports 4/10 back pain, admin two tabs norco 5/325mg po at this time. Patient provided with fresh water. No further needs. Patient denies sob at rest.
--- NOTE | 2025-02-24 18:16 | NUR ---
PATIENT IS IN BED AT THIS TIME, LAMINATOR PRINTED CIRCUIT BOARDS CHARTED VITALS AND I&O'S, CALL LIGHT WITH IN REACH AND NOTHING ELSE NEEDED AT THIS TIME.
--- NOTE | 2025-02-24 18:59 | NUR ---
Pt report received from LADONNA Martínez. Pt is resting in bed, supine, with HOB elevated, watching TV, in no acute distress. Pt states she was supposed to have a dressing change performed at home today by [facility], but since she was in the hospital, this didn't get done. I told the pt that there is a wound consult order entered but that we don't always have wound care nurses available on the weekend. Pt verbalized understanding. I noted that there is some drainage on the bull wrap of the pt's left lower leg, closes to the ankle. Assessment done at this time. Pt denies further needs. Side rails up x4, call light in reach, white board updated.
--- NOTE | 2025-02-24 20:20 | NUR ---
Assisted Pt after putting on non-slip socks SBA/1PA FWW from bed the bathroom and back. Assisted Pt in changing TV channels. No other needs expressed by Pt.
--- NOTE | 2025-02-24 20:33 | NUR ---
ROBBIN WAS OFF THE CPOX WHEN RT ENTERED RROM, SO RT DC'ED ORDER. ROBBIN STATED THAT SHE WOULD NOT WEAR OUR HOME CPAP UNIT, THAT A FRIEND WAS GOING TO BRING HER HOME CPAP IN, SO RT PULLED THE HOSPITAL CPAP AND DC'ED THE ORDER. A NEW ORDER WILL BE PLACED ONCE ROBBIN'S HOME CPAP APPEARS.
--- NOTE | 2025-02-24 23:00 | NUR ---
In with pt in response to call light to use the restroom. Assisted pt to a seated position at edge of bed, then SBA as pt ambulated to the toilet with FWW. Assisted pt to change her personal underwear as she did leak some in them and assisted pt into a clean brief. SBA as pt ambulated with FWW back to bed, and assisted pt to get her legs into bed. 2 staff (this RN and extractor filler Malu) boosted pt higher up into the bed, warm blanket provided, no-slip socks removed, side rails up x4, call light in reach, bed alarm on. Pt denies further needs at this time.
[2025-02-25] VITALS (10 sets, daily range): BP systolic 106–136; BP diastolic 68–84
--- NOTE | 2025-02-25 00:45 | NUR ---
Assisted Pt SBA/1PA via FWW from bed to bathroom. Pt calls appropriately: Instructed Pt to pull bathroom call cord in reach when finished. No other needs expressed by Pt.
--- NOTE | 2025-02-25 02:40 | NUR ---
PATIENT WAS ASSISTED TO THE BATHROOM WITH FWW. PATIENT IS LAYING IN BED, CALL LIGHT IS WITHIN REACH AND NO FURTHER NEEDS AT THIS TIME.
--- NOTE | 2025-02-25 03:59 | NUR ---
In with pt in response to call light to request pain meds for back pain. Pt rates her back pain 9 out of 10 and states "tylenol doesn't touch it. Those pain pills helped though". Pt medicated with 2 tabs norco per emar. SBA as pt ambulated to toilet using FWW to void 150ml dark yellow urine. Pt brief changed at this time. Pt up to wash hands then back to bed. Pt requests a hot pack which was provided and applied to right lower back at her request. Call light, bedside table and personal belongings in reach, bed alarm on.
[2025-02-25 05:11] LABS: BASOPHILS 0.9 % (0.1-1.2); EOSINOPHILS 0.6 % (0.7-5.8); LYMPHOCYTES 17.1 % (19.3-51.7); MCH 21.3 PG (25.6-32.2); MCHC 29.1 g/dL (32.2-35.5); MCV 73.0 fL (79.4-94.8); MONOCYTES 8.6 % (4.7-12.5); NEUTROPHILS 72.4 % (34.0-71.1); RBC 5.41 M/uL (3.93-5.22)
[2025-02-25 05:29] LABS: ALT (SGPT) 96.0 U/L (14-59); AST (SGOT) 88.0 U/L (15-37); GLOMERULAR FILTRATION RATE,EST 41.0 mL/min (>60); PROTEIN, TOTAL 5.4 g/dL (6.4-8.2); UREA NITROGEN 27.0 mg/dL (7-18)
--- NOTE | 2025-02-25 06:09 | NUR ---
In with pt in response to call light. Pt states her back is uncomfortable and she would like to get up to the chair. SBA as pt uses FWW and transfers to the chair. Legs elevated in chair, pillows placed behind pt's back for support and comfort. Reheated pt's coffee at her request and warned her that it is extremely hot and to be careful. The pt verbalized understanding. Bedside table, personal belongings, and call light in reach. Pt watching TV. Denies further needs at this time.
--- NOTE | 2025-02-25 06:28 | NUR ---
In with pt in response to call light for c/o nausea. Pt is sitting up in chair. Zofran administered per emar for nausea. Call light in reach.
--- NOTE | 2025-02-25 07:05 | NUR ---
VERBAL REPORT RECEIVED FROM LADONNA MATOS. SITS UP IN RECLINER, AWAKE AND ALERT.
--- NOTE | 2025-02-25 08:05 | NUR ---
IN TO DO MORNING ROUNDS. WHITE BOARD UPDATED. PATIENT SITTING UP IN BED AT THIS TIME. REFUSED TO GO TO CHAIR SHE WAS ALREADY UP IN CHAIR EARLIER THIS MORNING. CALL LIGHT IN REACH. NO FURTHER NEEDS AT THIS TIME.
--- NOTE | 2025-02-25 08:26 | NUR ---
PT SITS UP IN BED, ATTEMPTS TO EAT BREAKFAST, REPORTS NAUSEA. COMPAZINE RECIEVED, SEE EMAR.
--- NOTE | 2025-02-25 08:40 | NUR ---
PT NOW REPORTS NAUSEA IS, "BETTER." PT EATS SOME OF HER BREAKFAST, TOLERATES THIS WELL. SCHEDULED AM MEDICATIONS RECEIVED.
--- NOTE | 2025-02-25 11:14 | NUR ---
PATIENT UP TO BATHROOM THEN BACK TO CHAIR, SBA FWW. SPONGE BATH GIVEN. SHAMPOO CAP, ZENA CARE, SKIN CARE, AM CARE, ORAL CARE DONE. NEW GOWN AND DEPENDS ON. LINENS CHANGED. PATIENT THEN TO BED, SBA FWW. LEGS ELEVATED. CALL LIGHT IN REACH. NO FURTHER NEEDS AT THIS TIME.
--- NOTE | 2025-02-25 14:10 | NUR ---
WOUND CARE CONSULTED FOR WEEPING BLE. HISTORY OF PRESENT ILLNESS: PT IS AN 89 YEAR OLD FEMALE ADMITTED ON 02/22/25 FOR SOB WITH CHF EXACERBATION. ARRIVES WITH COMPRESSION DRESSINGS TO BLE FROM TOES TO KNEES. BLE MANAGED BY [facility]. PAST MEDICAL HISTORY: PACEMAKER, A-FIB ON XARELTO, NEUROPATHY, SMITH WITH CPAP AT HOME, CHF, EF 35%, HTN, HLD, CVA, LBBB, VITAMIN D DEFICIENCY. ALLERGIES: NITROFURANTOIN ASSESSMENT AND PROCEDURE: OLD DRESSINGS REMOVED FROM BLE. NOTED 4+ PITTING EDEMA FROM ANKLES TO KNEE. TRACE EDEMA IN FEET, 2+ PITTING EDEMA IN THIGHS. DP PULSES STRONG. PLASTIC EYE TECHNICIAN <3. NO DISCERNABLE WOUNDS OR BREAKS IN THE SKIN. MODERATE AMOUNT OF OLD SEROUS DRAINAGE NOTED ON LEFT LOWER EXTREMITY DRESSING, NO SOURCE IDENTIFIED. BLE CLEANSED WITH WARM BATH WIPES. UNNA-Z ZINC PASTE WRAP APPLIED TO BLE FROM TOES TO KNEE WITH 50% OVERLAY, FOLLOWED BY CAST PADDING AND COBAN. PT TOLERATED WELL. UNABLE TO OBTAIN PHOTO, ANDREI NOT WORKING. 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 TREATMENT RECOMMENDATIONS: CLEANSE BLE WITH WARM SOAP AND WATER OR BATH WIPES. APPLY UNNA-Z ZINC PASTE WRAPS WITH 50% OVERLAY FROM BLE FROM TOES TO KNEE FOLLOWED BY CAST PADDING AND COBAN. CHANGE DRESSINGS EVERY 3 DAYS. GOALS: MANAGE EDEMA, CONTROL DRAINAGE, PROTECT SKIN INTEGRITY.
--- NOTE | 2025-02-25 14:26 | NUR ---
PATIENT BACK TO CHAIR FROM BATHROOM, SBA FWW. VITALS AND I&O'S DONE AND CHARTED. CALL LIGHT IN REACH. CHAIR ALARM ON. NO FURTHER NEEDS AT THIS TIME.
--- NOTE | 2025-02-25 16:35 | NUR ---
DR. ALEJO NOTIFIED OF WOUND CONSULT RESULTS AND BLE EDEMA.
--- NOTE | 2025-02-25 17:04 | NUR ---
PT RECIEVES COMPAZINE FOR REPORT OF NAUSEA PRIOR TO DINNER. DINNER ARRIVES. PT ATTEMPTS TO EAT DINNER, TOLERATING WELL AT THIS TIME.
--- NOTE | 2025-02-25 18:22 | NUR ---
PATIENT SITTING UP IN CHAIR AT THIS TIME. VITALS AND I&O'S DONE AND CHARTED. CALL LIGHT IN REACH. CHAIR ALARM ON. NO FURTHER NEEDS AT THIS TIME.
--- NOTE | 2025-02-25 18:30 | NUR ---
PT SITTING UP IN CHAIR. C/O NAUSEA. MEDICATED WITH ZOFRAN IVP. PT OFFERED TO RETURN TO BED, DECLINED. CHAIR LOCKED, CALL [place] IN REACH, CHAIR ALARM ACTIVATED. PT VERBALIZED UNDERSTANDING
--- NOTE | 2025-02-25 19:28 | NUR ---
PT OOB TO CHAIR, CONTINUES TO C/O NAUSEA. REQUESTING ICE PACK FOR BACK PAIN. CALL [place] IN REACH, CHAIR ALARM IN PLACE AND ACTIVATED, CHAIR LOCKED.
--- NOTE | 2025-02-25 19:30 | NUR ---
REPORT RECEIVED FROM LADONNA ZAMORA. PATIENT RESTING IN BED, RESPIRATIONS EVEN AND UNLABORED. COMPRESSION DRESSING ON LEGS INTACT, CMS INTACT. NO NEEDS IDENTIFIED, CALL LIGHT IN REACH
--- NOTE | 2025-02-25 20:11 | NUR ---
PT INC HAIR, ALERMS GOING OFF, PT STANDING INFRONT OF CHAIR/TABLE IN FRONT. C/O 9/10 BACK CRAMPSING. MEDICATED WITH 2 NORCO. IRRITABLE MOOD. COOP WITH VITALS, TELE IN PLACE. SL RAC SLUGGISH WHEN FLUSHED. PATENT UP TO BRP. VPIDED MEDIUM DARK YELLOW URINE. 1PA/FWW TOLERATED WELL, BACK TO CHAIR, FAMILY VISITING. THEY BROUGHT BACK HER HOME CPAP.
--- NOTE | 2025-02-25 20:34 | NUR ---
ROBBIN'S HOME CPAP ARRIVED. SHE HAS A HOME RESMED CPAP +13 WITH A SMALL NASAL MASK. RT CHANGED THE FILTER AND FILLED THE HUMIDIFICATION FOR ROBBIN TO USE.
--- NOTE | 2025-02-25 21:08 | NUR ---
MULTIPLE CALL FOR MULTIPLE C/O. STILL C/O BACK CRAMPING. UP TO BRP AT [facility].
--- NOTE | 2025-02-25 21:16 | NUR ---
VOIDED, BACK TO CHAIR, GOT UP OFF BR W/O USING CALL LIGHT, REINSTRUCTED TO CALL FOR HELP. ICE PACK GIVEN EARLIER, THEN A NEW HOT PACK FOR BACK CRAMPING GIVEN, AND CALLED AGAIN FOR ANOTHER ICE PACK, PLACED ON L MID BACK, PT IN CHAIR, DECLINED TO ELEVATE LEGS, IRRITABLE MOOD,
--- NOTE | 2025-02-25 21:44 | NUR ---
PATIENT ASSISTED BACK TO BED WITH USE OF FWW. ASSESSMENT COMPLETED, GIVEN PILLOWS FOR BACK SUPPORT AND ICE PACK PLACED ON BACK. DRESSINGS ON LEGS INTACT, CMS INTACT. LUNG SOUNDS CLEAR BUT TIGHT. PATIENT DENIES SOB. CPAP SET UP FOR PATIENT BY RT, PATIENT DENIES NEED FOR SYSTEM AT THIS TIME, WOULD LIKE TO WAIT UNTIL SHE IS READY TO GO TO SLEEP. BED ALARM ON, CALL LIGHT AND PERSONAL BELONGINGS IN REACH.
--- NOTE | 2025-02-25 22:58 | NUR ---
ROUNDED ON PATIENT, PATIENT RESTING WITH EYES CLOSED, RESPIRATIONS EVEN AND UNLABORED. CPAP IN PLACE, NO NEEDS, CALL LIGHT IN REACH
[2025-02-26] VITALS (12 sets, daily range): BP systolic 104–133; BP diastolic 58–86
--- NOTE | 2025-02-26 01:16 | NUR ---
IN ROOM IN RESPONSE TO BED ALARM. PATIENT REPOSITIONING IN BED. ASSISTED WITH REPOSITION, NO OTHER NEEDS, CPAP IN PLACE. CALL LIGHT IN REACH
--- NOTE | 2025-02-26 01:49 | NUR ---
IN ROOM IN RESPONSE TO BED ALARMS, PATIENT GRABBING STUFF OFF BEDSIDE TABLE, STATING "WHY IS IT ALARMING? ARE YOU AFRAID OF ME FALLING OR SOMETHING?" PATIENT EDUCATED ON USE OF BED ALARM. REPOSITIONED IN BED PER REQUEST. BED ALARM ON, NO FURTHER NEEDS, CALL LIGHT IN REACH
--- NOTE | 2025-02-26 02:42 | NUR ---
PATIENT CALLED TO USE THE BATHROOM SBA USING WALKER TO VOID 200ML YELLOW URINE. PATIENT IS BACK IN BED. NO OTHER NEEDS AT THIS TIME. BED ALARM ACTIVATED FOR SAFETY. CALL LIGHT AND SIDE TABLE WITHIN REACH.
--- NOTE | 2025-02-26 03:53 | NUR ---
CALL LIGHT ANSWERED, PATIENT UP TO RESTROOM PER REQUEST, UP TO SIT IN CHAIR. WARM PACK PROVIDED FOR BACK. CHAIR ALARM ON, WATER PROVIDED. NO FURTHER NEEDS, CALL LIGHT IN REACH
--- NOTE | 2025-02-26 05:19 | NUR ---
PATIENT REMAINS UP IN CHAIR FOR COMFORT, VS OBTAINED AND RECORDED. INTAKE AND OUTPUT DOCUMENTED. LUNG SOUNDS ARE CLEAR, COMPRESSION DRESSINGS BLE INTACT, CMS INTACT. PATIENT DENIES ANY FURTHER NEEDS, CALL LIGHT IN REACH
[2025-02-26 05:20] LABS: BASOPHILS 0.5 % (0.1-1.2); EOSINOPHILS 0.5 % (0.7-5.8); LYMPHOCYTES 19.1 % (19.3-51.7); MCH 21.1 PG (25.6-32.2); MCHC 29.5 g/dL (32.2-35.5); MCV 71.6 fL (79.4-94.8); MONOCYTES 8.8 % (4.7-12.5); NEUTROPHILS 70.6 % (34.0-71.1); RBC 5.45 M/uL (3.93-5.22)
[2025-02-26 05:38] LABS: ALT (SGPT) 122.0 U/L (14-59); AST (SGOT) 112.0 U/L (15-37); GLOMERULAR FILTRATION RATE,EST 57.0 mL/min (>60); PROTEIN, TOTAL 5.8 g/dL (6.4-8.2); UREA NITROGEN 26.0 mg/dL (7-18)
--- NOTE | 2025-02-26 07:44 | NUR ---
REPORT RECEIVED FROM CAESAR DOUGHERTY. PATIENT IN CHAIR, EYES CLOSED, CHEST RISE EVEN AND UNLABORED. CALL LIGHT AND PERSONAL BELONGINGS IN REACH.
--- NOTE | 2025-02-26 08:15 | NUR ---
IN TO DO MORNING ROUNDS. WHITE BOARD UPDATED. PATIENT IN CHAIR AT THIS TIME. LINENS CHANGED. WASH CLOTH GIVEN. CALL LIGHT IN REACH. NO FURTHER NEEDS AT THIS TIME.
--- NOTE | 2025-02-26 08:55 | NUR ---
PATIENT CALLED TO USE BATHROOM, UP TO BATHROOM THEN TO BED, 1PA FWW. PATIENT DID ORAL CARE AT SINK. CALL LIGHT IN REACH. NO FURTHER NEEDS AT THIS TIME.
[2025-02-26] MEDS ORDERED: BUMETANIDE 1 MG TAB PO SCH (09:00)
--- NOTE | 2025-02-26 10:18 | NUR ---
PATIENT IN BED, CALL LIGHT IN REACH. MEDICATION ADMINISTERED, ASSESMENT COMPLETE. SCDS IN PLACE.
--- NOTE | 2025-02-26 10:24 | NUR ---
PATIENT SITTING UP IN BED AT THIS TIME. VITALS AND I&O'S DONE AND CHARTED. RN NOW IN ROOM. CALL LIGHT IN REACH. NO FURTHER NEEDS AT THIS TIME.
--- NOTE | 2025-02-26 10:36 | NUR ---
IMM LETTER COMPLETED. PATIENT STILL AGREEABLE TO SNF WHEN MEDICALLY CLEARED TO GO. ACCEPTED AT [facility]. UPDATES FAXED OVER. NO FUTHER NEEDS.
--- NOTE | 2025-02-26 11:19 | NUR ---
PATIENT IN BED, REPORTS 9/10 PAIN. ICE PACK PROVIDED, ASSISTED PATIENT TO CHAIR PER PATIENT REQUEST. PRN PAIN MEDICATION ADMINISTERED. CALL LIGHT AND PERSONAL BELONGINGS IN REACH OF PATIENT. PATIENT DENIES FURTHER CONCERNS AT THIS TIME.
--- NOTE | 2025-02-26 11:34 | NUR ---
PATIENT IN CHAIR, CALL LIGHT IN REACH. LEGS ELEVATED, SCDS NOT PRESENT. ELNI BOOT DRESSING CDI. PATIENT DENIES CONCERNS AT THIS TIME.
--- NOTE | 2025-02-26 12:07 | NUR ---
PATIENT IN CHAIR, CALL LIGHT IN REACH. PATIENT REPORTS 3/10 PAIN IN LOWER LEG. DENIES NUMBNESS OF [place], CMS INTACT. PATIENT PROVIDED WITH ICE PACK AT HER REQUEST. PATIENT REFUSES PILLOW UNDER LEGS AT THIS TIME. PATIENT EDUCATION PROVIDED REGARDING BENEFITS OF ELEVATING LEGS. PATIENT AGREEABLE TO FOOT REST UP IN CHAIR, CONTINUES TO REFUSE PILLOW UNDER LEGS. CALL LIGHT AND PERSONAL BELONGINGS IN REACH. PATIENT DENIES FURTHER CONCERNS.
--- NOTE | 2025-02-26 13:48 | NUR ---
PATIENT UP TO BATHROOM THEN BACK TO BED, 1PA FWW. VITALS AND I&O'S DONE AND CHARTED. FOOT SCDS ON. CALL LIGHT IN REACH. NO FURTHER NEEDS AT THIS TIME.
--- NOTE | 2025-02-26 14:05 | NUR ---
PATIENT IN BED, VENOUS FOOT PUMPS IN PLACE. CALL LIGHT AND PERSONAL BELONGINGS IN REACH OF PATIENT. PATIENT DENIES CONCERNS.
--- NOTE | 2025-02-26 14:57 | NUR ---
PATIENT SITTING UPRIGHT IN CHAIR, VISITING WITH FAMILY WHO IS AT BEDSIDE.
--- NOTE | 2025-02-26 15:17 | NUR ---
PATIENT IN CHAIR VISITING WITH CAREGIVER. PATIENT REPORTS NAUSEA. PRN MEDICATION GIVEN PER PATIENT REQUEST. PATIENT DENIES CONCERNS. CALL LIGHT AND PERSONAL BELONGINGS IN REACH OF PATIENT.
--- NOTE | 2025-02-26 15:18 | NUR ---
PATIENT IN CHAIR AT THIS TIME. WATER TECHNICIAN CHARTED HOURLY ROUNDS, PATIENT ASKED FOR SOMETHING FOR NAUSEA. CALL LIGHT WITHIN REACH, NO FURTHER NEEDS.
--- NOTE | 2025-02-26 16:25 | NUR ---
PATIENT SITTING IN CHAIR, PERSONAL BELONGINGS IN REACH.
--- NOTE | 2025-02-26 16:44 | NUR ---
ASSISTED PATIENT TO RESTROOM AND BACK TO CHAIR. MEDICATION ADMINISTERED. CALL LIGHT AND PERSONAL BELONGINGS IN REACH.
--- NOTE | 2025-02-26 18:05 | NUR ---
PATIENT IN CHAIR. EYES CLOSED, CHEST RISE EVEN AND UNLABORED. CALL LIGHT AND PERSONAL BELONGINGS IN REACH OF PATIENT.
--- NOTE | 2025-02-26 18:12 | NUR ---
PATIENT IN BED AT THIS TIME. THIS ROUTE DELIVERY SERVICE DRIVER CHARTED VITALS AND I&O'S. THIS ROUTE DELIVERY SERVICE DRIVER ASSISTED PATIENT FROM CHAIR TO BATHROOM AND THEN TO BED. PATIENT ABLE TO BRUSH TEETH INDEPENDENTLY. CALL LIGHT WITHIN REACH, NO FURTHER NEEDS AT THIS TIME.
--- NOTE | 2025-02-26 18:37 | NUR ---
PATIENT IN CHAIR, CALL LIGHT AND PERSONAL BELONGINGS IN REACH
--- NOTE | 2025-02-26 19:50 | NUR ---
Patient awake, alert and oriented x3, no acute distress. Patient up to restroom with walker, tolerated ambulation well with one person SBA. Patient requesting to sit up in chair for a little while, alarm in place. Patient denies further needs, personal supplies and call light within reach.
[2025-02-26] MEDS ORDERED: MELATONIN 3 MG TAB PO PRN (23:45)
--- NOTE | 2025-02-26 23:49 | NUR ---
Patient reports she is having difficulty falling asleep. Patient requesting melatonin, order placed per protocol.
[2025-02-27 01:28] VITALS: BP 110/61
[2025-02-27 02:00] VITALS: BP 110/61
--- NOTE | 2025-02-27 02:00 | NUR ---
Patient resting in bed, eyes closed, respirations non labored. Call light within reach.
--- NOTE | 2025-02-27 04:44 | NUR ---
Patient resting in bed, eyes closed, respirations even and non labored. Personal supplies and call light within reach.
[2025-02-27 05:24] VITALS: BP 126/60
[2025-02-27 05:29] LABS: BASOPHILS 0.5 % (0.1-1.2); EOSINOPHILS 0.2 % (0.7-5.8); LYMPHOCYTES 15.2 % (19.3-51.7); MCH 21.3 PG (25.6-32.2); MCHC 29.9 g/dL (32.2-35.5); MCV 71.2 fL (79.4-94.8); MONOCYTES 7.2 % (4.7-12.5); NEUTROPHILS 76.5 % (34.0-71.1); RBC 5.35 M/uL (3.93-5.22)
[2025-02-27 05:53] LABS: ALT (SGPT) 120.0 U/L (14-59); AST (SGOT) 93.0 U/L (15-37); GLOMERULAR FILTRATION RATE,EST 53.0 mL/min (>60); PROTEIN, TOTAL 5.8 g/dL (6.4-8.2); UREA NITROGEN 23.0 mg/dL (7-18)
--- NOTE | 2025-02-27 06:04 | NUR ---
Patient sitting up in bed, alert/oriented x3. Patient reports nausea. Admin zofran 4mg iv at this time. Personal supplies and call light within reach.
[2025-02-27 06:27] VITALS: BP 126/60
--- NOTE | 2025-02-27 07:24 | NUR ---
REPORT RECEIVED FROM ERASTO DOUGHERTY. ASSISTED PATIENT FROM BED TO BATHROOM AND TO CHAIR. PATIENT SITTING UPRIGHT IN CHAIR, REFUSES TO ELEVATE LEGS AT THIS TIME. CALL LIGHT AND PERSONAL BELONGINGS IN REACH OF PATIENT. PATIENT DENIES CONCERNS.
--- NOTE | 2025-02-27 08:20 | NUR ---
Spoke with Ramandeep. Updated we discussed her in the morning meeting. Pt has had a medication change. She will need to have labs later today. I updated Layton and was notified, pt has [facility]. Her auth for admission expires today. They will need to reapply for auth and this could take up 2-[address] Main.
--- NOTE | 2025-02-27 08:53 | NUR ---
SBA TO THE BATHROOM. PATIENT INDEPENDENTLY WASHED THEIR HANDS, FACE, AND BRUSHED THEIR TEETH.
[2025-02-27 08:58] VITALS: BP 111/64
[2025-02-27] MEDS ORDERED: BUMETANIDE 1 MG TAB PO SCH (09:00)
--- NOTE | 2025-02-27 10:05 | NUR ---
PATIENT IN BED. SCHEDULED MEDICATIONS ADMINISTERED. ASSESMENT COMPLETE. MD AT BEDSIDE. VERBAL ORDER RECEIVED TO HOLD AND DC ORDER FOR SPIRONOLACTONE. CARDIAC NURSE AT BESIDE. CALL LIGHT IN REACH
--- NOTE | 2025-02-27 10:34 | NUR ---
Pt awake and alert in bed. Educations completed on CHF. PT is [place] and needed things repeated many times. Pt verbalized understanding and all of her questions were answered at this time. If pt has any additional question, I will return to her room to answer them.
--- NOTE | 2025-02-27 10:41 | NUR ---
PATIENT IN BED, CALL LIGHT IN REACH
--- NOTE | 2025-02-27 11:00 | NUR ---
Notified by Dr. Main, pt will be able to dc today. She will need to have fu labs. I called her pcp, Dr. Solitario. She states they do not see their pts while they are in a SNF. She asks labs to be viewed by the SNF provided. I updated Layton. She will pass this on.
--- NOTE | 2025-02-27 11:20 | NUR ---
ASSISTED PATIENT TO RESTROOM AND INTO CHAIR. PATIENT IN CHAIR, CALL LIGHT AND PERSONAL BELONGINGS IN REACH OF PATIENT. LINLORETTAN CHANGE COMPLETED. PATIENT PROVIDED WITH ARM WASHCLOTH FOR FACE AND DEODERANT. GARBAGES EMPTIED AND ROOM TIDIED. PATIENT DENIES CONCERNS AT THIS TIME.
[2025-02-27] MEDS ORDERED: BUMETANIDE1 MG PO (12:08)
[2025-02-27] MEDS ORDERED: HYDROCODON-ACE1 EA10 PO (12:08)
[2025-02-27] MEDS ORDERED: GABAPENTIN400 MG PO (12:09)
[2025-02-27] MEDS ORDERED: PROCHLORPERAZINE5 MG PO (12:10)
--- NOTE | 2025-02-27 12:10 | NUR ---
Received orders for SNF. Faxed face sheet, orders, Pasrr, RX's DC summary, EMAR. Spoke with charge nurse and requested pt go to [place] in a taxi. I have notified Layton and they will assist her into the building.
[2025-02-27] MEDS ORDERED: MELATONIN3 MG PO (12:12)
--- NOTE | 2025-02-27 12:12 | NUR ---
PATIENT IN CHAIR. CALL LIGHT AND PERSONAL BELONGINGS IN REACH
[2025-02-27] MEDS ORDERED: POTASSIUM CHLO20 ME1 PO (12:14)
[2025-02-27 13:26] VITALS: BP 121/51
--- NOTE | 2025-02-27 13:41 | NUR ---
ASSISTED PATIENT TO BRUSH HER TEETH. PATIENT NOW SITTING AT EDGE OF BED. PATIENT DENIES CONCERNS. CALL LIGHT IN REACH.
--- NOTE | 2025-02-27 13:56 | NUR ---
CALLED REPORT TO IRENE DOCKERY. SHE VERBALIZED UNDERSTANDING. ALL QUESTIONS ANSWERED. SHE DENIES FURTHER QUESITONS OR CONCNERS. REVIEWED PATIENT CARE PLAN INCLUDING WOUND CARE ORDERS, FLUID RESTRICTION, MEDICATIONS, AND DAILY WEIGHT. PATIENT OFF UNIT WITH NURSING PERSONALE.
== END 2025-02-27 13:45 | DRG 291 ==
LOC: ED 11:30 → MS 14:06
PROVIDERS: Emergency Medicine; Student in an Organized Health Care Education/Training Program; ADMIT Family Medicine; ATTEND Family Medicine
DX: I11.0 Hypertensive heart disease with heart failure (principal); I50.43 Acute on chronic combined systolic (congestive) and diastolic (congestive) heart failure; E78.5 Hyperlipidemia, unspecified; I48.91 Unspecified atrial fibrillation; I44.7 Left bundle-branch block, unspecified; E80.6 Other disorders of bilirubin metabolism; E87.6 Hypokalemia; G47.33 Obstructive sleep apnea (adult) (pediatric); R11.0 Nausea; Z86.73 Personal history of transient ischemic attack (TIA), and cerebral infarction without residual deficits; Z91.81 History of falling; Z82.49 Family history of ischemic heart disease and other diseases of the circulatory system; Z90.49 Acquired absence of other specified parts of digestive tract; Z90.710 Acquired absence of both cervix and uterus; Z95.0 Presence of cardiac pacemaker; Z79.01 Long term (current) use of anticoagulants; Z79.899 Other long term (current) drug therapy
CPT/HCPCS: 36415; 71045; 80053; 83735; 83880; 84100; 84484; 85025; 93005; 93010; 94660; 94760; 94762; 94799; 97161; 97165; 97530; 97535; A9270; J0780; J1938; J2405

== ENCOUNTER 2025-03-04 23:52 | Emergency (ER) | payer MEDICARE ==
[~2025-03-04] VITALS: Ht 165.1 cm; Wt 88.5 kg
[~2025-03-04 23:52] MED LIST changes: +BUMETANIDE1 MG PO; +FAMOTIDINE40 MG PO; +FARXIGA10 MG PO; +FARXIGA5 MG PO; +FUROSEMIDE40 MG PO; +GABAPENTIN400 MG PO; +HYDROCODON-ACE1 EA10 PO; +MELATONIN3 MG PO; +POTASSIUM CHLO20 ME1 PO; +PROCHLORPERAZINE5 MG PO
[2025-03-05] MEDS ORDERED: ACETAMINOPHEN 325 MG TAB PO ONE ×2 (00:45→23:45)
[2025-03-05] MEDS ORDERED: HYDROCODON-ACE1 EA10 PO (01:48)
[2025-03-05] MEDS ORDERED: HYDROCODONE BIT/ACETAMINOPHEN 5/325 MG 1 TAB HOME.PACK PO ONE ×2 (02:00→07:15)
[2025-03-05 07:33] VITALS: BP 110/72
== END 2025-03-05 07:35 | disposition home or self-care (01) ==
LOC: ED 23:52
DX: S32.029A Unspecified fracture of second lumbar vertebra, initial encounter for closed fracture (principal); I10 Essential (primary) hypertension; E78.5 Hyperlipidemia, unspecified; W06.XXXA Fall from bed, initial encounter; Z79.899 Other long term (current) drug therapy; Z88.8 Allergy status to other drugs, medicaments and biological substances; Z86.73 Personal history of transient ischemic attack (TIA), and cerebral infarction without residual deficits
CPT/HCPCS: 70450; 72125; 72128; 72131; 99284-25; A9270

== ENCOUNTER 2025-03-26 21:01 | Emergency (ER) | payer MEDICARE ==
[~2025-03-26] VITALS: Ht 165.1 cm; Wt 79.0 kg
[~2025-03-26 21:01] MED LIST changes: +XARELTO15 MG PO; -XARELTO20 MG PO
[2025-03-26 21:35] LABS: BASOPHILS 0.2 % (0.1-1.2); EOSINOPHILS 0 % (0.7-5.8); LYMPHOCYTES 8.9 % (19.3-51.7); MCH 20.3 PG (25.6-32.2); MCHC 28.8 g/dL (32.2-35.5); MCV 70.4 fL (79.4-94.8); MONOCYTES 5.6 % (4.7-12.5); NEUTROPHILS 84.4 % (34.0-71.1); RBC 6.26 M/uL (3.93-5.22)
[2025-03-26] MEDS ORDERED: TIZANIDINE HCL2 M1 PO (21:42)
[2025-03-26 22:09] LABS: ALT (SGPT) 46.0 U/L (14-59); AST (SGOT) 71.0 U/L (15-37); GLOMERULAR FILTRATION RATE,EST 35.0 mL/min (>60); PROTEIN, TOTAL 6.3 g/dL (6.4-8.2); UREA NITROGEN 19.0 mg/dL (7-18)
[2025-03-26 22:26] LABS: INFLUENZA B NAA NEGATIVE (NEGATIVE); RESPIRATORY SYNCYTIAL VIR NAA NEGATIVE (NEGATIVE)
[2025-03-26] MEDS ORDERED: FUROSEMIDE 100 MG/10 ML VIAL IV ONE (22:45)
[2025-03-26 23:25] LABS: LACTIC ACID, BLOOD 2.0 mmol/L (0.4-2.0)
[2025-03-27 00:07] LABS: BLOOD/HGB, URINE TRACE-L (Negative); KETONE, URINE NEGATIVE (Negative); LEUK ESTERASE, URINE TRACE (negative); NITRITE, URINE NEGATIVE (negative)
[2025-03-27 00:18] LABS: BACTERIA, URINE 2+ /hpf (negative); CASTS, URINE NONE SEEN \\lpf; CRYSTALS, URINE CALCIUM OXALATE 2+ (0-1+); EPITHELIAL CELLS, URINE SQUAMOUS 2+ /lpf (0-1+)
[2025-03-27 00:19] LABS: REFLEX CULTURE, URINE No (No)
[2025-03-27] MEDS ORDERED: AZITHROMYCIN 500 MG in DEXTROSE 5% 250 ML IV ONE (00:45)
[2025-03-27] MEDS ORDERED: LASIX40 MG PO (00:55)
[2025-03-27] MEDS ORDERED: ALDACTONE25 MG PO (00:55)
[2025-03-27] MEDS ORDERED: LEVOFLOXACIN750 MG PO (00:55)
[2025-03-27] MEDS ORDERED: ONDANSETRON HCL4 MG PO (01:00)
[2025-03-27] MEDS ORDERED: ACETAMINOPHEN 500 MG TAB PO ONE (03:00)
[2025-03-27 08:40] VITALS: BP 118/83
--- NOTE | 2025-03-27 11:49 | EKG ---
[facility] [address] [facility] [place] [address] Signed Atrial fibrillation Left axis deviation Left bundle branch block Abnormal ECG When compared with ECG of 22-FEB-2025 12:03, No significant change was found Confirmed by Joselito Alejo DO ([id number]) on 03/27/2025 11:49:38 AM Electronically Signed By: JOSELITO ALEJO DO 03/27/25 1149 PATIENT NAME: ROBBIN OJEDA Electrocardiogram DATE OF : 39 PHYSICIAN: JOSELITO ALEJO DO REPORT #: [id number] REPORT IS CONFIDENTIAL AND NOT TO BE RELEASED WITHOUT AUTHORIZATION
== END 2025-03-27 08:35 ==
LOC: ED 21:01
PROVIDERS: Emergency Medicine
DX: I11.0 Hypertensive heart disease with heart failure (principal); I50.9 Heart failure, unspecified; Z91.A98 Caregiver's noncompliance with patient's other medical treatment and regimen for other reason; L89.629 Pressure ulcer of left heel, unspecified stage; L89.619 Pressure ulcer of right heel, unspecified stage; R11.2 Nausea with vomiting, unspecified; E78.5 Hyperlipidemia, unspecified; E11.65 Type 2 diabetes mellitus with hyperglycemia; I48.91 Unspecified atrial fibrillation; Z88.8 Allergy status to other drugs, medicaments and biological substances; Z79.899 Other long term (current) drug therapy
CPT/HCPCS: 36415; 71045; 80053; 81001; 83605; 83880; 84484; 85025; 85060; 87040; 87502; 93005; 93010; 96365; 96367; 96375; 96376; 99285-25; A9270; J0456; J0696; J1938; J2405; J7060; U0002

== ENCOUNTER 2025-04-02 00:42 | Inpatient (IN) | payer MEDICARE ==
[~2025-04-02] VITALS: Ht 165.1 cm; Wt 72.3 kg
[2025-04-02] VITALS (20 sets, daily range): BP systolic 74–109; BP diastolic 43–78
[~2025-04-02 00:42] MED LIST changes: +ALDACTONE25 MG PO; +LEVOFLOXACIN750 MG PO; +ONDANSETRON HCL4 MG PO; +TIZANIDINE HCL2 M1 PO
[2025-04-02] MEDS ORDERED: PROCHLORPERAZINE EDISYLATE 10 MG/2 ML VIAL IV ONE (01:00)
[2025-04-02 01:06] LABS: BASOPHILS 0.3 % (0.1-1.2); EOSINOPHILS 0 % (0.7-5.8); LYMPHOCYTES 6.0 % (19.3-51.7); MCH 20.3 PG (25.6-32.2); MCHC 28.6 g/dL (32.2-35.5); MCV 71.1 fL (79.4-94.8); MONOCYTES 4.6 % (4.7-12.5); NEUTROPHILS 87.3 % (34.0-71.1); RBC 6.64 M/uL (3.93-5.22)
[2025-04-02 01:35] LABS: ALT (SGPT) 159.0 U/L (14-59); AST (SGOT) 615.0 U/L (15-37); GLOMERULAR FILTRATION RATE,EST 30.0 mL/min (>60); PROTEIN, TOTAL 6.2 g/dL (6.4-8.2); UREA NITROGEN 15.0 mg/dL (7-18)
[2025-04-02 01:41] LABS: INFLUENZA B NAA NEGATIVE (NEGATIVE); RESPIRATORY SYNCYTIAL VIR NAA NEGATIVE (NEGATIVE)
[2025-04-02] MEDS ORDERED: FUROSEMIDE 100 MG/10 ML VIAL IV ONE (02:00)
[2025-04-02] MEDS ORDERED: ALBUMIN HUMAN 25% 100 ML BTL IV ONE (02:00)
[2025-04-02] MEDS ORDERED: ACETAMINOPHEN 325 MG TAB PO PRN (02:30)
[2025-04-02] MEDS ORDERED: ALBUTEROL SULFATE 0.083% 3 ML VIAL INH PRN (04:00)
--- NOTE | 2025-04-02 04:59 | NUR ---
Dr. Drummond at bedside. Wounds assessed w/ Dr. Drummond and Uzma, RN. See pictures in chart. Labs ordered. Care plan discussed. MAP > 65. Spo2 97% on 2L NC. Pt has not voided since admission to CCU. Plan to bladder scan. Insert Friedman if retaining urine per Dr. Drummond.
--- NOTE | 2025-04-02 05:35 | NUR ---
WOUND ASSESMENT COMPLETED. ALL WOUNDS CLEANED WITH VASHE, CAVILON PLACED, COVERED WITH FOAM DRESSINGS WITH ADHESIVE BORDERS. PT TOLERATED WELL. NO ODOR DETECTED ON WOUNDS. HEELS ELEVATED ABOVE THE BED. PER DR HARRINGTON, STAFF WILL WAIT UNTIL AFTER IMAGING TODAY TO COMPLETE A WOUND CARE PLAN.
[2025-04-02] MEDS ORDERED: INSULIN LISPRO 100 UNIT/ML ML SUB-Q SCH (07:00)
--- NOTE | 2025-04-02 07:30 | NUR ---
REPORT RECEIVED FROM ADINA DOUGHERTY. PT RESTING IN BED, EYES CLOSED, RESP EVEN AND UNLABORED, ON CONT CARDIAC MONITORING WITH HR 80'S, PACED RHYTHM.
--- NOTE | 2025-04-02 08:10 | NUR ---
IN TO DO ASSESSMENT, PT AWAKENS EASILY. STATES HER ONLY PAIN IS WHEN SOMEONE TOUCHES HER FEET OR LEGS. SHE DOES STATE "IM A LITTLE QUEESY," AND THAT SHE HASNT BEEN EATING MUCH LATELY BECAUSE SHE HAS BEEN THROWING UP. SHE DOES NOT WANT BREAKFAST AT THIS TIME.
--- NOTE | 2025-04-02 08:44 | NUR ---
LACTIC ACID AND BMP DRAWN FROM IV. PT THEN STATES SHE NEEDS TO HAVE BOWEL MOVMENT, PT PLACED ON BEDPAN WITH CALL LIGHT IN HAND.
[2025-04-02 08:58] LABS: GLOMERULAR FILTRATION RATE,EST 32.0 mL/min (>60); UREA NITROGEN 18.0 mg/dL (7-18)
[2025-04-02] MEDS ORDERED: FUROSEMIDE 40 MG TAB PO SCH (09:00)
[2025-04-02] MEDS ORDERED: FUROSEMIDE 100 MG/10 ML VIAL IV SCH (09:00)
--- NOTE | 2025-04-02 09:30 | NUR ---
PT WAS UNABLE TO HAVE A BOWEL MOVEMENT, DID HAVE SMEAL, ZENA AREA CLEANED UP AND PT REPOSITIONED IN BED.
[2025-04-02] MEDS ORDERED: POTASSIUM BICARBONATE/CIT AC 20 MEQ TABEF PO ONE (09:45)
--- NOTE | 2025-04-02 09:59 | NUR ---
ALERT AND ORIENTED IN BED. STATES SHE WAS AT [facility] FOR SNF PRIOR TO ARRIVAL TO HOSPITAL. SHE IS WONDERING ABOUT POTENTIALLY GOING TO [facility] BUT STATES SHE NEEDS TO DISCUSS THIS WITH HER SON. FOR NOW, SHE WILL PLAN ON RETURNING TO [facility]. SHE NORMALLY LIVES AT HOME. HAS A WALKER AND DRIVES. DENIES ANY FINANCIAL DIFFICULTIES. DC [facility] [place].
--- NOTE | 2025-04-02 10:00 | NUR ---
IV SITE IN RIGHT UPPER ARM NOT INTACT, DOES NOT FLUSH, LARGE BRUISING AROUND AREA, IV REMOVED, CATHETER TIP INTACT.
--- NOTE | 2025-04-02 11:15 | NUR ---
PT WAS GIVEN WIPE DOWN, LINENS CHANGED. POSITIONED IN BED FOR COMFORT.
--- NOTE | 2025-04-02 12:15 | NUR ---
DR HARRINGTON ROUNDING ON UNIT, UPDATED ON NEWEST LACTIC ACIDE AND TROPONIN LEVELS, NO NEW ORDERS AT THIS TIME. BOTH TRENDING IN EXPRECTED DIRECTION.
--- NOTE | 2025-04-02 13:56 | NUR ---
PT TAKEN DOWN TO CT, NOW BACK IN ROOM. TRIED SOME BITES OF CREAM OF WHEAT. AFTER THREE BITES SHE DID NOT WANT MORE, REPORTS FEELING NAUSEATED AFTER EATING.
[2025-04-02] MEDS ORDERED: NEURONTIN400 MG PO (14:19)
[2025-04-02] MEDS ORDERED: MIRALAX119 GM PO (14:20)
[2025-04-02] MEDS ORDERED: TOPROL XL25 MG PO (14:23)
[2025-04-02] MEDS ORDERED: BUMETANIDE2 MG PO (14:25)
[2025-04-02] MEDS ORDERED: BISACODYL10 MG PR (14:26)
[2025-04-02] MEDS ORDERED: FLEET ENEMA133 ML PR (14:26)
[2025-04-02] MEDS ORDERED: TYLENOL325 MG PO (14:27)
[2025-04-02] MEDS ORDERED: HYDROCODON-ACE1 EA10 PO (14:28)
[2025-04-02] MEDS ORDERED: [UNRECOGNIZED DRUG - OTHER] PO (14:29)
--- NOTE | 2025-04-02 14:30 | NUR ---
PT COMPLAINED OF BACK PAIN, ASKS FOR PAIN MEDICAITON AND MUSCLE RELAXER. TYLENOL GIVEN PER EMAR, DR HARRINGTON INFORMED OF PT REQUEST, DOES NOT WANT TO GIVE MUSCLE RELAXER UNTIL BPS ARE HIGHER.
[2025-04-02] MEDS ORDERED: ZANAFLEX2 M1 PO (14:31)
--- NOTE | 2025-04-02 14:34 | NUR ---
MEDICATIONS RECONCILED USING PHARMACY RECORDS AND MARS FROM FACILITY
--- NOTE | 2025-04-02 14:43 | NUR ---
UR CLINICAL REVIEW: 2 MN FOR [facility]-PER EMERGENCY MEDICAL TECHNICIAN MEETS INPT FOR SEPSIS WITH NEED FOR CLOSE MONITORING, SERIAL LABS, WOUND CARE AND IV ABX [facility] INPATIENT 04/02/25 @ 0227 ORDER MATCHES REG CLINICALS FAXED TO [facility] FOR REVIEW DISCHARGE TO HOME WHEN STABLE 04/03/25 DC REVIEW
[2025-04-02] MEDS ORDERED: ACETAMINOPHEN 500 MG TAB PO PRN (14:45)
--- NOTE | 2025-04-02 15:00 | NUR ---
SET RIDER FOR ECHOCARDIOGRAM
--- NOTE | 2025-04-02 16:00 | NUR ---
DR GONZALEZ IN TO SEE PT, WOUNDS UNDRESSED SO DR GONZALEZ COULD ASSESS THEM, DISCUSSES PLAN FOR POSSIBLE DEBRIDEMENT WITH PT AND DR HARRINGTON WHO ALSO CAME IN TO BEDSIDE.
--- NOTE | 2025-04-02 17:15 | NUR ---
DR HARRINGTON IN TO UPDATE SON AND ANSWER QUESTIONS REGARDING CARE.
--- NOTE | 2025-04-02 18:14 | NUR ---
PT HAS SAT ON BEDPAN ABOUT 30 MINUTES, HAD SMEAR ONLY. SON IN AT BEDSIDE.
--- NOTE | 2025-04-02 18:57 | NUR ---
SON SITTING AT BEDSIDE, TALKING WITH PT.
[2025-04-02] MEDS ORDERED: ONDANSETRON 4 MG TAB ODT SL PRN (20:15)
[2025-04-02] MEDS ORDERED: AMIODARONE HCL 200 MG TAB PO SCH ×2 (21:00)
[2025-04-02] MEDS ORDERED: SENNOSIDES/DOCUSATE 1 EA TAB PO SCH (21:00)
[2025-04-02] MEDS ORDERED: POLYETHYLENE GLYCOL 3350 1 PACKET PO SCH (21:00)
[2025-04-02] MEDS ORDERED: DEXTROSE 5% - NACL 0.9% 1,000 ML IV SCH (21:45)
[2025-04-03] VITALS (24 sets, daily range): BP systolic 86–124; BP diastolic 49–99
[2025-04-03 05:39] LABS: BASOPHILS 0.2 % (0.1-1.2); EOSINOPHILS 0.1 % (0.7-5.8); LYMPHOCYTES 13.8 % (19.3-51.7); MCH 21.0 PG (25.6-32.2); MCHC 30.2 g/dL (32.2-35.5); MCV 69.3 fL (79.4-94.8); MONOCYTES 3.5 % (4.7-12.5); NEUTROPHILS 81.9 % (34.0-71.1); RBC 5.44 M/uL (3.93-5.22)
[2025-04-03 06:04] LABS: ALT (SGPT) 234.0 U/L (14-59); AST (SGOT) 645.0 U/L (15-37); GLOMERULAR FILTRATION RATE,EST 45.0 mL/min (>60); PROTEIN, TOTAL 5.0 g/dL (6.4-8.2); UREA NITROGEN 16.0 mg/dL (7-18)
[2025-04-03] MEDS ORDERED: POTASSIUM CHLORIDE 40 MEQ,LIDOCAINE HCL 1% 40 MG in DEXTROSE 5% 250 ML IV SCH (07:30)
--- NOTE | 2025-04-03 08:15 | NUR ---
Pt alert and oriented x4- mentation wax and wanes- Heels propped up on pillows, wounds HUC, abd pad on R calf, skin protector on coccyx- D5NS @ 75 started- Pain with leg movements, pulses 2/doppler strong
--- NOTE | 2025-04-03 08:50 | NUR ---
IN PATIENT'S ROOM FOR AM ASSESSMENT. IV POTASSIUM STARTED IN LEFT UPPER ARM IV SITE THAT FLUSHES EASILY AND ASPIRATES BLOOD. 2ND IV SITE IN LEFT AC ALSO PULLS BACK BLOOD BUT THIS SITE WAS PAINFUL WITH THE POTASSIUM INFUSING. PT IS ALERT, ORIENTED AND PLEASANT. EDUCATED ON CAUSES OF HER PRESSURE SORES ON BILATERAL HEELS AND BACK OF LOWER CALF AREAS. LEGS ARE ELEVATED ON PILLOWS. BOTH BACK SIDES OF LEGS ARE OOZING FLUID-LEFT SIDE IS SEROUS FLUID AND RIGHT SIDE IS BLOODY DRAINAGE. PULSES ARE PALPABLE IN FEET. 2+ EDEMA PRESENT IN LEGS ALL THE WAY TO UPPER THIGHS. PT IS PACED MOST OF THE TIME ON MONITOR. TITRATING 02 DOWN TO 1 L NC FROM 3 L, CURRENTLY SP02 IS 100%. WILL CONTINUE TO TITRATE DOWN. PT DENIES PAIN OR NAUSEA AT THIS TIME. PT TO OR LATER TODAY TO HAVE DEBRIDEMENT OF LEGS. WILL CONTINUE TO MONITOR.
[2025-04-03] MEDS ORDERED: POTASSIUM CHLORIDE 10 MEQ TABCR PO ONE (09:30)
--- NOTE | 2025-04-03 11:05 | NUR ---
ALERT AND ORIENTED IN BED. SON AT BEDSIDE. PATIENT IS REQUESTING TO MOVE FROM [facility] TO [facility]. STATES SHE DOES NOT WANT TO RETURN TO [facility]. SON IS IN AGREEANCE WITH THIS. ALSO DISCUSSED POTENTIAL NEED FOR JAS[facility] IN THE FUTURE. SON STATES PATIENT'S SPOUSE WAS AT RESIDENTIAL PREVIOUSLY AND HE SEES THIS BEING SOMETHING SHE WILL NEED WELL. DISCUSSED RESIDENTIAL FACILITIES IN [facility] AND POTENTIAL COSTS. SON DENIES OTHER QUESTIONS AT THIS TIME.
[2025-04-03] MEDS ORDERED: IBLOOD GLUCOSE TEST STRIP 1 EA TEST VI SCH (12:00)
[2025-04-03] MEDS ORDERED: INSULIN LISPRO 100 UNIT/ML ML SUB-Q SCH (12:00)
--- NOTE | 2025-04-03 12:45 | NUR ---
DC SUMMARY: CHRONIC CONDITIONS AND NEED FOR WOUND CARE NOTED BARRIER TO DC RETURN TO SNF WHEN STABLE ADD:TBD. AWAITING I&D NO ACTIONS REQUIRED AT THIS TIME
--- NOTE | 2025-04-03 13:59 | NUR ---
IN PATIENT ROOM TO CLEAR LUNCH TRAY. PT TEETH BRUSHED AND MOUTH RINSED. PT COMPLAINING OF PAIN TO THE LOWER BILATTERAL LEGS WHERE HER WOUNDS ARE LOCATED. RATES PAIN 10/10 AND REQUESTING PAIN PILL. RN NOTIFIED.
--- NOTE | 2025-04-03 15:18 | NUR ---
PT PLACED ON BEDPAN, HAD MED SOFT BM, PT CLEANED UP AND FRESH ATTENDS IN PLACE. PT WAS ABLE TO ROLL FROM SIDE TO SIDE. 1516 PT C/O NAUSEA AT THIS TIME AND PROVIDED BAG IF SHE NEEDS IT. PT ASKED FOR PAIN MEDICATION, MUSCLE RELAXENT AND COUGH MEDICINE. EXPLAINED THAT I WILL ASK THE DR AND SEE WHAT HE HAS TO SAY ABOUT THIS.
--- NOTE | 2025-04-03 15:42 | NUR ---
PT CONTIOUES TO SIT UP IN BED AND TALKING WITH FAMILY.
--- NOTE | 2025-04-03 16:54 | NUR ---
PATIENT ON BED LOPEZ AGAIN EARLIER AND HAVING MORE BMs. PT DOES BECOME SHORT OF BREATH WITH ACTIVITY. HEART RATE IS HIGHER THAN IT WAS EARLIER, AND MONITOR ALARMS VTACH, HOWEVER PATIENT HAS A KNOWN LEFT BUNDLE BRANCH BLOCK AND REMAINS IN AFIB WITH SOME PACED BEATS. WHEN HEART RATE IS ELEVATED, MONITOR ALARMS VTACH. PT DOES ENDORSE THAT SHE CAN FEEL WHEN HER HEART IS RACING AND IS WORN OUT FROM THE ACTIVITY OF TURNING SIDE TO SIDE FOR ATTENDS TO BE CHANGED. PT DOES HAVE BOUNDING PULSES IN NECK VEINS VISIBLE EASILY FROM AFAR. EDEMA REMAINS IN LOWER LEGS, 2+ BUT WRINKLING IS EVIDENT. PT'S SON SAMMIE LEAVES AT THIS TIME AND STATES HE WILL RETURN TOMORROW TO SEE HER. BLOOD PRESSURES ARE ALSO A LITTLE ON THE LOWER SIDE WITH THE MOST RECENT BP 91/63. WILL CONTINUE TO MONITOR.
--- NOTE | 2025-04-03 17:11 | NUR ---
DR. HARRINGTON CALLED ON THIS PATIENT AND DISCUSSED HER INCREASING SHORTNESS OF BREATH, INCREASED JVD, AND INCREASED HEART RATE. ORDER REC'D TO GIVE 10 MG IV LASIX AND GET A CHEST XRAY. ORDERS PLACED BY Giana SOMMER RN.
[2025-04-03] MEDS ORDERED: FUROSEMIDE 20 MG/2 ML VIAL IV ONE ×2 (17:15→19:00)
--- NOTE | 2025-04-03 17:18 | NUR ---
CXR BEING DONE AT THIS TIME. PT STILL SITTING UP IN BED AND C/O FEELING SHORT OF BREATH. TOTAL URINE OUTPUT TODAY HAS BEEN LOWER AND CONCENTRATED.
[2025-04-03 18:21] LABS: GLOMERULAR FILTRATION RATE,EST 41.0 mL/min (>60); UREA NITROGEN 17.0 mg/dL (7-18)
--- NOTE | 2025-04-03 18:50 | NUR ---
CALLED , TO UPDATE ON PATIENT CXRAY AND LABS, PATIENT CONTINUES TO FEEL VERY SHORT OF BREATH WITH INCREASE WORK OF BREATHING OXYGEN SATURATION 94% AND ABOVE ON ROOM AIR. NEW ORDER GIVEN.
[2025-04-03 18:52] LABS: BLOOD/HGB, URINE LARGE (Negative); KETONE, URINE NEGATIVE (Negative); LEUK ESTERASE, URINE NEGATIVE (negative); NITRITE, URINE NEGATIVE (negative)
[2025-04-03 19:00] LABS: BACTERIA, URINE NONE SEEN /hpf (negative); CASTS, URINE NONE SEEN \\lpf; CRYSTALS, URINE NONE SEEN (0-1+); EPITHELIAL CELLS, URINE 0 /lpf (0-1+)
[2025-04-03] MEDS ORDERED: ALBUMIN HUMAN 25% 100 ML BTL IV ONE (19:00)
[2025-04-03 19:01] LABS: REFLEX CULTURE, URINE No (No)
--- NOTE | 2025-04-03 20:45 | NUR ---
Pt appeared agitated and requested assistance with call light/positioning/a presence in room. Assured Pt of ability to call if needed for assistance. No other needs expressed by Pt. Call light left in reach.
--- NOTE | 2025-04-03 23:00 | NUR ---
Pt alert and oriented x3- Irritable and confused- notified, benadryl and seroquel ordered
[2025-04-03] MEDS ORDERED: QUETIAPINE FUMARATE 25 MG TAB PO SCH (23:37)
[2025-04-04] VITALS (21 sets, daily range): BP systolic 82–135; BP diastolic 47–95
--- NOTE | 2025-04-04 00:45 | NUR ---
Pt requested to use the bedpan for a BM-Assisted Pt with RN to place Pt on bedpan. Pt had a smear BM-repositioned Pt. Assisted RN with replacing coccyx dressing. Applied barrier cream. No other needs expressed by Pt. Call light left in reach. Bed lowered and locked.
--- NOTE | 2025-04-04 01:10 | NUR ---
Pt requested water-reminded Pt of NPO status and provided lemon glycerin swabs instead. Sat Pt up in bed as requested. No other needs expressed by Pt. Call light left in reach. Bed lowered and locked.
--- NOTE | 2025-04-04 03:34 | NUR ---
PATIENT REPOSITIONED TO THE LEFT SIDE WITH TWO PILLOWS. PATIENT REQUESTED GLASS OFF AND BIPAP. GLASSES AT BEDSIDE AND BIPAP IN PLACE. PATIENT DENIES FURTHER NEEDS
--- NOTE | 2025-04-04 04:15 | NUR ---
Pt called for multiple requests already completed and wished to conversate about how to care for her. Sat in room with Pt and reassured of all care being done and her need for rest. Stayed in room for 30 minutes observing and assisting Pt with repositioning PRN-Pt does not call appropriately and requests assistance when not needed repeatedly. Example: Pt states,"Hey, come here! When I go to sleep, you are going to put me to bed and you go to sleep. What do I do with my feet? When is your birthday?" No other needs noted by Pt. Call light left in reach. Bed locked and lowered. No other needs expressed by Pt. Call light left in reach. Bed locked and lowered.
--- NOTE | 2025-04-04 05:53 | NUR ---
Pt has not slept- Numerous attempts to reposition, dim lights, quiet room, meds given- UO 275 for the night and concentrated- Dr notified and labs ordered
[2025-04-04 06:09] LABS: BASOPHILS 0.2 % (0.1-1.2); EOSINOPHILS 0 % (0.7-5.8); LYMPHOCYTES 17.1 % (19.3-51.7); MCH 21.0 PG (25.6-32.2); MCHC 30.6 g/dL (32.2-35.5); MCV 68.7 fL (79.4-94.8); MONOCYTES 5.6 % (4.7-12.5); NEUTROPHILS 76.4 % (34.0-71.1); RBC 5.47 M/uL (3.93-5.22)
[2025-04-04 06:24] LABS: GLOMERULAR FILTRATION RATE,EST 41.0 mL/min (>60); SMEAR REVIEW BLOOD SEE COMMENTS; UREA NITROGEN 17.0 mg/dL (7-18)
--- NOTE | 2025-04-04 07:15 | NUR ---
HANDOFF REPORT RECEIVED FROM LADONNA MILLER.ALL QUESTIONS ANSWERED. PATIENT SITTING UP IN BED. NO EVIDENCE OF ACUTE DISTRESS NOTED. CALL LIGHT IN REACH
--- NOTE | 2025-04-04 08:00 | NUR ---
PATIENT ASSESSMENT COMPLETE. PATIENT ALERT AND ANSWERS ORIENTATION QUESTIONS APPROPRIATELY. PATIENT IRRITABLE AT TIMES. PATIENT REPORTS SOB. RR EVEN AND UNLABORED. HR 120'S. VITAL SIGNS STABLE. PATIENT REPOSITIONED IN BED. FULLER INTACT AND WNL. IV SITES INTACT, SL, AND WNL. IV SITES WRAPPED WITH GAUZE. PATIENT UPDATED ON POC. NO NEEDS IDENTIFIED. BED ALARM ON. CALL LIGHT IN REACH.
--- NOTE | 2025-04-04 09:00 | NUR ---
PATIENT ASSISTED UP TO BSC. PATIENT HAS X1 BM. BED BATH COMPLETE. SKIN CARE AND ZENA CARE COMPLETE. BARRIER CREAM APPLIED. MD NOTIFIED OF SCANT AMOUNT OF BLOOD NOTED WHILE CLEANING PATIENTS BUTTOCKS AND RECTAL AREA. PATIENT UP TO CHAIR. CHAIR ALARM IN PLACE. BLE ELVATED ON CHAIR REST. SON IN ROOM. SON UPDATED ON PATIENT STATUS AND POC. IV SITES INTACT AND WNL. CALL LIGHT IN REACH. VITAL SIGNS STABLE.
--- NOTE | 2025-04-04 09:30 | NUR ---
UPDATES FAXED TO [facility].
--- NOTE | 2025-04-04 09:57 | NUR ---
ALERT AND ORIENTED IN RECLINER. SON IN ROOM. UPDATED HER THAT [facility] NOT YET ACCEPTED HER FOR SNF. VERBALIZES UNDERSTANDING. NOT YET READY FOR DC AT THIS TIME.
[2025-04-04] MEDS ORDERED: FUROSEMIDE 20 MG/2 ML VIAL IV ONE (10:00)
[2025-04-04] MEDS ORDERED: METOPROLOL SUCCINATE 25 MG TABCR PO SCH (10:00)
--- NOTE | 2025-04-04 10:43 | NUR ---
MEDICATIONS ADMINISTERED PER EMAR. PATIENT NOW RESTING UP IN THE CHAIR WITH EYES CLOSED. RR EVEN AND UNLABORED. SPO2 94% ON RA. CALL LIGHT IN REACH. CHAIR ALARM ON.
--- NOTE | 2025-04-04 10:58 | NUR ---
PATIENT REPOSITIONED IN CHAIR. WARM BLANKET PROVIDED. CHAIR ALARM ON. CALL LIGHT IN REACH.
--- NOTE | 2025-04-04 11:19 | NUR ---
PATIENT REMAINS SITTING UP IN BED. NO EVIDENCE OF ACUTE DISTRESS NOTED. CALL LIGHT IN REACH. CHAIR ALARM ON
--- NOTE | 2025-04-04 12:10 | NUR ---
PATIENT ASSISTED BACK TO BED FROM CHAIR. PATIENT WEAK AND UNABLE TO ASSIST STAFF WITH TRANSFER AT THIS TIME. PATIENT ASSISTED TO BED STAND PIVOT 2 PERSON HEAVY ASSIST. PATIENT REPOSITIONED AND IN R. LATERAL RECUMBENT. PATIENT DRIFTS BACK TO SLEEP. VITAL SIGNS STABLE. FULLER INTACT AND WNL. IV SITES INTACT AND WNL. NO EVIDENCE OF ACUTE DISTRESS NOTED. CALL LIGHT IN REACH. BED ALARM ON.
--- NOTE | 2025-04-04 12:50 | CONS ---
[facility] [address] [place], [place] [address] Signed DATE OF CONSULTATION: 04/02/2025 REQUESTING PHYSICIAN: Dr. Drummond. PROBLEM: Right and left posterior heel decubiti and right posterolateral calf decubiti, possible relationship to recent septic episodes. HISTORY: This 89-year-old woman lives in the [facility] with complaints of shortness of breath and presented to the emergency room where she was found to have hypoxemia. She has underlying congestive heart failure. She is noted to have heel decubiti bilaterally as well as a right posterior calf similar lesion. She is admitted related to her hypoxemia for diuresis and close monitoring. Evaluation by Dr. Drummond showed the lesions on her lower extremities, and concern was maintained for possible source of infection. Notably, her white count was elevated to 14.2. Hematocrit was at 47.2. She is negative for serology for upper respiratory infections, and her electrolytes were reasonably normal except for a creatinine of 1.64. She is considered to have sepsis as defined by elevated white count, hypertension, and tachycardia, and blood cultures were obtained. REVIEW OF SYSTEMS: The patient denies any shortness of breath or chest pain at this time. She is in the intensive care unit currently. Evaluation was undertaken in the presence of Dr. Drummond, it is noted. PHYSICAL EXAMINATION: GENERAL: Elderly white woman who is quite frail with BMI of 27.9. HEENT: Trachea is midline. CHEST: Shows no evidence of tachypnea at this time. HEART: Regular. ABDOMEN: Nondistended, flat, nontender. LOWER EXTREMITIES: Show bandages on the posterior heel areas, which were removed showing violaceous decubiti of the dependent portion of the heel. There is no sign of undrained purulence, only compromised skin. In the right posterior calf, there was an area a bit more full but with a similar appearance. There is no evidence of lymphangitis specifically. She does have bilateral lower extremity edema which is probably improved compared to the past as the skin is somewhat wrinkled and although somewhat edematous, not nearly as profoundly edematous as it might be. ASSESSMENT: Electronically Signed By: FRANSISCO GONZALEZ MD 04/04/25 1250 PATIENT NAME: ROBBIN OJEDA CONSULTATION DATE OF : 39 REPORT #: [id number] PHYSICIAN: FRANSISCO GONZALEZ MD PCP: DIVINE COOPER MD REPORT IS CONFIDENTIAL AND NOT TO BE RELEASED WITHOUT AUTHORIZATION [facility] [address] [place], [place] [address] Signed These areas did not look severely and acutely problematic and source of infection in my opinion at this time, however, in particular the calf lesion likely should have debridement as should the heel areas. Wound VAC dressings may be required under the circumstances. The patient has underlying significant congestive heart failure and other advanced medical problems, for which operative interventions must be taken with caution. As the patient has eaten today, consideration might be made for debridement tomorrow. We will review this further tomorrow. MD HERBERTH Lee/ROGERS /[id number] cc: Dr. Drummond Copies: ~ Electronically Signed By: FRANSISCO GONZALEZ MD 04/04/25 1250 PATIENT NAME: SEGUNDO BOWENROBBIN CONSULTATION DATE OF : 39 REPORT #: [id number] PHYSICIAN: FRANSISCO GONZALEZ MD PCP: DIVINE COOPER MD REPORT IS CONFIDENTIAL AND NOT TO BE RELEASED WITHOUT AUTHORIZATION
--- NOTE | 2025-04-04 13:04 | NUR ---
PATIENT RESTING IN BED. RR EVEN AND UNLABORED. SPO2 97% ON RA. HR 80'S-90'S. BED ALARM ON. CALL LIGHT IN REACH
--- NOTE | 2025-04-04 13:25 | NUR ---
MD AT BEDSIDE TO ROUND. MD IN ROOM TO ASSESS BLE WOUNDS. NEW ORDER RECEIVED TO HAVE ALLEVYN PLACED ON LLE WOUNDS. X3 ALLEVYNS PLACED PER MD. PATIENT OK TO EAT PATIENT WILL NOT HAVE ANY PROCEDURES TODAY. PATIENT RESTING IN BED W/ EYES CLOSED. RR EVEN AND UNLABORED. CALL LIGHT IN REACH. BED ALARM ON
--- NOTE | 2025-04-04 14:17 | NUR ---
PATIENT SAT UP IN BED BY THIS RN. PATIENT TAKES FEW SIPS OF APPLE JUICE. PATIENT DISORIENTED TO PLACE. THIS RN REORIENTS PATIENT TO PLACE AT THIS TIME. CALL LIGHT IN REACH. BED ALARM ON.
--- NOTE | 2025-04-04 15:06 | NUR ---
PATIENT ASSISTED UP TO BSC. 2 PA W FWW. ZENA AND FULLER CARE COMPLETE. NEW ALLEVYN PLACED ON L. BUTTOCK. BARRIER CREAM APPLIED. NEW BRIEF PLACED. PATIENT BACK TO BED. PATIENT SAT UP IN HIGH FOWLERS. PATIENT PROVIDED SNACK AND PO FLUIDS. PATIENT SITTING UP IN BED CONVERSING WITH SON. NO FURTHER NEEDS IDENTIFIED, VITAL SIGNS STABLE. CALL LIGHT IN REACH. BED ALARM ON.
--- NOTE | 2025-04-04 16:45 | NUR ---
PATIENT SITTING UP IN BED. BRIEF CLEAN AND DRY. RR EVEN AND UNLABORED. PATIENT NOTED TO HAVE MOIST PRODUCTIVE COUGH. VITAL SIGNS STABLE. PATIENT SAT UP IN BED IN HIGH FOWLERS FOR MEAL. THIS RN REMAINS IN ROOM
--- NOTE | 2025-04-04 18:02 | NUR ---
patient resting in bed with eyes closed. rr even and unlabored. call light in reach
--- NOTE | 2025-04-04 19:04 | NUR ---
PATIENT RESTING IN BED. RR EVEN AND UNLABORED. VITALS STABLE. BED ALARM ON. CALL LIGHT IN REACH
--- NOTE | 2025-04-04 19:45 | NUR ---
PATIENT ON BED LOPEZ TO HAVE BOWEL MOVEMENT. PATIENT IS ALERT AND ORIENTED WITH SOME DROWSINESS. MONI LEG PAIN /. LEGS REPOSITIONED. PATIENT HAS FULLER IN PLACE DRAINING CONCENTRATED URINE. ASSESSMENT COMPLETE AND EVENING MEDICATIONS GIVEN PER JUN.
--- NOTE | 2025-04-04 20:11 | NUR ---
REQUEST HOME DOSE OF GABAPENTIN TO BE RESTARTED; REVIEWED DOSE WITH . VERIFIED VIA REPEAT BACK.
[2025-04-04] MEDS ORDERED: MELATONIN 3 MG TAB PO PRN (20:15)
[2025-04-04] MEDS ORDERED: GABAPENTIN 400 MG CAP PO SCH (21:00)
[2025-04-04] MEDS ORDERED: QUETIAPINE FUMARATE 25 MG TAB PO SCH (21:00)
--- NOTE | 2025-04-04 22:17 | NUR ---
PATIENT RESTING WITH EYES CLOSED AND HOB ELEVATED. RESPIRATIONS EVEN AND UNLABORED. CALL LIGHT AND PERSONAL BELONGINGS ARE WITHIN REACH. ALINA KLINE.
[2025-04-05] VITALS (23 sets, daily range): BP systolic 77–104; BP diastolic 38–81
--- NOTE | 2025-04-05 03:09 | NUR ---
PATIENT'S O2 SAT DROPPING BELOW 80S, HOME CPAP PUT ON. PATIENT REMAINED WITH EYES CLOSED.
[2025-04-05] MEDS ORDERED: IBLOOD GLUCOSE TEST STRIP 1 EA TEST XX PRN (04:00)
[2025-04-05] MEDS ORDERED: GLUCAGON,HUMAN RECOMBINANT 1 MG/ML VIAL SUB-Q PRN (04:00)
[2025-04-05] MEDS ORDERED: DEXTROSE 5% 1,000 ML IV PRN (04:00)
[2025-04-05] MEDS ORDERED: DEXTROSE 50% 50 ML SYR IV PRN ×2 (04:00)
--- NOTE | 2025-04-05 04:18 | NUR ---
PATIENT'S BLOOD SUGAR WAS 70, PATIENT REMAINED DROWSY. 25ML OF D50% GIVEN PER HYPOGLYCEMIA PROTOCOL. PATIENT RESTING WITH EYES CLOSED, RESPIRATIONS EVEN AND UNLABORED. HOME CPAP IN PLACE.
--- NOTE | 2025-04-05 04:40 | NUR ---
PATIENT'S BLOOD SUGAR NOW UP TO 145. PATIENT REMAINS RESTING WITH EYES CLOSED WITH EVEN AND UNLABORED RESPIRATIONS. OCCASIONAL MOIST COUGH PRESENT
[2025-04-05 05:22] LABS: BASOPHILS 0.7 % (0.1-1.2); EOSINOPHILS 0.4 % (0.7-5.8); LYMPHOCYTES 25.5 % (19.3-51.7); MCH 20.6 PG (25.6-32.2); MCHC 29.7 g/dL (32.2-35.5); MCV 69.4 fL (79.4-94.8); MONOCYTES 6.6 % (4.7-12.5); NEUTROPHILS 66.2 % (34.0-71.1); RBC 5.10 M/uL (3.93-5.22)
[2025-04-05 05:31] LABS: SMEAR REVIEW BLOOD SEE COMMENTS
[2025-04-05 05:45] LABS: GLOMERULAR FILTRATION RATE,EST 53.0 mL/min (>60); UREA NITROGEN 14.0 mg/dL (7-18)
--- NOTE | 2025-04-05 06:11 | NUR ---
CALLED DR. HARRINGTON TO UPDATE HIM ON PATIENT'S HYPOTENSION THROUGHOUT THE NIGHT, THE PATIENT'S HYPOGLYCEMIA AND POTASSIUM LEVEL. POTASSIUM REPLACEMENT ORDERED PER DOCTORS ORDER.
[2025-04-05] MEDS ORDERED: POTASSIUM CHLORIDE 10 MEQ TABCR PO ONE (06:15)
[2025-04-05] MEDS ORDERED: POTASSIUM CHLORIDE 10 MEQ/100 ML BAG IV SCH (07:00)
--- NOTE | 2025-04-05 07:20 | NUR ---
HANDOFF REPORT RECEIVED FROM POLISHER NUMERAL RN. ALL QUESTIONS ANSWERED. NO EVIDENCE OF ACUTE DISTRESS NOTED. CALL LIGHT IN REACH. BED ALARM ON
[2025-04-05 07:56] LABS: SMEAR REVIEW BLOOD SEE COMMENTS
[2025-04-05] MEDS ORDERED: POTASSIUM CHLORIDE 40 MEQ in DEXTROSE 5% 250 ML IV SCH (08:00)
--- NOTE | 2025-04-05 08:20 | NUR ---
PATIENT ASSESSMENT COMPLETE. RR EVEN AND UNLABORED. PATIENT DROWSY BUT RESPONDS TO VERBAL STIMULI. PATIENT RESPONDS APPROPRIATELY TO ORIENTATION QUESTIONS. IV SITES INTACT AND WNL. BOWEL TONES ACTIVE. PATIENT DENIES NAUSEA OR VOMITING. FULLER INTACT AND WNL. BLE WOUNDS COVERED WITH ALLEVYNS. THIS RN REMAINS IN ROOM
--- NOTE | 2025-04-05 10:00 | NUR ---
PATIENT SITTING UP IN BED. PATIENT EATS MEAL AND CONVERSES WITH SON. NO EVIDENCE OF ACUTE DISTRESS NOTED. CALL LIGHT IN REACH. BED ALARM ON
--- NOTE | 2025-04-05 11:26 | NUR ---
UPDATES SENT TO [facility]. PENDING ACCEPTANCE.
--- NOTE | 2025-04-05 13:03 | NUR ---
PATIENT SAT UP IN BED IN HIGH FOWLERS. PATIENT ASSISTED WITH MEAL. IV SITES INTACT AND WNL. VITAL SIGNS STABLE. IV K+ INFUSING PER EMAR. THIS RN AND ABDIAS DOUGHERTY REMAIN IN ROOM. PATIENT RESPONDS APPROPRIATE TO VERBAL COMMANDS
--- NOTE | 2025-04-05 13:21 | NUR ---
patient assisted onto bedpan. patient unsuccessful in having bm. patient off bedpan. patient sat up in bed. patient eating meal. no further needs identified. call light in reach. bed alarm on.
--- NOTE | 2025-04-05 15:00 | NUR ---
PATIENT VISITING WITH FRIEND. NO EVIDENCE OF ACUTE DISTRESS NOTED. CALL LIGHT IN REACH
[2025-04-05] MEDS ORDERED: FUROSEMIDE 20 MG/2 ML VIAL IV ONE ×2 (16:15→18:45)
--- NOTE | 2025-04-05 16:21 | NUR ---
PATIENT REPORTING INCREASED SOB WHILE UP IN CHAIR. PATIENT EDUCATED ON FOCUSED BREATHING TECHNIQUE. 3 L O2 APPLIED D/T O2 SATURATION OF 87%. IV LASIX AND PO METOPROLOL ADMINISTERED PER MD ORDER. VITAL SIGNS STABLE. URINE APPEARS MORE CONCENTRATED AND NOTED TO HAVE SEDIMENT IN URINE AT THIS TIME. THIS RN AND ABDIAS RN REMAIN IN ROOM. VITAL SIGNS STABLE. CALL LIGHT IN REACH
--- NOTE | 2025-04-05 17:01 | NUR ---
MD AT BEDSIDE. MD UPDATED ON PATIENT STATUS. MD TO PUT IN NEW ORDERS. RT AT BEDSIDE
--- NOTE | 2025-04-05 17:11 | NUR ---
LAB IN ROOM
--- NOTE | 2025-04-05 17:14 | NUR ---
PATIENT SITTING UP IN CHAIR ON HOME CPAP. VITAL SIGNS STABLE. THIS RN REMAINS IN ROOM. PATIENT ABLE TO ANSWER QUESTIONS APPROPRIATELY
[2025-04-05 17:16] LABS: BASOPHILS 0.8 % (0.1-1.2); EOSINOPHILS 0.4 % (0.7-5.8); LYMPHOCYTES 22.3 % (19.3-51.7); MCH 20.8 PG (25.6-32.2); MCHC 27.9 g/dL (32.2-35.5); MONOCYTES 6.7 % (4.7-12.5); NEUTROPHILS 69.0 % (34.0-71.1); RBC 6.31 M/uL (3.93-5.22)
[2025-04-05 17:21] LABS: MCV 74.5 fL (79.4-94.8)
--- NOTE | 2025-04-05 18:06 | NUR ---
PATIENT BACK TO BED VIA PATRICIA. PATIENT REMAINS ON CPAP. MD AT BEDSIDE AND PATIENT UPDATED ON POC. NO FURTHER NEEDS IDENTIFIED. CALL LIGHT IN REACH
[2025-04-05 18:12] LABS: ALT (SGPT) 176.0 U/L (14-59); AST (SGOT) 161.0 U/L (15-37); GLOMERULAR FILTRATION RATE,EST 51.0 mL/min (>60); PROTEIN, TOTAL 5.9 g/dL (6.4-8.2); UREA NITROGEN 13.0 mg/dL (7-18)
[2025-04-05] MEDS ORDERED: Calcium Gluconate in NS 1,000 MG/50 ML BAG IV ONE (18:45)
[2025-04-05 22:08] LABS: ALT (SGPT) 151.0 U/L (14-59); AST (SGOT) 125.0 U/L (15-37); GLOMERULAR FILTRATION RATE,EST 49.0 mL/min (>60); PROTEIN, TOTAL 5.4 g/dL (6.4-8.2); UREA NITROGEN 13.0 mg/dL (7-18)
--- NOTE | 2025-04-05 22:28 | NUR ---
CALLED DR. GAN TO UPDATE HIM ON THE PATIENT'S URINE OUTPUT, POTASSIUM LEVEL, AND HYPOTENSION. DR. GAN COMMUNICATED PLANS TO COME LOOK AT THE PATIENT IN A FEW MINUTES. 2100 PO SILVINO HELD PER MD.
--- NOTE | 2025-04-05 23:52 | NUR ---
JIMMY HOSE PLACED ON PATIENT'S LEGS BILATERALLY. PATIENT TOLERATED OK. PATIENT HAS HOME CPAP IN PLACE WIT 2L O2.
[2025-04-06] VITALS (20 sets, daily range): BP systolic 78–104; BP diastolic 50–81
--- NOTE | 2025-04-06 00:53 | NUR ---
PATIENT REQUESTED ANOTHER PILLOW TO PUT UNDER HER LEGS TO KEEP HER HEELS FROM TOUCHING THE BED. PATIENT DENIES FURTHER NEEDS
[2025-04-06 05:40] LABS: BASOPHILS 0.8 % (0.1-1.2); EOSINOPHILS 0.6 % (0.7-5.8); LYMPHOCYTES 29.2 % (19.3-51.7); MCH 20.6 PG (25.6-32.2); MCHC 29.3 g/dL (32.2-35.5); MCV 70.2 fL (79.4-94.8); MONOCYTES 7.4 % (4.7-12.5); NEUTROPHILS 61.2 % (34.0-71.1); RBC 5.68 M/uL (3.93-5.22)
[2025-04-06 06:05] LABS: ALT (SGPT) 136.0 U/L (14-59); AST (SGOT) 98.0 U/L (15-37); GLOMERULAR FILTRATION RATE,EST 55.0 mL/min (>60); PHOSPHORUS, INORGANIC 2.2 mg/dL (2.5-4.9); PROTEIN, TOTAL 5.3 g/dL (6.4-8.2); UREA NITROGEN 13.0 mg/dL (7-18)
[2025-04-06 06:27] LABS: INR 4.05 (0.80-1.30); PROTIME 38.2 Sec (11.2-14.2)
--- NOTE | 2025-04-06 07:15 | NUR ---
HANDOFF REPORT RECEIVED FROM PANEL COVERER RN. ALL QUESTIONS ANSWERED. NO EVIDENCE OF ACUTE DISTRESS NOTED. PATIENT ON HOME CPAP. CALL LIGHT IN REACH.
--- NOTE | 2025-04-06 07:45 | NUR ---
DAMARIS MARTINEZ REPORTS CBG RESULT TO ABDIAS DOUGHERTY. ABDIAS RN AT BEDSIDE PROVIDING PATIENT SIPS OF JUICE. PATIENT ALERT AND ORIENTED AND ABLE TO CONVERSE WITH CERTIFIED PROFESSIONAL CONTROLLER. THIS RN AT BEDSIDE. PATIENT DENIES FURTHER NEEDS. CALL LIGHT IN REACH
--- NOTE | 2025-04-06 08:17 | NUR ---
PATIENT ASSESSMENT COMPLETE. PATIENT ALERT AND ORIENTED. NO EVIDENCE OF ACUTE DISTRESS NOTED. VITAL SIGNS STABLE. RR EVEN AND UNLABORED. PATIENT ON 4L NC. PATIENT DENIES NAUSEA, SOB, OR PAIN AT THIS TIME. FULLER INTACT AND WNL. IV SITES INTACT AND WNL. BLE ELAVTED ON PILLOWS. BLE WOUNDS COVERED WITH ALLEVYNS. THIS RN REMAINS IN ROOM
--- NOTE | 2025-04-06 08:27 | NUR ---
US AT BEDSIDE
--- NOTE | 2025-04-06 09:30 | NUR ---
PATIENT ASSISTED UP TO CHAIR 2 PA W FWW. BEDBATH AND FULLER CARE COMPLETE. LINEN CHANGE COMPLETE. PATIENT SITTING UP IN CHAIR EATING MEAL. DAMARIS MARTINEZ IN ROOM. NO EVIDENCE OF ACUTE DISTRESS NOTED. CALL LIGHT IN REACH.
--- NOTE | 2025-04-06 10:55 | NUR ---
INTO SEE PATIENT. ATTEMPTING TO GET BED AT [facility] BUT PATIENT KNOWS SHE MAY HAVE TO GO BACK TO [facility]. AGREEABLE. CHART NOTES FAXED TO [facility] AND [facility].
[2025-04-06] MEDS ORDERED: BUMETANIDE 1 MG TAB PO ONE ×2 (11:15→15:45)
--- NOTE | 2025-04-06 11:18 | NUR ---
DC REVIEW: NO BARRIER TO DC NOTED RETURN TO SNF WHEN STABLE ADD:1-2 DAYS DC REVIEW 04/09/25
--- NOTE | 2025-04-06 12:10 | NUR ---
patient sitting up in chair eating lunch. medication administered per emar. patient remains alert and oriented. patient denies sob, nausea, or pain at this time. keri hose applied to ble. vital signs stable. lira intact and wnl. urine remains concentrated. no further needs identified.call light in reach
--- NOTE | 2025-04-06 13:27 | NUR ---
patient sitting up in chair conversing with visitors. no evidence of acute distress noted. call light in reach
--- NOTE | 2025-04-06 14:39 | NUR ---
patient sitting up in chair. no evidence of acute distress noted. call light in reach
--- NOTE | 2025-04-06 16:15 | NUR ---
PATIENT PROVIDED SNACK AND FRESH ICE WATER. VITAL SIGNS STABLE. PATIENT REMAINS ON 4 L NC. SPO2 94%. PATIENT TOLERATING WELL. PATIENT REPOSITIONED IN CHAIR. JIMMY QUINTANILLA ASSESSED AND INTACT. PATIENT DENIES SOB, NAUSEA, OR PAIN AT THIS TIME. CALL LIGHT IN REACH.
[2025-04-06] MEDS ORDERED: METOPROLOL SUCCINATE 25 MG TABCR PO SCH (17:45)
--- NOTE | 2025-04-06 18:20 | NUR ---
PATIENT ASSISTED BACK TO BED 2 PA W/ FWW. ZENA CARE COMPLETE. NEW ALLEVYN PLACED ON L. GLUTE. BARRIER CREAM APPLIED. NEW BRIEF PLACED. PATIENT REPOSITIONED IN BED. X3 ALLEVYNS PLACED ON R. LOWER EXTREMITY. JIMMY HOSE REPOSITIONED ON BLE. PATIENT PROVIDED ICE WATER. PATIENT SAT UP IN BED. NO FURTHER NEEDS IDENTIFIED. CALL LIGHT IN REACH
--- NOTE | 2025-04-06 18:56 | NUR ---
PATIENT SITTING UP IN BED RESTING. RR EVEN AND UNLABORED. NO EVIDENCE OF ACUTE DISTRESS NOTED. BED ALARM ON. CALL LIGHT IN REACH
--- NOTE | 2025-04-06 19:26 | EKG ---
[facility] [address] [place] [address] Signed Suspect unspecified pacemaker failure Atrial fibrillation Left axis deviation Left bundle branch block Abnormal ECG When compared with ECG of 26-MAR-2025 21:34, T wave inversion now evident in Anterior leads Confirmed by Terrence Gan MD () on 04/06/2025 7:26:26 PM Electronically Signed By: TERRENCE GAN MD 04/06/251925 PATIENT NAME: ROBBIN OJEDA Electrocardiogram DATE OF : 39 PHYSICIAN: TERRENCE GAN MD REPORT #: [id number] REPORT IS CONFIDENTIAL AND NOT TO BE RELEASED WITHOUT AUTHORIZATION
--- NOTE | 2025-04-06 20:00 | NUR ---
PATIENT RESTING IN BED, ROUNDING, SHE APPEARS TO BE TRYING TO PUSH THE CALL LIGHT, PATIENT ALERT TO THIS RN TO VOICE, PATIENT REPORTS FEELING COLD AND WOULD LIKE THE ROOM TEMP TURNED UP, THIS IS DOWN AND THEN WARM BLANKET PROVIDED. PATIENT HAS NO OTHER CONCERNS OR REQUESTS AT THIS TIME, DISCUSSED THE CARE PLAN FOR TONIGHT. PATIENT COOPERATIVE WITH CARE PLAN AT THIS TIME.
--- NOTE | 2025-04-06 22:40 | NUR ---
ROUNDING PATIENT REPORTS UNABLE TO PUSH STANDARD NURSE CALL LIGHT REMOTE, PUSH BUTTON REMOTE REPLACED, PATIENT DEMONSTRATED ABLE TO PUSH NEW CALL LIGHT BUTTON WITH EASE. PATIENT REPORTS SHE FEELS SHE HAS HAD A BM, DEPENDS CHECKED, STOOL NOTED, PATIENT TURNED CLEANED AND BARRIER CREAM RE-APPLIED. PATIENT REPOSITIONED, SHE IS NOW SITTING UP IN BED WRITING WITH PAPER AND PEN, SHE HAS NO FURTHER NEEDS AT THIS TIME PER HER REPORT.
[2025-04-07] VITALS (13 sets, daily range): BP systolic 78–120; BP diastolic 54–80
--- NOTE | 2025-04-07 00:06 | NUR ---
PATIENT AGREED TO HAVE HOME CPAP PLACED AT THIS TIME, ASSISTED TO PUT HER PAPERS AND STAMPS INTO PLASTIC BOX AT BEDSIDE TABLE, SHE HAS BEEN WORKING ON HER [employer] LIST AND CARDS. SHE REPORTS NO PAIN AT THIS TIME AT REST. SHE HAS BEEN COOPERATIVE WITH ALL CARE.
[2025-04-07 05:26] LABS: BASOPHILS 1.0 % (0.1-1.2); EOSINOPHILS 1.6 % (0.7-5.8); LYMPHOCYTES 18.9 % (19.3-51.7); MCH 20.9 PG (25.6-32.2); MCHC 29.6 g/dL (32.2-35.5); MCV 70.8 fL (79.4-94.8); MONOCYTES 6.0 % (4.7-12.5); NEUTROPHILS 71.4 % (34.0-71.1); RBC 6.16 M/uL (3.93-5.22)
[2025-04-07 05:44] LABS: INR 1.59 (0.80-1.30); PROTIME 17.9 Sec (11.2-14.2)
[2025-04-07 05:51] LABS: ALT (SGPT) 123.0 U/L (14-59); AST (SGOT) 71.0 U/L (15-37); GLOMERULAR FILTRATION RATE,EST 59.0 mL/min (>60); PROTEIN, TOTAL 6.2 g/dL (6.4-8.2); UREA NITROGEN 12.0 mg/dL (7-18)
--- NOTE | 2025-04-07 05:56 | NUR ---
PATIENT ALLOWED PLACEMENT OF CPAP AT 0030, SHE HAS SLEPT INTERMITTENLY, SHE HAS BEEN RESTLESS, WAKING FREQUESTLY WITH NEED FOR PILLOWS TO BE RE-ADJUSTED, SHE HAS BEEN COOPERATIVE WITH CARE PLAN, SHE DID REMOVE CPAP TWICE IN NIGHT, NOTED BY STAFF AND PLACED BACK ON, SHE HAS DENIED PAIN OVER SHIFT WHILE AT REST. SHE CONTINUES HAVE A COUGH, SHE VOIDED 475ML URINE JOCELYN/TEA COLORED. SHE HAS BEEN INTERMITTENLY FORGETFUL/CONFUSED, RE-ORIENTS WELL.
--- NOTE | 2025-04-07 07:45 | NUR ---
REPORT RECIVED FROM IT SYSTEMS ANALYST RN. PER REPORT PATIENT HAD A GOOD NIGHT OVER NIGHT. PATIENT CALLS APPROPRIATELY. PATIENT AWAKE THIS AM. DENIES ANY NEEDS AT THIS TIME. CALL LIGHT ON LAP. JIMMY QUINTANILLA ON.
--- NOTE | 2025-04-07 08:14 | NUR ---
PATIENT SITTING UP IN BED AND READY FOR BREAKFAST. PREPPED PATIENTS FOOD AND PATIENT EATING ON HER OWN WITH NO ISSUES. PATIENT WILL CALL WHEN SHE IS DONE. CALL LIGHT IN REACH.
--- NOTE | 2025-04-07 09:00 | NUR ---
STAFF IN AND PATIENT ASISSTED UP TO CHAIR WITH 2 PERSON ASSIST. PATIENT TOLERATED WELL AND HAD A SLOW SHUFFLE TO CHAIR WITH WALKER. PATIENT SITTING IN CHAIR WORKING ON MAKING [employer]. PATIENT HAS CALL LIGHT IN LAP. PATIENT ON 3L NC.
[2025-04-07] MEDS ORDERED: BUMETANIDE 1 MG TAB PO SCH ×2 (09:01→13:07)
[2025-04-07] MEDS ORDERED: POTASSIUM CHLORIDE 10 MEQ TABCR PO ONE (09:15)
--- NOTE | 2025-04-07 09:36 | NUR ---
ASSISTED PATIENT WITH BRUSHING HER TEETH.
[2025-04-07] MEDS ORDERED: POTASSIUM CHLORIDE 20 MEQ/15 ML CUP PO ONE (09:45)
--- NOTE | 2025-04-07 10:30 | NUR ---
PATIENT HAD A BM AND WAS ASSISTED BACK TO BED WITH MAX 2 PERSON ASSIST. PATIENT CLEANED AND NOW RESTING IN BED WORKING ON HER CARDS AT THIS TIME.
--- NOTE | 2025-04-07 12:44 | NUR ---
PATIENT FINISHED EATING LUNCH AND NOW RESTING IN BED. PATIENT HAS FRESH WATER AND ICE CHIPS. PATIENT GOING TO REST FOR NOW AND WORK ON HER Poll Everywhere IN A LITTLE BIT.
--- NOTE | 2025-04-07 13:00 | NUR ---
PATIENT HR ELEVATED AND PATIENT REPORTS INCREASED SOB. PLACED ON 3L NC. NOTIFIED AND NEW ORER FOR METOPROLOL. STAFF STAYING WITH PATIENT FOR SUPPORT. PATIENT WILL FRANTICALLY CALL STATING SHE CANT BREATH.
[2025-04-07] MEDS ORDERED: METOPROLOL SUCCINATE 25 MG TABCR PO SCH ×2 (13:06→16:00)
--- NOTE | 2025-04-07 13:15 | NUR ---
RT NOTIFIED OF CONTINUED INCREASED SOB. WILL BE DOWN TO ASSESS PATIENT.
[2025-04-07] MEDS ORDERED: MORPHINE SULFATE 4 MG/ML VIAL IV PRN (13:45)
--- NOTE | 2025-04-07 14:00 | NUR ---
THIS RN BACK FROM BREAK AND PATIENTS SOB IS WORSE. PATIENT RECIVED A DOSE OF MORPHINE, EKG COMPLETED, XRAY ORDERED. PATIENT HAS CONTINUED TO HAVE NO URINE OUTPUT SINCE APROC 1200. IS AWARE.
[2025-04-07] MEDS ORDERED: BUMETANIDE 1 MG/4 ML VIAL IV ONE (15:00)
[2025-04-07 15:06] LABS: BLOOD/HGB, URINE LARGE (Negative); KETONE, URINE TRACE (Negative); LEUK ESTERASE, URINE NEGATIVE (negative); NITRITE, URINE POSITIVE (negative)
[2025-04-07 15:12] LABS: BACTERIA, URINE 2+ /hpf (negative); CASTS, URINE NONE SEEN \\lpf; CRYSTALS, URINE NONE SEEN (0-1+)
[2025-04-07 15:13] LABS: EPITHELIAL CELLS, URINE SQUAMOUS 1+ /lpf (0-1+); REFLEX CULTURE, URINE Yes (No)
--- NOTE | 2025-04-07 15:15 | NUR ---
PATIENT CONTINUES TO HAVE NO URINE OUTPUT. AWARE AND HAS BEEN IN UNIT. BUMEX PUSH IV GIVEN. PATIENT SLEEPING ON BIPAP AT THIS TIME. PATIENT WOKE AND ASKED HOW LONG SHE NEEDS TO WEAR THE BIPAP. UPDATED ON PLAN OF CARE. NO OTHER QUESTIONS AT THIS TIME.
[2025-04-07] MEDS ORDERED: BUMETANIDE 1 MG/4 ML VIAL ONE (15:17)
--- NOTE | 2025-04-07 16:47 | NUR ---
PATIENT IS RESTING IN BED ON BIPAP AND IS TOLERATING IT WELL. PATIENTS FULLER IS NOW PRODUCING URINE AFTER BUMEX IV. ENCOURAGING PATIENT TO REST AT THIS TIME. CALL LIGHT IN REACH.
[2025-04-07] MEDS ORDERED: PIPERACILLIN/TAZOBACTAM 4.5 GM in DEXTROSE 5% 100 ML IV ONE ×2 (19:30→22:00)
[2025-04-07 19:57] LABS: GLOMERULAR FILTRATION RATE,EST 50.0 mL/min (>60); UREA NITROGEN 14.0 mg/dL (7-18)
--- NOTE | 2025-04-07 21:00 | NUR ---
PATIENT SITTING UP IN BED WRITING [employer] CARDS. PATIENT ASKED FOR ICE CHIPS, PROVIDED, FRESH ICE WATER PROVIDED, HELD METOPROLOL DUE TO SOFT B/P. NO STOOL SOFTNERS TODAY DUE TO DIARRHEA X5 ON DAYSHIFT.
[2025-04-08] VITALS (16 sets, daily range): BP systolic 79–1001; BP diastolic 34–69
[2025-04-08] MEDS ORDERED: PIPERACILLIN/TAZOBACTAM 4.5 GM in DEXTROSE 5% 100 ML IV SCH
--- NOTE | 2025-04-08 00:03 | NUR ---
PATIENT RESTING IN BED, HAD COUGHING SPELL, BECAME SHORT OF BREATH, RR 32/MIN, 2MG IV MORPHINE ADMINISTERED PRN FOR SHORT OF BREATH. R.T. INTO ATTEMPT TO PLACE BIPAP AT THIS TIME. PATIENT DEPENDS WAS CHANGED FOR SMEAR OF STOOL. BARRIER CREAM PLACED ON BACK SIDE, DRESSINGS REMAIN INTACT ON HER COCCYX, PATIENT TOLERATED TURNING IN BED WELL, FULLER CARE PROVIDED.
[2025-04-08 05:11] LABS: BASOPHILS 0.8 % (0.1-1.2); EOSINOPHILS 2.4 % (0.7-5.8); LYMPHOCYTES 20.4 % (19.3-51.7); MCH 21.1 PG (25.6-32.2); MCHC 29.7 g/dL (32.2-35.5); MCV 71.0 fL (79.4-94.8); MONOCYTES 6.4 % (4.7-12.5); NEUTROPHILS 69.2 % (34.0-71.1); RBC 5.35 M/uL (3.93-5.22)
[2025-04-08 05:31] LABS: ALT (SGPT) 83.0 U/L (14-59); AST (SGOT) 52.0 U/L (15-37); GLOMERULAR FILTRATION RATE,EST 55.0 mL/min (>60); PROTEIN, TOTAL 4.9 g/dL (6.4-8.2); UREA NITROGEN 13.0 mg/dL (7-18)
[2025-04-08 05:40] LABS: HBV SURFACE AG CONFIRMATION Non Confirmed (Non Confirmed)
[2025-04-08 05:42] LABS: HEPATITIS A ANTIBODY, IGM Negative (Negative); HEPATITIS C AB CIA INTERP Negative (Negative); HEPATITIS C ANTIBODY CIA INDEX 0.04 IV (())
[2025-04-08] MEDS ORDERED: POTASSIUM CHLORIDE 40 MEQ,LIDOCAINE HCL 1% 40 MG in DEXTROSE 5% 250 ML IV ONE (08:15)
--- NOTE | 2025-04-08 08:54 | NUR ---
PT RESTING IN BED, REPORTS BEING FINISHED WITH BREAKFAST TRAY. TRAY CLEARED FROM ROOM. CBG 87. DR GNA AT BEDSIDE
[2025-04-08] MEDS ORDERED: ARTIFICIAL TEARS 15 ML BTL OS PRN (09:00)
--- NOTE | 2025-04-08 09:59 | NUR ---
AM ASSESSMENT COMPLETE AND PATIENT STATES OVERALL SHE IS FEELING BETTER TODAY AND CAN BREATH BETTER. LUNGS ARE CLEAR WITH SOME DIMINISHED BREATH SOUNDS POSTERIOR LOWER LOBES, BUT LESS FINE CRACKLES HEARD VS A FEW DAYS AGO. EDEMA IS ALSO IMPROVING IN LEGS. UPPER THIGHS ARE STILL 2-3+ DEEP PITTING EDEMA BUT LOWER LEGS WITH JIMMY HOSE ARE ON ARE MUCH IMPROVED. PT DID WEAR BIPAP IN THE NIGHT SOME. FULLER DRAINING CONCENTRATED URINE. PT WORKING WITH PHYS THERAPY. DR. GAN IN TO SEE PATIENT AND DISCUSS PLAN OF CARE. IV POTASSIUM STARTED AND IV ZOSYN INFUSING INTO ULTRASOUND IV IN LEFT UPPER ARM-PULLS BACK BLOOD STILL BUT IS POSITIONAL. PT WANTING TO CONTINUE WORKING ON HER [employer] CARDS TO SEND THESE OUT KYRIE. WILL CONTINUE TO MONITOR.
--- NOTE | 2025-04-08 12:29 | NUR ---
PATIENT REMAINS UP IN CHAIR AFTER WORKING WITH PHYS THERAPY AND HAS BEEN DOZING OFF AND ON THROUGHOUT THE MORNING. BLOOD PRESSURES STILL SLIGHTLY LOW-CURRENTLY 88/63 (73). FULLER DRAINING CONCENTRATED URINE. PT GIVEN EYE DROPS AND CONTINUES TO C/O LEFT EYE HURTING AND EYE IS SLIGHTLY RED BUT STATES IT FEELS BETTER THAN YESTERDAY. PT'S CARLOS CONNELL HAS ARRIVED TO VISIT WITH PATIENT. PT BACK ON 2 L NC.
--- NOTE | 2025-04-08 18:12 | NUR ---
ASSISTED PATIENT BACK TO BED FROM THE CHAIR AFTER SHE FINISHED HER DINNER VIA WALKER AND GAIT BELT/2 PERSON MAX ASSIST. PATIENT CALL LIGHT IN REACH. PATIENT DENIES OTHER NEEDS AT THIS TIME.
--- NOTE | 2025-04-08 22:37 | NUR ---
PATIENT REPOSITIONED TO RIGHT SIDE WITH PILLOWS, LEGS ON PILLOWS WITH HEELS FLOATED, NEW ALLEVYN TO RIGHT BUTTOCKS. PATIENT PROVIDED WARM BLANKETS, SHE SAID SHE IS READY TO GO TO SLEEP. OXYGEN SATURATION 100% ON 1L N.C.
[2025-04-09] VITALS (12 sets, daily range): BP systolic 83–114; BP diastolic 48–76
--- NOTE | 2025-04-09 03:07 | NUR ---
PATIENT AWAKE, THIS RN INTO ROOM TO ROUND, SHE SAYS, "I WANT TO GET UP OUT OF THIS BED." THIS RN SAID, "ITS ONLY THREE IN THE MORNING, IT WOULD BE GOOD IF YOU COULD SLEEP A COUPLE MORE HOURS, SHE SAID, "I HAVE SLEPT ALL I WANT TO." SHE SAID, "I DONT SLEEP VERY LONG." THIS RN SAID, "IF YOU REALLY WANT TO GET OUT OF BED WE WILL HELP YOU GET UP TO RECLINER." SHE THEN SAID, "I DONT THINK I REALLY WANT TO." THIS RN SAID, "OK, WELL I WILL CHECK TO SEE IF YOU WANT TO GET UP I A COUPLE HOURS." SHE SAID, "OK"
[2025-04-09 05:22] LABS: BASOPHILS 0.9 % (0.1-1.2); EOSINOPHILS 3.3 % (0.7-5.8); LYMPHOCYTES 21.9 % (19.3-51.7); MCH 21.2 PG (25.6-32.2); MCHC 30.4 g/dL (32.2-35.5); MCV 69.9 fL (79.4-94.8); MONOCYTES 7.3 % (4.7-12.5); NEUTROPHILS 65.7 % (34.0-71.1); RBC 5.28 M/uL (3.93-5.22)
[2025-04-09 05:44] LABS: ALT (SGPT) 66.0 U/L (14-59); AST (SGOT) 47.0 U/L (15-37); GLOMERULAR FILTRATION RATE,EST 64.0 mL/min (>60); PROTEIN, TOTAL 4.6 g/dL (6.4-8.2); UREA NITROGEN 12.0 mg/dL (7-18)
--- NOTE | 2025-04-09 06:47 | NUR ---
PATIENT UP TO BEDSIDE COMMODE HAD SMALL BM, THEN TO RECLINER, SHE IS REPORTS SHE IS READY FOR BREAKFAST, THIS RN EXPLAINED IT WOULD BE ANOTHER HOUR BEFORE BREAKFAST CAME, OFFERED HER A SNACK, OF THE OPTIN GIVEN SHE WANTED APPLESAUCE, THIS IS PROVIDED. PATIENT IS WEAK AND UNSTEADY, TWO PERSON CONTACT ASSIST WITH FWW.
--- NOTE | 2025-04-09 07:38 | NUR ---
NURSE AND I GOT PATIENT UP TO THE BEDSIDE COMMODE. NEW PULL UP. PATIENT SITTING UP IN HER CHAIR. PATIENT WASHED HER FACE AND BRUSHED HER TEETH. WE GOT PATIENT TWO WARM BLANKETS. BED LINENS CHANGED. FRESH ICE WATER. PATIENT ASKED FOR APPLE SAUCE THIS MORING AND NURSE BROUGHT IT TO HER. SHE ATE ABOUT HALF. BLOOD SUGAR CHECK DONE. PATIENT IS WAITING FOR BREAKFAST.
--- NOTE | 2025-04-09 07:45 | NUR ---
REPORT RECEIVED FRM LADONNA GASCA. PT AWAKE AND GETTING UP INTO CHAIR AND HANDS AND FACE WASHED WITH STOVE TENDER DAMARIS. PT ALSO HAD SMALL HARD STOOL.
[2025-04-09] MEDS ORDERED: POTASSIUM CHLORIDE 20 MEQ/15 ML CUP PO SCH (08:00)
--- NOTE | 2025-04-09 08:15 | NUR ---
PT UP IN CHAIR COMPLAINING OF BACK PAIN. WITH PERSONAL FITNESS TRAINER DAMARIS ADJUSTED IN CHAIR WITH PILLOWS. PLACED WARM PACK ON SMALL OF BACK WRAPPED IN TOWEL. INSTRUCTED PT TO LET US KNOW IF IT BECAME TOO WARM.
--- NOTE | 2025-04-09 08:46 | NUR ---
REMOVED WARM PACK FROM BACK PER PT REQUEST. ADMINISTERED MORNING MEDS INCLUDING 1 SENNA 2 HAD PREVIOUSLY GIVEN HER DIAHREA PER REPORT. PT EATING BREAKFAST AND DRINKING COFEE. DENIES CONCERNS ATT.
--- NOTE | 2025-04-09 09:00 | NUR ---
INTO SEE PATIENT. PATIENT STILL WANTING TO GO TO [facility]. [facility] STARTING AUTH TODAY. SON SAMMIE UPDATED. WILLING TO PAY FOR TAXI IF PATIENT POTENTIALLY GOES TOMORROW.
[2025-04-09] MEDS ORDERED: MIDODRINE HCL 5 MG TAB PO SCH (09:45)
--- NOTE | 2025-04-09 10:19 | NUR ---
PT GIVEN SCHEDULED MEDS WO DIFF. PT DOZING IN CHAIR. CALL LIGHT IN LAP. FULLER DRAINING DARK YELLOW URINE.
--- NOTE | 2025-04-09 11:38 | NUR ---
PT ASKED TO GET TO THE BSC FOR BM. HAD A TINY SOFT BM. TRANSFERED BACK TO BED FOR A NAP. PT WAS A VERY HARD TWO PERSON PIVOT WITH FWW. PT UNABLE TO MOVE SELF IN BED. CALL LIGHT ON LAP.
--- NOTE | 2025-04-09 11:56 | NUR ---
JUAN OCAMPO IN ROOM TO DO BS CHECK, PT GIVEN LUNCH, ASSISTED WITH CUTTING UP MEAT.
--- NOTE | 2025-04-09 12:32 | NUR ---
PT CALLED WITH 8\10 BACK AND HEEL PAIN. GIVEN TYLENOL AND SCHEDULED MED.
--- NOTE | 2025-04-09 12:51 | NUR ---
PT CALLED FOR BEDPAN. CALL LIGHT IN LAP.
[2025-04-09] MEDS ORDERED: BUMETANIDE 1 MG TAB PO SCH (13:00)
--- NOTE | 2025-04-09 14:11 | NUR ---
PT RESTING IN BED WITH EYES CLOSED. TRIED TO HAVE BOWEL MOVEMENT BUT WAS UNABLE. WILL GIVE MIRALAX WHEN AWAKE.
--- NOTE | 2025-04-09 14:19 | NUR ---
DC REVIEW: NO BARRIERS TO DISCHARGE NOTED RETURN TO SNF WHEN STABLE ADD:04/10/25 NO ACTIONS REQUIRED
--- NOTE | 2025-04-09 14:56 | NUR ---
PT AWAKE, STATING SHE IS COLD. PLACED WARM BLANKET AROUND SHOULDERS. GIVEN MIRALAX TO DRINK.
--- NOTE | 2025-04-09 15:53 | NUR ---
PT ASKED TO HAVE HOME CPAP OFF AFTER 1/2 HOUR OF WEARING IT. ADMINISTERED SCHEDULED MEDS AND PT GIVEN MORE ICE WATER A ND ICE.
--- NOTE | 2025-04-09 17:00 | NUR ---
PT IV BEEPING AND APPEARS TO HAVE INFILTRATED A SMALL AMT. DC'D IV WNL. SWITCHED AB TO OTHER IV.
--- NOTE | 2025-04-09 18:11 | NUR ---
PT ATE MOST OF DINNER AND IS NOW LOOKING AT HER PHONE. PT DENIES NEEDS ATT. CLEARED PUMP.
--- NOTE | 2025-04-09 18:52 | NUR ---
PT SHIFTED FROM LEFT HIP TO RIGHT HIP PILLOW. PT DECLINES NEEDS ATT.
--- NOTE | 2025-04-09 19:45 | NUR ---
PATIENT SITTING UP IN BED POSITIONED TO LEFT WITH PILLOWS. PATIENT REPORTS SHE IS UNCOMFORTABLE. PILLOW REMOVED, PATIENT REPOSITIONED, SHE THEN SAID, "MU BUTT ITCHES." PATIENT LAYED BACK IN BED, AND WAS ABLE TO HELP WITH BED MOBILITY TO TURN, DEPENDS PLACED. BARRIER CREAM APPLIED, SHE REPORTS FEELING BETTER. WARM BLANKET, ICE CHIPS, AND ICE WATER PROVIDED.
--- NOTE | 2025-04-09 23:11 | EKG ---
[facility] [address] [place] [address] Signed Atrial fibrillation with rapid ventricular response with premature ventricular or aberrantly conducted complexes Left axis deviation Left bundle branch block Abnormal ECG When compared with ECG of 03-APR-2025 09:31, No significant change was found Confirmed by Terrence Gan MD () on 04/09/2025 11:11:25 PM Electronically Signed By: TERRENCE GAN MD 04/09/25 231 PATIENT NAME: ROBBIN OJEDA Electrocardiogram DATE OF : 39 PHYSICIAN: TERRENCE GAN MD REPORT #: [id number] REPORT IS CONFIDENTIAL AND NOT TO BE RELEASED WITHOUT AUTHORIZATION
[2025-04-10] VITALS (11 sets, daily range): BP systolic 83–107; BP diastolic 56–77
--- NOTE | 2025-04-10 01:29 | NUR ---
PATIENT REPORTS PAIN AT HER BACK 3-07/27, SHE WOULD LIKE A PAIN PILL AT THIS TIME. PRN TYLENOL ADMINISTERED WITH CRACKERS PER HER REQUEST.
[2025-04-10 05:32] LABS: BASOPHILS 1.2 % (0.1-1.2); EOSINOPHILS 3.6 % (0.7-5.8); LYMPHOCYTES 28.5 % (19.3-51.7); MCH 20.6 PG (25.6-32.2); MCHC 29.6 g/dL (32.2-35.5); MCV 69.5 fL (79.4-94.8); MONOCYTES 7.5 % (4.7-12.5); NEUTROPHILS 58.1 % (34.0-71.1); RBC 5.34 M/uL (3.93-5.22)
[2025-04-10 05:54] LABS: ALT (SGPT) 60.0 U/L (14-59); AST (SGOT) 51.0 U/L (15-37); GLOMERULAR FILTRATION RATE,EST 71.0 mL/min (>60); PROTEIN, TOTAL 4.5 g/dL (6.4-8.2); UREA NITROGEN 10.0 mg/dL (7-18)
--- NOTE | 2025-04-10 08:00 | NUR ---
REPORT RECEIVED FROM LADONNA GASCA. PT GETTING UP TO CHAIR WITH JUAN OCAMPO. REPORTEDLY SLEPT MUCH BETTER LAST NIGHT AND USED HER HOME CPCP FOR AWHILE.
--- NOTE | 2025-04-10 08:56 | NUR ---
ADMINISTERED MORNING MEDS. PT UP IN CHAIR EATING BREAKFAST. REHEATED COFFEE. FULLER DRAINING DARK YELLOW URINE. APPEARS MORE AWAKE TODAY. DENIES CONCERNS ATT.
--- NOTE | 2025-04-10 09:37 | NUR ---
CONFIRMED THAT PATIENT IS CURRENTLY MANAGED BY [facility]. LEFT MESSAGE FOR ASHLY TO DISCUSS ISSUES WITH PACER AND HOW TO PROCEED PER MD REQUEST.
--- NOTE | 2025-04-10 10:30 | NUR ---
COPY OF [employer] CARELINK REPORT FAXED TO MICHAEL AT [facility] FOR REVIEW. CONTACT PHONE#[phone] FAX [phone]
--- NOTE | 2025-04-10 11:03 | NUR ---
UPDATED MARIELA AT [facility] THAT PATIENT WILL NEED 1-2 MORE DAYS OF INPATIENT CARE PER PHYSICIAN
--- NOTE | 2025-04-10 11:15 | NUR ---
ASSISTED JUAN OCAMPO TO GIVE PT A BED BATH. WASHED HAIR, REPLACED JIMMY HOSE, GOWN AND SOCKS. ALLYVNS STILL CLEAN DRY AND INTACT, LEFT THEM ON. PT APPRECIATIVE OF CARES.
--- NOTE | 2025-04-10 11:23 | NUR ---
BP UP SLIGHTLY FROM THIS MORNING. ADMINISTERED MORNING BUMEX.
--- NOTE | 2025-04-10 11:36 | NUR ---
SPOKE WITH MICHAEL FROM [facility]. MICHAEL STATES SHE HAS BEEN IN CONTACT WITH THE [employer] REP AND THEY WERE ABLE TO REVIEW THE REPORT TOGETHER. MICHAEL STATES THAT AT THIS TIME THERE IS NO NEED FOR EMERGENT INTERVENTION AT THIS TIME. MICHAEL REQUEST CALL ONCE PATIENT IS DISCHARGE SO THAT SHE CAN SCHEDULE A OFFICE FOLLOW UP TO ADJUST SOME SETTING ON PATIENT PACEMAKER. ROSA DOUGHERTY NOTIFIED.
--- NOTE | 2025-04-10 12:04 | NUR ---
OT WORKING WITH PATIENT. WILL RETURN TO SPEAK WITH HER LATER.
--- NOTE | 2025-04-10 13:28 | NUR ---
PILLOW PLACED BEHIND PTS BACK SHE WANTED TO SIT UP MORE AND CHAIR IS UP ALL THE WAY ALREADY.
--- NOTE | 2025-04-10 14:18 | NUR ---
ALBERTO AT [facility] STATES PATIENT COULD BE ADMITTED TOMORROW MORNING, HOWEVER THEY DO NOT HAVE INSURANCE AUTH YET AND CAN NOT PLAN ADMIT UNTIL THEY HAVE AUTH. PATIENT COULD STILL RETURN TO [facility] THEN WORK ON TRANSFER TO [facility]. THIS WAS DISCUSSED WITH PATIENT AND SHE UNDERSTANDS SHE MAY NEED TO RETURN TO [facility] THEN TRANSFER FROM THERE. NO OTHER CM NEEDS AT THIS TIME.
--- NOTE | 2025-04-10 16:03 | NUR ---
PT SITTING UP IN BED TALKING TO TWO VISITORS IN ROOM. GIVEN FLOSS AFTER SHE ASKED FOR A TOOTH PICK. CALL LIGHT IN REACH. FULLER DRAINING DARK YELLOW URINE. DENIES FURTHER NEEDS.
--- NOTE | 2025-04-10 16:20 | NUR ---
PT PLACED ON BEDPAN PER REQUEST, CALL LIGHT IN LAP.
--- NOTE | 2025-04-10 16:37 | NUR ---
PT CLEANED UP AFTER USING BEDPAN. STATES THAT SHE FEELS CLEANED OUT NOW. EMPTIED URINAL AND CLEARED PUMP.
--- NOTE | 2025-04-10 16:43 | NUR ---
UPDATES FAXED TO [facility] AND [facility] AND [facility]
--- NOTE | 2025-04-10 18:06 | NUR ---
PT HAD ANOTHER BM ON BEDPAN. PT ABLE TO MOSTLY ROLL ONTO SIDE HERSELF. STATES SHE IS ALMOST READY FOR BED. CALL LIGHT ON LAP.
--- NOTE | 2025-04-10 18:43 | NUR ---
PT HAD A SMALL BM AGAIN WITH MOSTLY GAS.
--- NOTE | 2025-04-10 20:45 | NUR ---
PATIENT HAS MEDIUM SOFT FORM BM IN [facility], [facility] STATION TO HAVE THIS RN CHECK. PATIENT ABLE TO ASSIST WITH BED MOBILITY, TURNING FROM SIDE TO SIDE FOR CLEANING/CHANGING. NO SHORTNESS OF BREATH OR INCREASED WORK OF BREATHING WITH ACTIVITY NOTED.
--- NOTE | 2025-04-10 21:30 | NUR ---
PER DR.JAGOO LI TO MAKE PATIENT MED/SURG STATUS AND TRANSFER TO MED/SURG UNIT.
[2025-04-11] VITALS (9 sets, daily range): BP systolic 86–110; BP diastolic 47–75
--- NOTE | 2025-04-11 07:00 | NUR ---
MORNING REPORT RECIEVED FROM LADONNA GASCA. PT HAD NO ACUTE EVENTS DURING THE NIGHT AND IS CURRENTLY POSITIONED IN BED WITH EYES CLOSED CHEST RISE EQUAL BILAT. PT VITALS STABLE AND HR 70-80S THROUGHOUT NIGHT, PT IS ON ROOM AIR AND A&O X4 AT THIS TIME. PT HAS NO CONCERNS WHEN WOKEN WITH CALL LIGHT IN REACH.
[2025-04-11 08:40] LABS: BASOPHILS 1.1 % (0.1-1.2); EOSINOPHILS 2.6 % (0.7-5.8); LYMPHOCYTES 34.7 % (19.3-51.7); MCH 21.2 PG (25.6-32.2); MCHC 30.3 g/dL (32.2-35.5); MCV 70.0 fL (79.4-94.8); MONOCYTES 7.4 % (4.7-12.5); NEUTROPHILS 53.6 % (34.0-71.1); RBC 5.76 M/uL (3.93-5.22)
[2025-04-11 09:06] LABS: ALT (SGPT) 63.0 U/L (14-59); AST (SGOT) 56.0 U/L (15-37); GLOMERULAR FILTRATION RATE,EST 78.0 mL/min (>60); PROTEIN, TOTAL 5.1 g/dL (6.4-8.2); UREA NITROGEN 9.0 mg/dL (7-18)
--- NOTE | 2025-04-11 09:52 | NUR ---
PT SITTING UP IN BED WITH FAMILY AT BEDSIDE, PT HAS CHEST TUBE IN PLACE ON RIGHT SIDE, PT OUTPUT SERO/SANG 5ML, CHEST TUBE DRESSING CDI WITH NO LEAK PRESENT, PT HAS NO CONCERNS AND HAS CALL LIGHT IN REACH.
--- NOTE | 2025-04-11 09:58 | NUR ---
PT SITTING UP IN BED, PT SPOKE WITH CM ABOUT PLACEMENT, PT WILL BE GOING TO [facility] WEDNESDAY, PT AGREEABLE AND HAS NO QUESTIONS AT THIS TIME CALL LIGHT IN REACH IF NEEDED.
--- NOTE | 2025-04-11 09:58 | NUR ---
INSURANCE AUTH FOR SNF TO [facility]. [facility] PATIENT CAN ADMIT ON WEDNESDAY TO [facility]. PATIENT UPDATED.
[2025-04-11] MEDS ORDERED: POTASSIUM BICARBONATE/CIT AC 20 MEQ TABEF PO ONE (10:15)
--- NOTE | 2025-04-11 11:30 | NUR ---
PT HAD A LARGE BM, USING THE BSC. PT WAS A 2PA AND TOLERATED WELL WITH MAX ASSIST. PT WAS SEATED IN THE CHAIR AND HAS NO CURRENT NEEDS AT THIS TIME VITALS STABLE AND CALL LIGHT IN REACH IF NEEDED.
--- NOTE | 2025-04-11 14:17 | NUR ---
PT WORKED WITH PHYSICAL THERAPY AND OT, PT TOLERATED WELL STILL A 2PA, PT RETURNED TO BED WITH NO CURRENT CONCERNS PT BEDDING CHANGED.
--- NOTE | 2025-04-11 15:00 | NUR ---
REPORT RECEIVED FROM LADONNA ALEXANDRA. PATIENT TRASNFERED TO MED/SURG ROOM 112. PATIENT VITAL SIGNS TAKEN AND ARE STABLE. FOCUS ASSESSMENT COMPLETED. PATIENT IS ALERT AND ORIENTED. LUNG SOUNDS ARE CLEAR IN BILATERAL UPPER LOBES AND DIMINISHED IN BILATERAL LOWER LOBES. JUAN HUGHES AND JUAN SPANGLER IN ROOM CLEANING PATIENT UP FROM BOWEL MOVEMENT.
--- NOTE | 2025-04-11 15:01 | NUR ---
PT REPORT GIVEN TO LADONAN HARMON. PT TRANSPORTED VIA BED, VITALS STABLE AND PT HAS NO CONCERNS ALL BELONINGS SENT WITH PT.
--- NOTE | 2025-04-11 15:27 | NUR ---
Patient awake, alert to self and place. Scheduled zosyn started per order. Patient denies needs at this time. Call light within reach.
--- NOTE | 2025-04-11 15:29 | NUR ---
PT HAS VERY COLD HANDS - GOT TWO WARM BLANKETS ARE WRAPPED HER UP IN THEM, O2 WOULD NOT READ WHILE VITALS WERE BEING TAKEN.
--- NOTE | 2025-04-11 16:34 | NUR ---
PATIENT HAD ANOTHER BOWEL MOVEMENT. PATIENT'S BOTTOM ASSESSED, NEW ALLEVYN APPLIED TO PATIENT LEFT GLUTEAL FOLD DUE TO BEING SOILED WITH BM. SCRAP CUTTER'S X2 IN ROOM ASSISTING PATIENT. CALL LIGHT AND PERSONAL BELONGINGS ARE WITHIN REACH.
--- NOTE | 2025-04-11 18:10 | NUR ---
REPORT RECEIVED FROM LADONNA HARMON. PATIENT RESTING IN BED, RESPIRATIONS EVEN AND UNLABORED. PATIENT REMINDED TO KEEP ARM STRAIGHT FOR IV INFUSION. NO NEEDS AT THIS TIME. CALL LIGHT IN REACH
--- NOTE | 2025-04-11 21:06 | NUR ---
VS OBTAINED AND RECORDED, INTAKE AND OUTPUT DOCMENTED. ASSESSMENT COMPLETE, PATIENT ROLLED, BOWEL MOVEMENT NOTED. FRESH BRIEF, FULLER CARE COMPLETE. FOREHEAD CPOX PLACED ON PATIENT, FINGERS AND TOES COLD. SPO2 WITH FOREHEAD CPOX 100%. CPOX AT BEDSIDE, TELE BATTERY PLACED IN MONITOR. FRESH WATER PROVIDED, NO FURTHER NEEDS, CALL LIGHT IN REACH
--- NOTE | 2025-04-11 23:00 | NUR ---
CALL LIGHT ANSWERED, PATIENT HAD BOWEL MOVEMENT, STATES SHE DOESN'T KNOW WHEN SHE IS GOING TO HAVE THEM, UNTIL SHE DOES. PATIENT CLEANED, NEW BRIEF, BARRIER CREAM ON SKIN, FULLER CARE. HOB ADJUSTED PER REQUEST. NO NEEDS, CALL LIGHT IN REACH
[2025-04-12] VITALS (11 sets, daily range): BP systolic 94–109; BP diastolic 48–66
--- NOTE | 2025-04-12 | NUR ---
CALL LIGHT ANSWERED, PATIENT PLACED ON BED LOPEZ PER REQUEST FOR BM.
--- NOTE | 2025-04-12 00:28 | NUR ---
PATIENT OFF BED LOPEZ, VS OBTAINED. PATIENT HAD BOWEL MOVEMENT, CLEANED. IV MEDICATION STARTED PER ORDER. NO FURTHER NEEDS, CALL LIGHT IN REACH
--- NOTE | 2025-04-12 02:54 | NUR ---
ROUNDED ON PATIENT, PATIENT RESTING WITH EYES CLOSED, RESPIRATIONS EVEN AND UNLABORED. NO NEEDS, CALL LIGHT IN REACH
--- NOTE | 2025-04-12 03:22 | NUR ---
CALL LIGHT ANSWERED, PATIENT REQUESTED TO BE PUT ON BED LOPEZ FOR BOWEL MOVEMENT. NO OTHER NEEDS
--- NOTE | 2025-04-12 04:28 | NUR ---
ROUNDED ON PATIENT, IV MEDICATION COMPLETE. IV SALINE LOCKED. REPSIRATIONS EVEN AND UNLABORED. NO NEEDS, CALL LIGHT IN REACH
--- NOTE | 2025-04-12 05:17 | NUR ---
ROUNDED ON PATIENT, VS OBTAINED AND RECORDED, INTAKE AND OUTPUT DOCUMENTED. LUNG SOUNDS AUSCULTATED. PATIENT REQUESTED TO BE PUT ON THE BED LOPEZ. SHE DENIES OTHER NEEDS, CALL LIGHT IN REACH
--- NOTE | 2025-04-12 05:52 | NUR ---
PATIENT OFF BED LOPEZ, NO BOWEL MOVEMENT. GIVEN WATER. NO NEEDS, CALL LIGHT IN REACH
[2025-04-12 05:53] LABS: BASOPHILS 1.4 % (0.1-1.2); EOSINOPHILS 1.7 % (0.7-5.8); LYMPHOCYTES 39.4 % (19.3-51.7); MCH 21.2 PG (25.6-32.2); MCHC 30.2 g/dL (32.2-35.5); MCV 70.0 fL (79.4-94.8); MONOCYTES 9.4 % (4.7-12.5); NEUTROPHILS 47.4 % (34.0-71.1); RBC 5.67 M/uL (3.93-5.22)
[2025-04-12 06:03] LABS: SMEAR REVIEW BLOOD SEE COMMENTS
[2025-04-12 06:29] LABS: ALT (SGPT) 62.0 U/L (14-59); AST (SGOT) 57.0 U/L (15-37); GLOMERULAR FILTRATION RATE,EST 81.0 mL/min (>60); PROTEIN, TOTAL 5.3 g/dL (6.4-8.2); UREA NITROGEN 7.0 mg/dL (7-18)
--- NOTE | 2025-04-12 07:00 | NUR ---
REPORT RECEIVED FROM DAY SHIFT RN EDEN. PATIENT IS LYING IN BED WITH HOB ELEVATED. PATIENT WITH EYES CLOSED AND RESPIRATIONS ARE EVEN AND UNLABORED. PATIENT IS ON ROOM AIR. CALL LIGHT AND PERSONAL BELONGINGS ARE WITHIN REACH.
[2025-04-12] MEDS ORDERED: acetaZOLAMIDE 250 MG TAB PO ONE (07:45)
[2025-04-12] MEDS ORDERED: METOPROLOL SUCCINATE 25 MG TABCR PO SCH (07:45)
--- NOTE | 2025-04-12 08:39 | NUR ---
PATIENT IS SITTING UPRIGHT IN THE BED WITH EYES OPEN AND RESPIRATIONS ARE EVEN AND UNLABORED. BREAKFAST TRAY IS SET UP IN FRONT OF THE PATIENT. JUAN SPANGLER IS IN THE ROOM AT THIS TIME. CALL LIGHT AND PERSONAL BELONGINGS ARE WTIHIN REACH.
[2025-04-12] MEDS ORDERED: BUMETANIDE 1 MG TAB PO SCH (09:00)
[2025-04-12] MEDS ORDERED: POTASSIUM BICARBONATE/CIT AC 20 MEQ TABEF PO ONE (09:00)
[2025-04-12] MEDS ORDERED: POTASSIUM CHLORIDE 10 MEQ TABCR PO ONE (09:00)
--- NOTE | 2025-04-12 09:56 | NUR ---
PATIENT IS IN BED AT THIS TIME, LADONNA ROWELL CHARTED VITALS AND I&O'S, I GOT A WARM WASH CLOTH FOR PATIENT TO WASH FACE AND WE DID ORAL CARE. I CLEANED UP HER ROOM A BIT. GOT FRESH ICE WATER AND NOTHING ELSE NEEDED AT THIS TIME. CALL LIGHT WITH IN REACH.
--- NOTE | 2025-04-12 10:09 | NUR ---
PATIENT IS LYING IN BED WITH HOB ELEVATED. PATIENT WITH EYES OPEN AND RESPIRATIONS ARE EVEN AND UNLABORED. CALL LIGHT AND PERSONAL BELONGINGS ARE WITHIN REACH.
--- NOTE | 2025-04-12 10:35 | NUR ---
JUAN SPANGLER AND JUAN CALHUON ARE IN THE ROOM AT THIS TIME. PATIENT IS LYING ON HER LEFT SIDE AND GETTING CLEANED UP. BUTTOCKS/COCCYX VISUALIZED WITH BLANCHABLE REDNESS AND ONE OPEN AREA. NEW ALEVYNS PLACED AT THIS TIME PER ORDERS IN THE NURSE NOTIFY. ACETYLENE OPERATOR'S REPORTED NO FURTHER NEEDS AT THIS TIME. CALL LIGHT AND PERSONAL BELONGINGS ARE WITHIN REACH.
--- NOTE | 2025-04-12 10:49 | NUR ---
PATIENT WAS IN BED AT THIS TIME, JUAN CALHOUN AND I PUT HER ON THE BED LOPEZ, CHANGED HER BREIF, GOT HER MOVED TO THE CHAIR, CHANGED HER LINENS, CALL LIGHT WITH IN REACH AND NOTHING ELSE NEEDED AT THIS TIME.
--- NOTE | 2025-04-12 11:19 | NUR ---
PATIENT IS SITTING IN THE CHAIR WITH BILATERAL LOWER EXTREMITIES ELEVATED. PATIENT WITH EYES OPEN AND RESPIRATIONS ARE EVEN AND UNLABORED. CALL LIGHT AND PERSONAL BELONGINGS ARE WITHIN REACH.
--- NOTE | 2025-04-12 11:53 | NUR ---
ZENA CARE AND FULLER CARE COMPLETE AT THIS TIME. PATIENT WITH SMEAR NOTED ON BREIF. PATIENT REMAINS IN THE CHAIR WITH BILATERAL LOWER EXTREMITIES ELEVATED. JUAN CALHOUN IS IN THE ROOM AT THIS TIME AND GETTING BLOOD SUGAR. CALL LIGHT AND PERSONAL BELONGINGS ARE WITHIN REACH.
--- NOTE | 2025-04-12 12:16 | NUR ---
PATIENT IS SITTING IN THE CHAIR WITH BILATERAL LOWER EXTREMITIES ELEVATED. PATIENT WITH EYES OPEN AND RESPIRATIONS ARE EVEN AND UNLABORED. CALL LIGHT AND PERSONAL BELONGINGS ARE WITHIN REACH. PATIENT IS EATING LUNCH.
--- NOTE | 2025-04-12 13:10 | NUR ---
REPORT RECEIVED FROM LELIA Jaquez RN. PATIENT CURRENTLY ON BED LOPEZ. NO REQUESTS. CALL LIGHT IN REACH.
--- NOTE | 2025-04-12 13:36 | NUR ---
PATIENT TRANSFERRED BACK TO BED BY PATRICIA LIFT. PATIENT TOELRATED WELL. PATIENT IS NOW SITTING ON THE BEDPAN. PATIENT EDUCATED TO CALL WHEN FINISHED. CALL LIGHT AND PERSONAL BELONGINGS ARE WITHIN REACH.
--- NOTE | 2025-04-12 14:12 | NUR ---
PATIENT MAX ASSIST OFF OF BED LOPEZ. PATIENT HAS TWO SMALL, HARD BALLS OF STOOL. PATIENT DENIES ABDOMINAL PAIN OR FURTHER NEED TO DEFECATE. ZENA-CARE PROVIDED. PATIENT REQUESTS ICE CHIPS - PROVIDED. NO OTHER REQUESTS. BED RAILS UP X2, CALL LIGHT IN REACH.
--- NOTE | 2025-04-12 15:49 | NUR ---
WARM BLANKET PROVIDED. PATIENT HAS NO REQUESTS AT THIS TIME. CALL LIGHT IN REACH.
--- NOTE | 2025-04-12 17:11 | NUR ---
PATIENT SAT UP IN BED TO EAT SUPPER AT THIS TIME. BG 100, NO INSULIN ADMINISTERED. PATIENT HAS NO REQUESTS. CALL LIGHT IN REACH.
--- NOTE | 2025-04-12 19:20 | NUR ---
VERBAL REPORT RECEIVED FROM BLAKE RN. PATIENT IS RESTING IN BED AWAKE AT THIS TIME, DENIES ANY NEEDS. CALL LIGHT WITHIN REACH.
--- NOTE | 2025-04-12 20:59 | NUR ---
MEDICATION ADMINISTRATION COMPLETE. PATIENT IS AWAKE AND ALERT, SITTING UP IN BED AND WATCHING TV AT THIS TIME. PATIENT DENIES ANY NEEDS AT THIS TIME. CALL LIGHT WITHIN REACH.
--- NOTE | 2025-04-12 21:03 | NUR ---
FRESH ICE WATER AND WARM BLANKET PROVIDED PER PATIENT REQUEST. CALL LIGHT WITHIN REACH.
[2025-04-13] VITALS (11 sets, daily range): BP systolic 93–118; BP diastolic 50–64
--- NOTE | 2025-04-13 00:12 | NUR ---
PATIENT USES CALL LIGHT. FRESH ICE WATER PROVIDED PER PATIENT REQUEST. PATIENT IS SITTING UP WATCHING TV AT THIS TIME AWAKE. CALL LIGHT WITHIN REACH.
--- NOTE | 2025-04-13 00:55 | NUR ---
PATIENT USES CALL LIGHT. REPOSITIONED FOR COMFORT PER PATIENT REQUEST. PILLOW UNDER LEFT HIP FOR OFFLOADING. CALL LIGHT WITHIN REACH. PATIENT AWAKE WATCHING TV AT THIS TIME. BED ALARM ON FOR PATIENT SAFETY.
--- NOTE | 2025-04-13 01:34 | NUR ---
COMMUNITY SERVICES MANAGER OBTAINED VITALS AND I&O. PT STATES NO NEEDS AT THIS TIME. CALL LIGHT WITHIN REACH.
--- NOTE | 2025-04-13 03:22 | NUR ---
PATIENT RESTING IN BED EYES CLOSED. PATIENT REFUSED REPOSITIONING EVEN THOUGH LEANING FORWARD. THIS RN EDUCATES PATIENT ON SAFETY. BED ALARM ON FOR PATIENT SAFETY. CALL LIGHT WITHIN REACH. PATIENT DENIES ANY FURTHER NEEDS AT THIS ITME.
--- NOTE | 2025-04-13 04:27 | NUR ---
PATIENT GIVEN WARM BLANKET PER PATIENT REQUEST. NO FURTHER NEEDS AT THIS TIME. CALL LIGHT WITHIN REACH. BED ALARM ON FOR PATIENT SAFETY.
--- NOTE | 2025-04-13 05:59 | NUR ---
LAY OUT WORKER OBTAINED VITALS AND I&O. PT STATES NO NEEDS AT THIS TIME. CALL LIGHT WITHIN REACH.
[2025-04-13 06:00] LABS: ALT (SGPT) 57.0 U/L (14-59); AST (SGOT) 60.0 U/L (15-37); GLOMERULAR FILTRATION RATE,EST 73.0 mL/min (>60); PROTEIN, TOTAL 5.1 g/dL (6.4-8.2); UREA NITROGEN 8.0 mg/dL (7-18)
--- NOTE | 2025-04-13 06:30 | NUR ---
PT REPOSITIONED TO LEFT SIDE PER REQUEST.
--- NOTE | 2025-04-13 07:09 | NUR ---
REPORT RECEVIED FROM MUSEUM TOUR GUIDE LADONNA TAYLOR. PATIENT IS LYING IN BED WITH HOB ELEVATED. PATIENT WITH EYES CLOSED AND RESPIRATIONS ARE EVEN AND UNLABORED. CALL LIGHT AND PERSONAL BELONGINGS ARE WITHIN REACH.
--- NOTE | 2025-04-13 08:19 | NUR ---
INTO SEE PATIENT. PATIENT UPDATES FAXED TO [facility]. [facility] WILL ADMIT [place]. ATTEMPTED TO CALL SON AND UPDATE.UPDATED CAREGIVER TO BRING CLOTHES IN AT SOME POINT THIS WEEKEND. NO FUTHER CM NEEDS.
--- NOTE | 2025-04-13 08:46 | NUR ---
PATIENT IS LYING IN BED WITH HOB ELEVATED. PATIENT WITH BREAKFAST TRAY SET UP IN FRONT OF HER. PATIENT WITH EYES OPEN AND RESPIRATIONS ARE EVEN AND UNLABORED. PATIENT IS ON ROOM AIR. TV IS ON. CALL LIGHT AND PERSONAL BELONGINGS ARE WITHIN REACH.
[2025-04-13] MEDS ORDERED: POTASSIUM CHLORIDE 10 MEQ TABCR PO ONE (09:00)
[2025-04-13] MEDS ORDERED: POTASSIUM BICARBONATE/CIT AC 20 MEQ TABEF PO ONE (09:00)
[2025-04-13] MEDS ORDERED: ALBUMIN HUMAN 25% 100 ML BTL IV ONE (09:45)
--- NOTE | 2025-04-13 10:59 | NUR ---
IV SITE FLUSHED WITH 10 ML NORMAL SALINE. IV ALBUMIN STARTED AT THIS TIME. IV SITE REMAINS CLEAN, DRY, AND INTACT. PATIENT EDUCATED ON IF THE IV SITE HURTS OR TURNS RED TO PRESS THE CALL LIGHT. PATIENT EXPRESSED UNDERSTANDING. CALL LIGHT AND PERSONAL BELONGINGS ARE WITHIN REACH.
--- NOTE | 2025-04-13 12:35 | NUR ---
PATIENT IS LYING IN BED WITH HOB ELEVATED. PATIENT WITH EYES OPEN AND RESPIRATIONS ARE EVEN AND UNLABORED. PATIENT IS EATING LUNCH. PATIENT REMAINS ON ROOM AIR WITH THE TV ON. CALL LIGHT AND PERSONAL BELONGINGS ARE WITHIN REACH.
--- NOTE | 2025-04-13 13:18 | NUR ---
IV SITE REMAINS SALINE LOCKED AND IS CLEAN, DRY, AND INTACT.
--- NOTE | 2025-04-13 14:21 | NUR ---
PATIENT IS LYING IN BED WITH HOB ELEVATED. PATIENT WITH EYES OPEN AND RESPIRATIONS ARE EVEN AND UNLABORED. CALL LIGHT AND PERSONAL BELONGINGS ARE WITHIN REACH.
--- NOTE | 2025-04-13 15:24 | NUR ---
JUAN HUGHES IS IN THE ROOM AT THIS TIME.
--- NOTE | 2025-04-13 17:04 | NUR ---
PATIENT IS LYING IN BED WITH HOB ELEVATED. PATIENT WITH EYES OPEN AND RESPIRATIONS ARE EVEN AND UNLABORED. PATIENT IS ON ROOM AIR. CALL LIGHT AND PERSONAL BELONGINGS ARE WITHIN REACH.
--- NOTE | 2025-04-13 18:10 | NUR ---
PATIENT IS LYING IN BED WITH HOB ELEVATED. PATIENT WITH EYES OPEN AND RESPIRATIONS ARE EVEN AND UNLABORED. PATIENT IS EATING DINNER AND ON HER PHONE. CALL LIGHT AND PERSONAL BELONGINGS ARE WITHIN REACH.
--- NOTE | 2025-04-13 18:31 | NUR ---
PT DID NOT WANT TO WALK, PUREWICK WAS PLACED PER RN. BARRIER CREAM IS BEING USED AROUND ANUS PT REPORTS AREA TO BE SORE. RN NOTED AREA, SHE WAS REPLACING BARRIER PADS ON NEARBY PT WOUNDS. PARTIAL LINEN CHANGE DUE TO PT MAKING MESSES AROUND DINNER EATING. PT HAS CALL LIGHT ON LAP. PT HAS FRESH WATER NEAR BED. PT REORTS NEEDING NOTHING MORE AT THIS TIME.
--- NOTE | 2025-04-13 19:40 | NUR ---
VERBAL REPORT RECEIVED FROM LELIA DOUGHERTY. LE RN PLACED NEW ALLEVYN DRESSING X2 ON BUTTOCKS. LE IN ROOM AT THIS TIME. NO FURTHER NEEDS AT THIS TIME.
--- NOTE | 2025-04-13 19:54 | NUR ---
FEED IN WORKER AND LADONNA LUJAN CHANGED PT BREIF AND PUREWICK DUE TO INCONT BM. VITALS AND I&O OBTAINED. PT STATES NO FURTHER NEEDS AT THIS TIME. CALL LIGHT WITHIN REACH AND BED ALARM ON.
--- NOTE | 2025-04-13 20:55 | NUR ---
MEDICATION ADMINISTRATION COMPLETE. PATIENT TOOK PILLS WITH APPLESAUCE. PATIENT IS SITTING UP IN BED AT THIS TIME. DENIES ANY SOB. FRESH ICE WATER PROVIDED. PATIENT DENIES ANY FURTHER NEEDS AT THIS TIME. CALL LIGHT AND PERSONAL BELONGINGS IN REACH. BED ALARM ON FOR PATIENT SAFETY.
--- NOTE | 2025-04-13 23:30 | NUR ---
PATIENT RESTING IN BED EYES CLOSED. RESPIRATIONS EVEN AND UNLABORED. CALL LIGHT WITHIN REACH. BED ALARM ON FOR PATIENT SAFETY.
[2025-04-14] VITALS (9 sets, daily range): BP systolic 101–123; BP diastolic 58–63
--- NOTE | 2025-04-14 02:26 | NUR ---
PATIENT INCONTINENT OF STOOL. ZENA CARE PERFORMED, FRESH BRIEF CHANGE AND LINEN CHANGE. BARRIER CREAM APPLIED. PUREWICK CHANGED. PATIENT EDUCATED TO NOTIFY STAFF TO TRY BEDPAN. PATIENT REPOSITIONED IN BED FOR COMFORT. FRESH ICE CHIPS PROVIDED PER PATIENT REQUEST. CALL LIGHT WITHIN REACH. BED IN LOW POSITION. BED ALARM ON FOR PATIENT SAFETY.
--- NOTE | 2025-04-14 05:30 | NUR ---
PATIENT RESTING IN BED AT THIS TIME. LAB IN ROOM. FRESH ICE WATER AND ICE CHIPS PROVIDED. REPOSITIONED IN BED. CALL LIGHT WITHIN REACH.
--- NOTE | 2025-04-14 05:59 | NUR ---
PATIENT RESTING IN BED EYES CLOSED, RESPIRATIONS EVEN AND UNLABORED. NO NEEDS AT THIS TIME CALL LIGHT WITHIN REACH.
[2025-04-14 06:02] LABS: ALT (SGPT) 52.0 U/L (14-59); AST (SGOT) 47.0 U/L (15-37); GLOMERULAR FILTRATION RATE,EST 76.0 mL/min (>60); PROTEIN, TOTAL 5.5 g/dL (6.4-8.2); UREA NITROGEN 7.0 mg/dL (7-18)
--- NOTE | 2025-04-14 06:59 | NUR ---
CALL LIGHT ANSWERED. PT NEEDED TO HAVE BM. SWITCHGEAR REPAIRER AND LADONNA ORTEGA PLACED PT ON BED LOPEZ. PT INSTRUCTED TO CALL WHEN DONE. CALL LIGHT ANSWERED. BED LOPEZ REMOVED AND PUREWICK AND BREIF CHANGED. BARRIER CREAM APPLIED. PT STATES NO FURTHER NEEDS AT THIS TIME. CALL LIGHT WITHIN REACH.
[2025-04-14] MEDS ORDERED: BUMETANIDE 1 MG TAB PO SCH (12:00)
--- NOTE | 2025-04-14 13:30 | NUR ---
PT HAD A SMALL BOWEL MOVEMENT, LINENS CHANGED, PT DIAPER CHANGE AND BARRIAR CREAM FOR RED AREAS IN ZENA AREA. THE FRONT OF PT LOOKS LESS RED THAN YESTERDAY. CALL LIGHT IS ON PT'S LAP, AND SIDE RAILS ARE UP FOR SAFETY REASONS. PT HAS A VISITOR RIGHT NOW, BLINDS UP AND LIGHTS ON IN THE ROOM. PT AWAKE AND ALERT, BUT CAN NOT HEAR WHEN TRYING TO COMMUNICATE TO HER.
--- NOTE | 2025-04-14 19:15 | NUR ---
PT HAD A SMALL BOWEL MOVEMENT AND THE PUREWICK WAS NOT CATCHING ALL THE URINE, LINEN CHANGE AND PUREWICK CHANGE WAS COMPLETED. PT HAS FRESH ICE AND ICE WATER NEAR BED, CALL LIGHT ON HER LAP. BED RAILS UP FOR SAFETY. PT REPORTS NEEDING NOTHING MORE AT THIS TIME. PT DID NOT WANT TO COMPLETE ORAL CARE, BUTI AM, NOT SURE SHE UNDERSTOOD, SO WHEN I SHOWED HER THE TOOTHBRUSH SHE REFUSED AND SAID "LATER".
--- NOTE | 2025-04-14 19:24 | NUR ---
pt changed her mind about oral care - we completed oral care.
--- NOTE | 2025-04-14 21:31 | NUR ---
pt on room air, lungs clear charu t bases, cleared with cough. pt is very zuni. Cooperative wtih vitals, accuchecks and assessments, abd soft, large, AARON, LBM today, edema to knees tedhose bilat, allevyn dressings to both heels area intact, bruising arms and le. SL LFA, cyanotic fingers, cold to touch, sats 88% after applying warm pads to both hands, slight cynotic area toes as before, no changes. elevated with pillows, purewick changed, tender, all carese explained. CBG 140, no coverage needed
--- NOTE | 2025-04-14 23:14 | NUR ---
PT CALLS NURSES STATION DUE TO DOPPIGN ICE ON HER BED. THIS RN PICKS UP THE ICE AND PLACES DRY BLANKET ON PT. PT ASKS TO BE CHECKED FOR STOOL NONE SEEN WHEN CHECKED. PT REPORTS NO OTHER NEEDS AT THIS TIME, CALL LIGHT WITHIN REACH, BED AT LOWEST POSITION.
[2025-04-15] VITALS (8 sets, daily range): BP systolic 101–116; BP diastolic 46–70
--- NOTE | 2025-04-15 01:52 | NUR ---
resting, eyes closed, on room air, no s/sx distress. leg elevated with pillows, tedhose in plce
[2025-04-15 05:39] LABS: ALT (SGPT) 49.0 U/L (14-59); AST (SGOT) 51.0 U/L (15-37); GLOMERULAR FILTRATION RATE,EST 78.0 mL/min (>60); PROTEIN, TOTAL 5.4 g/dL (6.4-8.2); UREA NITROGEN 8.0 mg/dL (7-18)
--- NOTE | 2025-04-15 05:55 | NUR ---
Awakens easily, no c/opain, turned and repositioned, purewick changed, was incontient of urine too. skin care. tedhose in place, LE elevated, no further episodes of cyanotic fingernails, toesnails no changes , dressings bilat feel/heels in place. Pleasant andcooperative
--- NOTE | 2025-04-15 07:51 | NUR ---
PT SITTING UPRIGHT IN BED WITH EYES OPEN, APPEARS TO BE IN GOOD SPIRITS. PT DENIES ANY NEED AT THIS TIME. INFORMED PT WE WILL BE GETTING UP TO THE CHAIR THIS MORNING, SHE WAS NOT KEEN BUT DID STATE SHE NEEDS TO SO SHE DOES NOT GET A BED SORE. [facility] WITH[facility], ALL PT CARE NEEDS MET. THIS RN WILL RETURN SHORTLY AND PT VERBALIZES UNDERSTANDING.
[2025-04-15] MEDS ORDERED: POTASSIUM BICARBONATE/CIT AC 20 MEQ TABEF PO ONE (09:00)
[2025-04-15] MEDS ORDERED: POTASSIUM CHLORIDE 10 MEQ TABCR PO ONE (09:00)
--- NOTE | 2025-04-15 12:44 | NUR ---
PT SITTING UPRIGHT IN BED, HEAD ELEVATED MORE SHE IS EATING LUNCH. PT DENIES ANY NEEDS AT THIS TIME, CALL LIGHT IS WITHIN REACH. ALL PT CARE NEED MET, PT LEFT EATING LUNCH
--- NOTE | 2025-04-15 15:35 | NUR ---
PATIENT UP AND WRITTING ON NOTES A PAPER. WATER AT BEDSIDE, BED IN LOW POSITION.
--- NOTE | 2025-04-15 17:36 | NUR ---
PATIENT HAVING DINNER. INSULIN GIVEN.
--- NOTE | 2025-04-15 23:37 | NUR ---
Resting, eyes closed, on room air, LE elevated, no s/sx distress
--- NOTE | 2025-04-16 01:33 | NUR ---
Pt incontinent of arnulfo molina dc'd. will leave off for now. skin care, barrier cream to gluteal and vaginal area, Bed linen and gown changed. Turned and repositioned. MAXIM bailey bilzak, foot dressing in place. elevated with pillows. Pt declines to use CPAP at this time
--- NOTE | 2025-04-16 03:29 | NUR ---
PT USED CALL LIGHT, WAS INCONTINENT OF SOFT BM AND URINE. SKIN CARE DONE, BARRIER SKIN CREAM APPLIED TO REDDENED AREAS BETWEEN BUTTOCKS AND VGINAL AREA, CLEAN ATTENDS, REPOSITIONED IN BED, JARAD Newman DRESING IN PLACE CDI, ELEVATED WITH PILLOWS, PLEASANT AND COOPERATIVE
[2025-04-16 05:10] VITALS: BP 100/75
[2025-04-16 06:29] LABS: ALT (SGPT) 46.0 U/L (14-59); AST (SGOT) 51.0 U/L (15-37); GLOMERULAR FILTRATION RATE,EST 70.0 mL/min (>60); PROTEIN, TOTAL 5.4 g/dL (6.4-8.2); UREA NITROGEN 9.0 mg/dL (7-18)
--- NOTE | 2025-04-16 07:58 | NUR ---
HOURLY ROUNDING PATIENT SITTING UP IN BED, MARSHA NOTIFIED OF LOW BLOOD SUGAR. TWO CUPS OF ORANGE JUICE HAS BEEN GIVEN 300 ML. CALL LIGHT HAS BEEN PLACED WITHIN REACH. BOARD HAS BEEN UPDATED
--- NOTE | 2025-04-16 08:00 | NUR ---
Notified by Bonny Ken that this pt's CBG is 46 and that she is bringing her some orange juice. In with pt for assessment. Pt is A&O, pleasant affect, states she is not feeling any symptoms of hypoglycemia and was able to drink all of the orange juice without incident. Will recheck CBG shortly.
--- NOTE | 2025-04-16 09:20 | NUR ---
Spoke with Ramandeep. She cont. to plan to admit to [facility] today and travel by susy. Pt will leave around 10:30. She denies any needs. Orders completed by Dr. Mancilla and faxed to Maria E at [facility]. Friend is bringing her clothing.
[2025-04-16 10:12] VITALS: BP 99/62
[2025-04-16 10:33] VITALS: BP 99/62
--- NOTE | 2025-04-16 11:12 | NUR ---
Pt report called to [facility] and spoke with LADONNA Ambrosio. Questions answered.
== END 2025-04-16 10:40 | DRG 871 ==
LOC: ED 00:42 → CCU 02:27 → MS 02:27 → CCU 04-11 02:14 → MS 04-11 15:00
PROVIDERS: Family Medicine; Student in an Organized Health Care Education/Training Program; Surgery; ADMIT Internal Medicine; ATTEND Hospitalist
PROC: 3E03329 Introduction of Other Anti-infective into Peripheral Vein, Percutaneous Approach (ICD-10-PCS; principal; 2025-04-02)
PROC: 30233J1 Transfusion of Nonautologous Serum Albumin into Peripheral Vein, Percutaneous Approach (ICD-10-PCS; 2025-04-02)
PROC: 5A09357 Assistance with Respiratory Ventilation, Less than 24 Consecutive Hours, Continuous Positive Airway Pressure (ICD-10-PCS; 2025-04-02)
PROC: 0T9B70Z Drainage of Bladder with Drainage Device, Via Natural or Artificial Opening (ICD-10-PCS; 2025-04-02)
DX: A41.9 Sepsis, unspecified organism (principal); I50.23 Acute on chronic systolic (congestive) heart failure; J96.91 Respiratory failure, unspecified with hypoxia; I48.19 Other persistent atrial fibrillation; N17.9 Acute kidney failure, unspecified; E87.1 Hypo-osmolality and hyponatremia; I95.89 Other hypotension; K76.1 Chronic passive congestion of liver; E11.9 Type 2 diabetes mellitus without complications; Z66 Do not resuscitate; I11.0 Hypertensive heart disease with heart failure; L89.629 Pressure ulcer of left heel, unspecified stage; L89.619 Pressure ulcer of right heel, unspecified stage; L89.899 Pressure ulcer of other site, unspecified stage; K72.10 Chronic hepatic failure without coma; E87.6 Hypokalemia; H57.89 Other specified disorders of eye and adnexa; Z88.1 Allergy status to other antibiotic agents; Z86.73 Personal history of transient ischemic attack (TIA), and cerebral infarction without residual deficits; Z95.0 Presence of cardiac pacemaker; Z79.01 Long term (current) use of anticoagulants; Z79.84 Long term (current) use of oral hypoglycemic drugs
CPT/HCPCS: 36415; 71045; 71250; 73706; 76700; 76705; 80048; 80053; 80074; 81001; 82248; 82803; 83605; 83735; 83880; 84100; 84484; 85025; 85060; 85610; 87040; 87070; 87075; 87088; 87205; 87502; 93005; 93010; 93306; 94640; 94660; 94760; 94799; 96374; 96375; 97110; 97162; 97165; 97530; 97535; 99285-25; A9270; J0696; J1200; J1815; J1938; J2270; J2405; J2543; J3480; J3490; J7042; J7060; P9047; Q9967; U0002